=== PATIENT | female | born 1950 | race Caucasian/White ===

== ENCOUNTER 2016-09-12 12:16 | Inpatient (IN) | payer BC ==
[2016-09-12] MEDS ORDERED: Morphine INJ* 4 MG/ML 1 ML SYRINGE IV ONE (13:44)
[2016-09-12] MEDS ORDERED: Ondansetron INJ* 2 MG/ML VIAL IV ONE (13:44)
[2016-09-12 13:54] LABS: Hematocrit 37 % (35-47); Hemoglobin 12.4 g/dl (12.0-16.0); Mean Corpuscular HGB Conc 34 g/dl (31-36); Mean Corpuscular Hemoglobin 32 pg (27-31); Mean Corpuscular Volume 94 fL (80-97); Mean Platelet Volume 7 um3 (7.4-10.4); Red Blood Count 3.91 10^6/ul (4.0-5.4); Red Cell Distribution Width 14 % (10.5-15); White Blood Count 11.4 10^3/ul (3.5-10.8)
--- NOTE | 2016-09-12 14:07 | RAD ---
INDICATION: Atraumatic right hip pain. COMPARISON: Comparison is made with a prior x-ray study of the hips from October 11, 2015. TECHNIQUE: An AP view of the pelvis and frontal and lateral views of the right hip were obtained. FINDINGS: The bones are in normal alignment. No fracture is seen. There is moderate to severe osteoarthritic change in the right hip and severe osteoarthritic change in the left hip. There has been progression of disease from the prior study which has progressed the most in the left. IMPRESSION: MODERATE TO SEVERE OSTEOARTHRITIC CHANGE IN THE RIGHT HIP AND SEVERE OSTEOARTHRITIC CHANGE IN THE LEFT HIP WHICH HAS PROGRESSED FROM THE PRIOR STUDY.
[2016-09-12 14:10] LABS: Albumin 4.6 g/dL (3.2-5.2); BUN/Creatinine Ratio 11.3 (8-20); Calcium 9.8 mg/dL (8.6-10.3); EGFR African American 149.4 (>60); EGFR Non-African American 116.1 (>60); Globulin 3.6 g/dL (2-4); Potassium 3.8 mmol/L (3.5-5.0); Total Bilirubin 0.6 mg/dL (0.2-1.0); Total Protein 8.2 g/dL (6.4-8.9)
[2016-09-12] MEDS ORDERED: Gadoteridol* (CONTRAST) 279.3 MG/ML 10 ML IV ONE (15:34)
[2016-09-12 16:12] LABS: TSH (Thyroid Stimulating Horm) 1.22 mcIU/mL (0.34-5.60)
[2016-09-12 16:19] LABS: Free T4 1.15 ng/dL (0.61-1.12)
--- NOTE | 2016-09-12 16:40 | RAD ---
Indication: Fever, prior surgery for epidural abscess. Image sequences: Sagittal T1, T2, STIR, axial T1 and T2-weighted images of the lumbar spine were obtained. Approximately 12 mL of ProHance was injected and sagittal and axial fat-suppressed T1-weighted images were repeated. Comparison is made with previous exam dated June 28, 2016. Heterogeneous bone marrow signal is noted at L2 and L3 with endplate changes. Findings are similar to that seen on June 28, 2016. Patient is status post laminectomy from approximately L2-L5. At L4-L5 and L5-S1 the disc space appears normal. At L3-L4 there is degenerative disc disease noted. Broad-based protrusion is noted. This causes some indentation on the ventral thecal sac. This appears to be similar to that seen previously. There is enhancing epidural tissue at the ventral aspect of the thecal sac from L2 through L4 which is not significant change since previous exam. At L2-L3 there is increased broad-based protrusion with flattening of the thecal sac. Moderate degree of facet arthropathy is noted. At L1-L2 there is no disc protrusion noted. No central foraminal stenosis is noted. At T12-L1 broad-based protrusion flattens the thecal sac. At the laminectomy site again noted is a irregular shaped fluid collection which appears to BE smaller than on previous exam. This previously measured up to 11 mm at the level of L3. The AP dimension is slightly smaller and likely represents resolving postoperative fluid collections. IMPRESSION: POSTOPERATIVE CHANGES ARE NOTED WITH LAMINECTOMIES FROM L2 THROUGH L4. THERE IS INCREASING PROTRUSION NOTED AT L2-L3 WITH FLATTENING OF THE THECAL SAC AT THIS LEVEL. THERE ENHANCING TISSUE IN THE VENTRAL ASPECT OF THE DISC SPACE FROM L2 TO L3 SUGGESTIVE LIKELY REPRESENTING POSTOPERATIVE SCARRING AND HAS THIS WAS PRESENT PREVIOUSLY AND HAS NOT DISTENDED SINCE PREVIOUS EXAM. THE FLUID COLLECTION IN THE POSTERIOR ASPECT OF THE THECAL SAC APPEARS TO BE SLIGHTLY SMALLER THAN ON PRIOR EXAM.
[2016-09-12] MEDS ORDERED: Morphine INJ* 2 MG/ML 1 ML SYRINGE IV ONE (16:41)
[2016-09-12] MEDS ORDERED: LORazepam INJ* 2 MG/ML 1 ML VIAL IV PUSH ONE (16:41)
[2016-09-12] MEDS: NS 0.9% 1000 ML* 1,000 ML IV SCH (16:48)
[2016-09-12] MEDS ORDERED: Cyclobenzaprine TAB* 10 MG PO PRN (17:00)
[2016-09-12] MEDS ORDERED: Lidocaine PATCH 5%* 1 PATCH TRANSDERM SCH (17:00)
[2016-09-12] MEDS ORDERED: HYDROcodone/ACETAMIN 5-325 MG* 1 TAB PO PRN (17:00)
[2016-09-12] MEDS ORDERED: NS 0.9% 1000 ML* 1,000 ML IV SCH (17:00)
[2016-09-12] MEDS ORDERED: Acetaminophen TAB* 325 MG PO PRN (17:00)
[2016-09-12] MEDS ORDERED: Ondansetron INJ* 2 MG/ML VIAL IV PRN (17:00)
[2016-09-12 17:27] LABS: C Reactive Protein 2.29 mg/L (< 5.00)
[2016-09-12 17:52] LABS: Erythrocyte Sed Rate 50 mm/Hr (0-30)
[2016-09-12 19:51] LABS: BUN/Creatinine Ratio 11.9 (8-20); Calcium 10.1 mg/dL (8.6-10.3); EGFR Non-African American 88.6 (>60); Potassium 4.3 mmol/L (3.5-5.0)
[2016-09-12] MEDS: Heparin VIAL(*) 5000 UNITS/ML VIAL (FIVE THOUSAND) SUBCUT SCH (21:37)
[2016-09-12] MEDS ORDERED: Mouth Piece, Nicotine* 1 EACH CARTRIDGE INH PRN (22:12)
[2016-09-12] MEDS ORDERED: Nicotine Inhaler* 10 MG AMP INH PRN (22:12)
--- NOTE | 2016-09-13 00:11 | HP ---
HISTORY AND PHYSICAL: DATE OF ADMISSION: 09/12/16 PRIMARY CARE PROVIDER: Robin Vu DO ATTENDING PHYSICIAN WHILE IN THE HOSPITAL: Jane Wilkinson MD *(report dictated by Phill Xiong NP) CONSULTING NEUROSURGEON: Johan Cannon MD CHIEF COMPLAINT: Back pain. HISTORY OF PRESENT ILLNESS: Ms. Murphy is a 66-year-old female patient, who has had multiple back surgeries. She has had a laminectomy in January of last year, did have an epidural abscess requiring I and D with subsequent difficulty with wound healing. She had been doing well in the last couple of weeks; however, she thinks she may have fallen a week or so ago. She cannot really remember as to when. She landed on her knees. Today though and yesterday however, she had worsening back pain, starting in the lower back, radiating to the right side, down to the right thigh, right in the anterior portion of her thigh. She denied having any weakness. Denied having any fever or chills. She says that the pain was getting unbearable. She vomited twice and she was unable to control the pain, so she decided to come in to the ER to be evaluated today. She denied having any chest pain. She denied having any shortness of breath. She denied having any abdominal pain. There were 2 episodes of vomiting. No dysuria. No frequency. She denied having any loss of consciousness or any pruritus. She states that the pain became unbearable. She came in to the ED, was evaluated. There was concern also because it was found that her sodium was 119, but she denies having any recent medication changes and she denies being on any diuretics. Because of these findings, we were asked to evaluate for admission. PAST MEDICAL HISTORY: Significant for: 1. Hodgkin lymphoma. 2. Hypothyroid. 3. Hypertension. 4. Aortic regurgitation. 5. Spinal stenosis. 6. Anxiety. PAST SURGICAL HISTORY: 1. She has had a lumbar decompression. 2. I and D of an epidural abscess in January 2016. 3. Partial thyroidectomy. 4. Splenectomy. HOME MEDICATIONS: Include: 1. Ibuprofen 200 mg every 8 hours as needed. 2. Norvasc 2.5 mg daily. 3. Atenolol 75 mg daily. 4. Zocor 20 mg p.o. daily. 5. Synthroid 88 mcg daily. 6. Celexa 20 mg daily. ALLERGIES TO MEDICATIONS: Include LISINOPRIL and LOSARTAN. FAMILY HISTORY: Reviewed, essentially noncontributory. SOCIAL HISTORY: She is a pack a day smoker for about 40 years. She does drink 2 glasses of wine daily. Her surrogate decision maker is her friend, Wilfredo, and her brother, Isaiah. REVIEW OF SYSTEMS: There is no documented fever. She denied having any significant weight change. There was no double vision. She denies having any ear discharge. There is no rhinorrhea. No sore throat. No thyroid enlargement. She denied having any chest pain. There is no orthopnea. There is no nocturnal dyspnea. There is no abdominal pain. There was 1 episode of nausea. No vomiting. No dysuria. No frequency. No loss of consciousness. No pruritus. No skin ulcerations. Review of 14 systems completed, all others negative. PHYSICAL EXAMINATION GENERAL: At this time, Ms. Murphy is a 66-year-old female patient. She is sitting in the ER stretcher. She does not appear to be in any acute distress. VITAL SIGNS: Blood pressure 174/52 with a pulse of 78, respirations 16, O2 sat 97%, and temperature 98.8. HEENT: Head: Atraumatic and normocephalic. Eyes: Sclerae are anicteric and not pale. Throat: Oral mucosa appeared to be dry. No oropharyngeal erythema. NECK: Supple. LUNGS: Clear to auscultation bilaterally. No wheezes, rales, or rhonchi. HEART: Sounds S1, S2. Regular rate and rhythm. No murmurs, rubs, or gallops. ABDOMEN: Soft, flat, and nontender. Bowel sounds present. EXTREMITIES: Pulses were 2+ throughout. She is actually able to move all 4 extremities. She has 5/5 strength with flexion from the knees and extension at the knee. She has 5/5 strength on dorsiflexion and plantar flexion. NEUROLOGIC: She is awake, alert, and oriented x3. Speech is clear. She had no gross focal deficits. She is moving the lower extremities. Sensation is intact bilaterally. There is no numbness or tingling on my exam. She just complains subjectively of having numbness to the anterior portion of her thigh. SKIN: Grossly intact. She has an incision noted to the lumbar spine, it was palpated. There was no point tenderness along the lumbar spine and no erythema or open areas noted. DIAGNOSTIC STUDIES/LAB DATA: Today revealed WBC of 11.4, RBC of 3.91, hemoglobin 12.4, hematocrit of 37, and platelet count of 369. INR was 0.86 and PTT of 32.0. Her sodium was 119, her baseline sodium appears to run around 130. The potassium was 3.8, chloride 83, bicarb 27, BUN was 6, creatinine of 0.53, glucose 114, lactic 1.1, and calcium 9.8. Total bili 0.6, AST 35, ALT 31, and alk phos 85. Albumin 4.6. TSH 1.22 and free T3 1.15. She had a hip/pelvis x- ray, which showed moderate- to-severe osteoarthritic change in the right hip with severe osteoarthritic change in the left hip, which has progressed from the previous study. A lumbar spine MRI was obtained today, which impression read as postoperative changes are noted with laminectomies from L2 through L4. There was increasing protrusion at L2-3 with flattening of the thecal sac at this level. There is enhancing tissue in the ventral aspect of the disk space from L2-3 suggests that it is likely representing postoperative scarring and as this was present previously and has not descended since prior exam. The fluid collection in the posterior aspect of the thecal sac appears to be slightly smaller than prior exam. Old medical records were reviewed. ASSESSMENT AND PLAN: Ms. Murphy is a 66-year-old female patient coming in to the ER today with complaints of back discomfort, found to be hyponatremic. We were asked to evaluate in admission. She will be admitted under observation status for: 1. Back pain: I suspect that symptoms she is having now is probably related to the L2-3 disk space and protrusion with possible scarring. I did touch base with Dr. Cannon, who will be evaluating the patient. The plan at this point will be to go ahead and do PT and OT, pain management, and pain control. Should she spike any fevers, though I have a low threshold, start antibiotics. Blood cultures were sent. I do not believe this is reflection of her abscess. At this point, we are checking an ESR and a CRP. We will continue to follow. 2. Hyponatremia: We will go ahead and send off urine studies and serum osmol studies and cortisol level. For now though, I am going to hydrate her and repeat the BMP later tonight to see where we are headed. 3. Hodgkin lymphoma: Follow with the primary. 4. Hypothyroidism: Continue Synthroid. 5. Hypertension: Continue medications as prescribed. 6. Aortic regurgitation: Continue to follow up with her primary. 7. History of anxiety: We will continue supportive care. 8. DVT prophylaxis: She is high risk and will be placed on heparin subcu. 9. Code status: Full code. 10. Fluids, electrolytes, and nutrition: She can have a heart healthy diet and also fluid restricted. TIME SPENT: Time spent on the admission was approximately 70 minutes; greater than half the time was spent [id number] with the patient obtaining my history and physical, the other half time is spent going over the plan of care with the patient and implementing plan of care. I discussed the plan of care with my attending, Dr. Wilkinson. She is in agreement. PHILL XIONG NP CC: Dr. Vu; Dr. Cannon [id number]/CPS #: [id number] [facility] HOSPITALAayush
[2016-09-13 00:26] LABS: Urine Bilirubin Negative (Negative); Urine Glucose Negative (Negative); Urine Nitrite Negative (Negative)
[2016-09-13 01:40] LABS: BUN/Creatinine Ratio 15.5 (8-20); Calcium 9.4 mg/dL (8.6-10.3); EGFR African American 106.6 (>60); EGFR Non-African American 82.9 (>60); Potassium 3.8 mmol/L (3.5-5.0)
[2016-09-13] MEDS: Morphine INJ* 2 MG/ML 1 ML SYRINGE IV PRN ×2 (02:08→08:24)
[2016-09-13] MEDS: NS 0.9% 1000 ML* 1,000 ML IV SCH ×2 (04:35→13:35)
[2016-09-13] MEDS: Lidocaine Patch REMOVE* 1 NOTE MISC SCH ×2 (05:15→05:24)
[2016-09-13] MEDS: Heparin VIAL(*) 5000 UNITS/ML VIAL (FIVE THOUSAND) SUBCUT SCH ×3 (05:15→21:55)
[2016-09-13] MEDS: Levothyroxine TAB* 88 MCG TAB PO SCH (05:15)
[2016-09-13 06:01] LABS: Hematocrit 34 % (35-47); Hemoglobin 11.4 g/dl (12.0-16.0); Mean Corpuscular HGB Conc 34 g/dl (31-36); Mean Corpuscular Hemoglobin 33 pg (27-31); Mean Corpuscular Volume 95 fL (80-97); Mean Platelet Volume 8 um3 (7.4-10.4); Red Blood Count 3.52 10^6/ul (4.0-5.4); Red Cell Distribution Width 14 % (10.5-15); White Blood Count 6.8 10^3/ul (3.5-10.8)
[2016-09-13 06:21] LABS: BUN/Creatinine Ratio 15.7 (8-20); Calcium 9.2 mg/dL (8.6-10.3); EGFR African American 108.3 (>60); EGFR Non-African American 84.2 (>60); Potassium 3.7 mmol/L (3.5-5.0)
[2016-09-13] MEDS ORDERED: Atorvastatin* 10 MG TAB PO SCH ×2 (09:00→21:00)
[2016-09-13] MEDS ORDERED: Polyethylene Glycol 3350* 17 GM PACKET PO PRN (09:44)
--- NOTE | 2016-09-13 09:45 | PN ---
Subjective Date of Service: 09/13/16 Interval History: Patient seen this morning. Continues to have R low back and hip pain, tearful at times. Some numbness on the anterior thigh that she thinks is new. No issues with bladder/bowel incontinence. Family History: Unchanged from Admission Social History: Unchanged from Admission Past Medical History: Unchanged from Admission Objective Active Medications: Acetaminophen (Tylenol Tab*) 650 mg PO Q4H PRN Hydrocodone Bitart/Acetaminophen (Leona 5-325 Tab*) 1 tab PO Q4H PRN Amlodipine Besylate (Norvasc Tab*) 2.5 mg PO DAILY RIGO Atenolol (Tenormin Tab*) 75 mg PO DAILY RIGO Atorvastatin Calcium (Lipitor*) 10 mg PO DAILY RIGO Citalopram Hydrobromide (Celexa Tab*) 20 mg PO DAILY RIGO Cyclobenzaprine HCl (Flexeril Tab*) 10 mg PO TID PRN Device (Nicotine Mouth Piece*) 1 each INH .USE WITH NICOTROL PRN Heparin Sodium (Porcine) (Heparin Vial(*)) 5,000 units SUBCUT Q8HR [facility] Sodium Chloride (Ns 0.9% 1000 Ml*) 1,000 mls @ 150 mls/hr IV PER RATE RIGO Sodium Chloride (Ns 0.9% 1000 Ml*) 1,000 mls @ 125 mls/hr IV PER RATE RIGO Levothyroxine Sodium (Synthroid Tab*) 88 mcg PO DAILY@0600 [facility] Lidocaine (Lidoderm 5% Patch*) 1 patch TRANSDERM 1700 [facility] Morphine Sulfate (Morphine Inj (Syringe)*) 2 mg IV Q2H PRN Nicotine (Nicotine Inhaler*) 10 mg INH Q2H PRN Ondansetron HCl (Zofran Inj*) 4 mg IV Q6H PRN Pharmacy Profile Note (Lidocaine Patch Remove*) 1 note PATCH OFF 0500 [facility] Vital Signs 09/12/16 09/12/16 09/12/16 15:00 16:30 16:48 Temperature 97.9 F Pulse Rate 76 72 Respiratory 16 16 Rate Blood Pressure 174/52 147/54 (mmHg) O2 Sat by Pulse 97 99 Oximetry 09/13/16 09/13/16 09/13/16 07:16 08:05 08:24 Temperature 98.1 F 98.2 F Pulse Rate 72 71 Respiratory 16 18 16 Rate Blood Pressure 153/58 145/62 (mmHg) O2 Sat by Pulse 97 98 Oximetry Oxygen Devices in Use Now: None Appearance: Middle-aged, F, laying in bed in NAD Eyes: No Scleral Icterus Ears/Nose/Mouth/Throat: Mucous Membranes Moist Neck: NL Appearance and Movements; NL JVP Respiratory: Symmetrical Chest Expansion and Respiratory Effort, Clear to Auscultation Cardiovascular: NL Sounds; No Murmurs; No JVD, RRR Abdominal: NL Sounds; No Tenderness; No Distention Lymphatic: No Cervical Adenopathy Extremities: No Edema Skin: No Rash or Ulcers Neurological: Alert and Oriented x 3, - - No TTP alone R lower back. No pain with R passive leg raise, 3/5 strength in RLE hip flexor, no deficits in LLE Result Diagrams: 09/13/16 05:15 09/13/16 05:15 Microbiology and Other Data: Microbiology 09/12/16 17:10 Nasal Screen MRSA (PCR)(PELON) - Final Nasal Mrsa Negative Assess/Plan/Problems-Billing Assessment: Back pain, hyponatremia in a 66 yo F with hx of HTN, hypothyroidism, anxiety, spinal stenosis, multiple back surgeries including laminectomy for epidural abscess in 01/2016 - Patient Problems (1) Back pain Current Visit: Yes Comment: Likely related to disc protrusion seen on MRI. Dr. Cannon to evaluate the patient. Continue analgesia. PT/OT pending. No evidence of infection. (2) Hyponatremia Current Visit: Yes Comment: Etiology unclear although responding to IVF making SIADH less likely. Recheck BMP at 1400. Urine studies and SOsm still pending. (3) HTN (hypertension) Current Visit: Yes Comment: Continue amlodipine and atenolol (4) Hypothyroid Current Visit: Yes Comment: Continue synthroid (5) DVT prophylaxis Current Visit: Yes Comment: HSQ
[2016-09-13] MEDS ORDERED: Senna TAB PO SCH (10:00)
[2016-09-13] MEDS ORDERED: LORazepam TAB(*) 0.5 MG ONE (10:19)
[2016-09-13] MEDS: Atenolol TAB* 50 MG PO SCH (10:29)
[2016-09-13] MEDS: LORazepam TAB(*) 0.5 MG PO PRN ×2 (10:29→18:58)
[2016-09-13] MEDS: amLODIPine TAB* 5 MG PO SCH (10:30)
[2016-09-13] MEDS: Citalopram TAB* 20 MG PO SCH (10:32)
--- NOTE | 2016-09-13 11:07 | RAD ---
INDICATION: Hyponatremia. Heavy smoking history. COMPARISON: Chest x-ray December 12, 2013, September 27, 2003 TECHNIQUE: PA and lateral dual-energy views were obtained. FINDINGS: Bones/Soft Tissues: There are no acute bony findings. There is a calcified mass projecting over the right upper chest soft tissues caudal to the clavicle. This is present previously and appears unchanged. The significance is uncertain. If there is pain related to the right shoulder, suggest limited CT imaging. Cardiomediastinal: The cardiomediastinal silhouette is normal. Lungs: There are no infiltrates. Pleura: There are no pleural effusions. Other: None IMPRESSION: NO ACTIVE DISEASE. PERSISTENT CALCIFIED MASS PROJECTING OVER THE SOFT TISSUES OF THE RIGHT UPPER CHEST.
[2016-09-13 11:16] LABS: Urine Bilirubin Negative (Negative); Urine Glucose Negative (Negative); Urine Nitrite Negative (Negative)
[2016-09-13] MEDS: Acetaminophen TAB* 325 MG PO SCH ×2 (13:35→21:55)
[2016-09-13] MEDS: Gabapentin CAP(*) 100 MG PO SCH ×2 (14:54→22:18)
[2016-09-13 15:00] LABS: BUN/Creatinine Ratio 19.2 (8-20); EGFR African American 152.7 (>60); EGFR Non-African American 118.7 (>60); Potassium 3.4 mmol/L (3.5-5.0)
--- NOTE | 2016-09-13 15:27 | PN ---
Progress Note - Progress Note Note: Neurosurgery Note Patient well known to me from prior surgeries and multiple office f/u visits. She has had a complex course of an extensive lumbar epidural infection treated by decompression, complicated by poor wound healing. She received prolonged antibiotics under the direction of Dr. Cuevas. Recently she developed increased right sided back and thigh pain She was seen in the ER where her Na was 119. She has had recent malaise and vomited a couple of times. She underwent an MRI sudy that showed extensive post op changes with no significant change from a similar study done in 06/27 Psychologically, she has struggled throughout her illness with depression which appears even more pronounced at this time. Exam reveals her wound has closed She has weakness of her right quadriceps and hip flexors It is difficult to tell due to pain whether this is more pronounced or not Imp She has some metabolic issue to create her hyponatremia I have ordered a CXR to screen for underlying Malignancy given her heavy smoking history I would recommend having Psych advise on her depression as this seems even worse than her usuual state She might benefit from Gabapentin I do not see a surgical issue at this time.
[2016-09-13] MEDS ORDERED: Lidocaine PATCH 5%* 1 PATCH TRANSDERM SCH (17:00)
--- NOTE | 2016-09-13 17:53 | PN ---
Hospitalist Progress Note Na trending back down after initial improvement with IVF. Stephen elevated, remaining studies pending. Will d/c fluids and continue fluid restriction. Continue to trend Na.
[2016-09-13 19:35] LABS: BUN/Creatinine Ratio 15.2 (8-20); Calcium 9.4 mg/dL (8.6-10.3); EGFR Non-African American 90.2 (>60); Potassium 3.8 mmol/L (3.5-5.0)
[2016-09-13] MEDS: Docusate CAP* 100 MG PO SCH (21:55)
--- NOTE | 2016-09-13 22:35 | ED ---
Hayder Corbin Adam, scribed for Hamilton Barnhart MD on 09/12/16 at 1311 . Lower Extremity - HPI Summary HPI Summary: Pt is a 66 year old female presenting with right hip pain that radiates to her right lower back. The pain set on yesterday afternoon while the pt was at work ( she owns a liquor store). She has been taking Advil for the pain. She also reports numbness in her right thigh. She has been having weakness in the right leg since she had surgery with Dr. Cannon last January for an "infection in (her ) spine." She states that she had an open surgical wound for 8 months, developed MRSA, and was on 8 weeks of doxycycline. She is concerned that she could have another infection now because she feels similar to the way she felt when she had MRSA. Pt also states that she fell on her way to the bathroom last week because she was "half asleep." Her friend states that she probably fell because of the right leg weakness because it causes her to have difficulty walking. Pt denies hitting her head or losing consciousness. She last saw Dr. Cannon 10 days ago. She states that he is aware that she has been having weakness in the right leg but he does not know about the pain that set on yesterday. She denies any fever, chills, or diaphoresis. - History of Current Complaint Chief Complaint: ED Stated Complaint: RIGHT HIP PAIN Hx Obtained From: Patient Onset of Pain: Prior to Arrival - Yesterday Onset/Duration: Still Present Severity Initially: Moderate Severity Currently: Moderate Pain Intensity: 10 Pain Scale Used: 0-10 Numeric Timing: Constant, Lasting Days Location: Is Discrete @ - Right hip Associated Signs And Symptoms: Positive: Weakness - Right leg, Other - Right lower back pain, numbness in the right thigh Aggravating Factor(s): Ambulation, Movement, Weight Bearing Alleviating Factor(s): Nothing Able to Bear Weight: Yes Related History: Other - Right leg weakness since having surgery last year - Allergies/Home Medications Allergies/Adverse Reactions: Allergies Allergy/AdvReac Type Severity Reaction Status Date / Time Lisinopril Allergy See Comment Verified 06/26/16 14:05 Losartan Allergy See Comment Verified 06/26/16 14:05 Home Medications: Home Medications Ibuprofen TAB* [Advil TAB*] 200 mg PO Q8H PRN 09/12/16 [History Confirmed ] Levothyroxine TAB* [Synthroid TAB*] 88 mcg PO DAILY 09/12/16 [History Confirmed 09/12/16] PMH/Surg Hx/FS Hx/Imm Hx Endocrine/Hematology History: Reports: Hx Thyroid Disease - ON MEDS Denies: Hx Diabetes Cardiovascular History: Reports: Hx Hypertension - ON MEDS, STATES WELL CONTROLLED, Other Cardiovascular Problems/Disorders - AORTIC REGURT Denies: Hx Pacemaker/ICD Respiratory History: Denies: Hx Asthma History: Denies: Hx Dialysis, Hx Renal Disease Musculoskeletal History: Reports: Hx Arthritis - NECK. HANDS, Other Musculoskeletal History - 07/12/2015 INFECTION IN SPINE/WOUND Sensory History: Denies: Hx Hearing Aid Psychiatric History: Reports: Hx Anxiety - ON MEDS, Hx Panic Disorder - Cancer History Cancer Type, Location and Year: [facility] 1982 Hx Chemotherapy: No Hx Radiation Therapy: No - Surgical History Surgery Procedure, Year, and Place: 2005 THYROIDECTOMY [facility]. 1981 SPLEENECTOMY [facility]. 12/16/13 [facility] laminectomy L5/S1. [facility] DISCECTOMY L2-L3 Hx Anesthesia Reactions: No Infectious Disease History: Denies: Traveled Outside the [place] in Last 30 Days - Family History Known Family History: Positive: Other - Negative: malignant hyperthermia, anesthesia reaction, breast cancer - Social History Occupation: Employed Full-time Lives: Alone Alcohol Use: Daily Alcohol Amount: 2 GLASSES/NIGHT Hx Substance Use: No Substance Use Type: Reports: None Hx Tobacco Use: Yes Smoking Status (MU): Current Every Day Smoker Type: Cigarettes Amount Used/How Often: LESS THEN 1PPD 40 YRS Have You Smoked in the Last Year: Yes Review of Systems Negative: Fever, Chills, Skin Diaphoresis Negative: Erythema Negative: Sore Throat Negative: Chest Pain Negative: Shortness Of Breath, Cough Negative: Abdominal Pain, Vomiting, Nausea Negative: dysuria, hematuria Positive: Arthralgia - Right hip, Myalgia - Right lower back. Negative: Edema Negative: Rash Neurological: Other - Negative dizziness Positive: Weakness - Right leg, Numbness - Right thigh All Other Systems Reviewed And Are Negative: Yes Physical Exam - Summary Physical Exam Summary: Constitutional: Well-developed, Well-nourished, Alert. (-) Distressed Skin: Warm, Dry HENT: Normocephalic; Atraumatic Eyes: Conjunctiva normal Neck: Musculoskeletal ROM normal neck. (-) JVD, (-) Stridor, (-) Tracheal deviation Cardio: Rhythm regular, rate normal, Heart sounds normal; Intact distal pulses; The pedal pulses are 2+ and symmetric. Radial pulses are 2+ and symmetric. (-) Murmur Pulmonary/Chest wall: Effort normal. (-) Respiratory distress, (-) Wheezes, (-) Rales Abd: Soft, (-) Tenderness, (-) Distension, (-) Guarding, (-) Rebound Musculoskeletal: (-) Edema Lymph: (-) Cervical adenopathy Neuro: Alert, Oriented x3 Psych: Mood and affect Normal Triage Information Reviewed: Yes Vital Signs On Initial Exam: Initial Vitals Pulse Resp BP Pulse Ox 80 16 140/71 98 09/12/16 12:18 09/12/16 12:18 09/12/16 12:18 09/12/16 12:18 Vital Signs Reviewed: Yes Diagnostics - Vital Signs Vital Signs Pulse Resp BP Pulse Ox 09/12/16 12:18 80 16 140/71 98 - Laboratory Result Diagrams: 09/12/16 13:20 09/12/16 13:20 Lab Statement: Any lab studies that have been ordered have been reviewed, and results considered in the medical decision making process. - Radiology HIP/PELVIS X-RAY Radiology Interpretation Completed By: Radiologist - IMPRESSION: MODERATE TO SEVERE OSTEOARTHRITIC CHANGE IN THE RIGHT HIP AND SEVERE OSTEOARTHRITIC CHANGE IN THE LEFT HIP WHICH HAS PROGRESSED FROM THE PRIOR STUDY. Re-Evaluation - Re-Evaluation First Eval Re-Evaluation Time: 14:25 - Patient reveals that she has been having polyuria, 2 episodes of vomiting, and 1 episode of diarrhea yesterday. Change: Unchanged Lower Extremity Course/Dx - Course Course Of Treatment: Call out to Dr. Cannon at 14:44. He never returned the call. Patient is admitted. - Diagnoses Provider Diagnoses: Right leg weakness, Hyponatremia - Physician Notifications Discussed Care of Patient With: Dr. Lawson (hospitalist) at 14:26. Patient will be admitted. Discharge - Discharge Plan Condition: Stable Disposition: ADMITTED TO [facility] Referrals: Robin Vu DO [Primary Care Provider] - The documentation as recorded by the Hayder coronado Adam accurately reflects the service I personally performed and the decisions made by me, Hamilton Barnhart MD.
[2016-09-14] MEDS ORDERED: Lidocaine Patch REMOVE* 1 NOTE MISC PATCH OFF SCH (05:00)
[2016-09-14] MEDS: Heparin VIAL(*) 5000 UNITS/ML VIAL (FIVE THOUSAND) SUBCUT SCH (05:01)
[2016-09-14] MEDS: Levothyroxine TAB* 88 MCG TAB PO SCH (05:01)
[2016-09-14 06:44] LABS: BUN/Creatinine Ratio 14.8 (8-20); Calcium 9.5 mg/dL (8.6-10.3); EGFR Non-African American 98.7 (>60); Potassium 3.2 mmol/L (3.5-5.0)
[2016-09-14] MEDS ORDERED: Potassium Chlor TAB* 20 MEQ TAB.ER PO ONE (08:48)
--- NOTE | 2016-09-14 09:05 | DCNOTE ---
Overnight events noted. Patient states she didn't feel confused, was woken up and guessed at the time without looking at the clock. Said her R knee gave out in the bathroom as she was trying to navigate between the walker, the chair and the toilet, happens occasionally at home. Says she is feeling better this morning, pain is improving, still tearful at times. Anxious to leave. On exam, RRR, s1 and s2 present, no m/g/r, abd soft, NTND, BS+, improvement in RLE ROM Will discharge home today with PCP f/u. Suspect hyponatremia may have been due to combination of dehydration and some component of SIADH, possibly due to pain. Will continue fluid restriction until outpatient labs checked early next week.
[2016-09-14] MEDS: Acetaminophen TAB* 325 MG PO SCH (10:26)
[2016-09-14] MEDS: amLODIPine TAB* 5 MG PO SCH (10:26)
[2016-09-14] MEDS: Atenolol TAB* 50 MG PO SCH (10:26)
[2016-09-14] MEDS: Citalopram TAB* 20 MG PO SCH (10:27)
[2016-09-14] MEDS: Docusate CAP* 100 MG PO SCH (10:27)
[2016-09-14 11:45] VITALS: BP 151/60
--- NOTE | 2016-09-15 05:29 | DS ---
DISCHARGE SUMMARY: DATE OF ADMISSION: 09/12/16 DATE OF DISCHARGE: 09/14/16 PRIMARY CARE PHYSICIAN: Robin Vu DO CONSULTANTS DURING HOSPITALIZATION: Johan Cannon MD, Neurosurgery. PRIMARY DISCHARGE DIAGNOSES: 1. Back pain. 2. Lumbar radiculopathy. 3. Hyponatremia likely due to SIADH and dehydration. SECONDARY DIAGNOSES: 1. Hypothyroidism. 2. Hypertension. 3. Aortic regurgitation. 4. Spinal stenosis. 5. Anxiety. 6. Distant history of Hodgkin lymphoma. STUDIES DONE DURING HOSPITALIZATION: Hip x-ray, impression: Moderate-to- severe osteoarthritic change of the right hip and severe osteoarthritic change in the left hip, which has progressed from prior study. MRI of the lumbar spine, impression: Postoperative changes are noted with laminectomies from L2 through L4. There is increasing protrusion noted at L2, L3 with flattening of the thecal sac at this level. There is enhancing tissue in the ventral aspect of the disk space from L2 to L3, suggests this is likely representing postoperative scarring and this was present previously and has not descended since previous exam. Fluid collection in the posterior aspect of the thecal sac appears to be slightly smaller than on prior exam. Chest x-ray, impression: No active disease. Persistent calcified mass projecting over the soft tissues of the right upper chest. HISTORY OF PRESENT ILLNESS AND HOSPITAL SUMMARY: Please see the full history and physical dictated by Phill Xiong NP, for full details. Briefly, Ms. Murphy is a 66-year-old female with past medical history as above including multiple back surgeries complicated by an epidural abscess and wound healing difficulties who presented to the hospital with worsening back pain. The patient denies any trauma. She also had some nausea and vomiting as well. In the emergency department, she was found to have a sodium of 119. She had imaging done of the back as above, which showed no acute surgeries needed. Dr. Cannon consulted and thought that she should be managed symptomatically. In regards to the patient's low sodium, she was initially started on IV fluids with improvement in the sodium to 124. Urine studies subsequently came back and showed an elevated urine sodium and urine osmolality more consistent with SIADH. The patient's sodium started to trend back down. IV fluids were stopped and fluid restriction was continued with improvement in her sodium to 126 on discharge. She was instructed to continue fluid restriction at this time until she has her labs drawn early next week at which point her PCP can determine whether to liberalize this further. The patient was treated symptomatically for her back pain. She underwent physical therapy with slow improvement in her symptoms. She was able to ambulate with a walker. She will be discharged home and follow up with outpatient physicians. TIME SPENT: Total time spent on this discharge, 45 minutes. This is a summary of the hospitalization. Please see the full medical record for further details. CC: Dr. Vu; Dr. Cannon* [id number]/CPS #: [id number] [facility]
== END 2016-09-14 11:30 | disposition home health service (06) | DRG 424 ==
LOC: ED 12:16 → MED 14:48 → OBSVTOIN 09-13 09:51
PROVIDERS: ADMIT Internal Medicine; ATTEND Hospitalist
DX: E22.2 Syndrome of inappropriate secretion of antidiuretic hormone (principal); I10 Essential (primary) hypertension; M51.16 Intervertebral disc disorders with radiculopathy, lumbar region; R53.1 Weakness; M19.042 Primary osteoarthritis, left hand; M19.041 Primary osteoarthritis, right hand; F41.9 Anxiety disorder, unspecified; Z80.3 Family history of malignant neoplasm of breast; F17.210 Nicotine dependence, cigarettes, uncomplicated; E03.9 Hypothyroidism, unspecified; M48.00 Spinal stenosis, site unspecified; Z88.8 Allergy status to other drugs, medicaments and biological substances; I35.1 Nonrheumatic aortic (valve) insufficiency; E86.0 Dehydration; Z85.71 Personal history of Hodgkin lymphoma; M16.11 Unilateral primary osteoarthritis, right hip
CPT/HCPCS: 36415; 71020; 72158; 80048; 80053; 81003; 83605; 83930; 83935; 84300; 84439; 84443; 85025; 85610; 85652; 85730; 86140; 87040; 87641; 99406; A9270-GY; A9579; G0378; J1644; J2060; J2270; J2405

== ENCOUNTER 2018-09-30 21:20 | Emergency (ER) | payer MEDICARE ==
--- OUTSIDE RECORDS SUMMARY | 2018-09-30 21:44 | XMS REPORT | Continuity of Care Document ---
:1950 External Reference #:[id number] Author Name Robin Vu D.O. Address [address] [place] [address] Care Team Providers Name Role Phone HCP given Primary Care Physician Unavailable Payers Date Identification Numbers Payment Provider Subscriber Effective: 2017 Policy Number: [id number] [facility] Yuliet Garcia PayID: [id number] [address] [place] [address] Effective: 2017 Policy Number: [id number] [facility] Yuliet Garcia PayID: [id number] [address] [place] [address] Advance Directives Description No Information Available Problems Active Problems Provider Date Generalized anxiety disorder Adma Arnold M.D. Onset: 11/20/2003 Postoperative hypothyroidism Adam Arnold M.D. Onset: 12/26/2005 Tobacco user Clyde Herrera M.D. Onset: 10/27/2006 Pure hypercholesterolemia Adam Arnold M.D. Onset: 12/18/2011 Chronic obstructive lung disease Adam Arnold M.D. Onset: 12/18/2011 Allergic rhinitis Toma Little MD Onset: 02/27/2012 Low back pain Robin Vu D.O. Onset: 06/24/2014 Neuralgia Robin Vu D.O. Onset: 06/24/2014 Anxiety state Robin Vu D.O. Onset: 06/24/2014 Spinal stenosis of lumbar region Marlys Turner PA Onset: 09/20/2016 Major depressive disorder Marlys Turner PA Onset: 09/20/2016 Osteoarthritis of hip, unspecified Marlys Turner PA Onset: 09/20/2016 Family History Date Family Member(s) Observation Comments Father Diabetes, Nos in adult, 70s. Father due to Heart Disease () - emergency bipass surgery for blockage, didn't survive surgery. at age 78. Father High Blood Pressure Father Hypercholesterolemia Father Scleroderma "Scleromyxedema" of hands per pt Father Gareth Father 192 Mother High Blood Pressure : Mother due to Lung Cancer (02/2009) Mother Hypercholesterolemia Mother [place] Mother 192 First Brother General Health Good First Brother Isaiah First Brother 194 Social History Type Date Description Comments Sex Unknown Education Highest level completed, 12th grade Marital Status Lives With Male Partner Smoke-Free Home is not smoke-free Occupation Self Employed [employer] Abuse No history of abuse General No kids. Tobacco Use Start: Unknown Current Cigarette 3/4 pack daily Smoker since 22years old=42 *.75=approx. 31.5 pack year history. ETOH Use 2-3 Drinks Most Nights, But "Not Always" (~4X/WK) Tobacco Use Start: Unknown Patient is a current Less than a PPD smoker, smokes every day Smoking Status Reviewed: 09/20/18 Patient is a current Less than a PPD smoker, smokes every day Exercise Type/Frequency Exercises regularly Sun Exposure moderate amount of sun exposure Sun Exposure Uses sunscreen Seat Belt/Car Seat always uses seat belt Currently Active Patient is currently sexually active Contraceptive Methods Current methods include condoms Age 1st [place] 20 Years Old Additional Info Sexual preference is men Sexual Hx Patient has had 9 sexual partners. Allergies, Adverse Reactions, Alerts Active Allergies Reaction Severity Comments Date Lisinopril 06/07/2018 Losartan 06/07/2018 Inactive Allergies No Known Drug Allergy 06/21/2010 Medications Active Medications SIG Qnty Indications Ordering Date Provider Combivent Respimat take 1 puff 4 12gm J44.1 [facility], 09/12/2018 times a day for Frieda Kelly 20-100mcg/Act Aerosol chronic obstructive lung disease Hydrocortisone apply 1 28.35units L20.9 [facility], 09/12/2018 2.5% application Frieda Kelly Cream topically to affected area 2 times per day for irritated skin Fluconazole 5ml swish and 70ml Mirella, 09/11/2018 40mg/ml swallow daily x 14 Robin D.O. Suspension Rec days Duloxetine HCL one po daily Unknown 03/31/[address] Soriano Rosuvastatin Calcium one po daily Unknown 01/08/2018 20mg Tablets Clopidogrel Bisulfate one po daily Unknown 11/13/2017 75mg Tablets Aspirin Adult Low 1 by mouth every Unknown 11/13/2017 Dose day 81mg Tablets Alprazolam take 1/2 to 1 14tabs F41.9 Clayton, 11/25/2013 0.5mg tablet by mouth Denita Medina Tablets For Acute Anxiety Every 12 Hours as Needed. Max Of 2 Tabs/Day Amlodipine Besylate 1 po qd 90tabs Unknown 11/24/2013 2.5mg Tablets Atenolol 1 1/2 po qd 90tabs Unknown 11/24/2013 50mg Tablets Levothyroxine Sodium take 1 tablet by 90tabs E89.0 Mirella, 07/04/2013 mouth every Frieda Kelly 88mcg Tablets morning On An Empty Stomach, For Thyroid, Advil prn Unknown History Medications Cefdinir 1 cap by mouth 20caps J44.1 Robin Vu, 06/07/2018 - 300mg Capsules twice a day D.O. 06/17/2018 Symbicort inhale 2 puffs 30.6gm Robin Vu, 06/07/2018 - 160-4.5mcg/Act by mouth twice a D.O. 07/30/2018 Aerosol day gargle after use Methylprednisolone 6 tabs on day 1; 21tabs Robin Vu, 06/07/2018 - 4mg then 5 tabs D.O. 06/13/2018 Tablets day2; then 4 tabs ay3; then 3 tabs day4; then 2 tabs day 5; then 1 tab day 6 Citalopram Hydrobromide take 2 tablets 180tabs F32.9 Adam Arnold, 11/2017 - 20mg by mouth daily M.DRenae 05/30/2018 Tablets Ventolin HFA 2 puffs q4-6 18gm J44.9 Robin Vu, 07/04/2017 - 108(90Base) hours as needed D.O. 09/10/2018 mcg/Act Aerosol for wheezing or shortness of breath Ciclopirox apply to Unknown 06/15/2016 - 8% Solution affected 09/19/2016 fingernail twice a day including nail bed. Can take 2-3 mos. to see a change. Celexa 2 tabs by mouth 180tabs F32.9 Adam Arnold, 05/16/2016 - 20mg Tablets daily M.D. 04/16/2018 Advil one daily and OTC Unknown 01/10/2016 - 200mg Capsules prn in the 11/08/2017 afternoon Oxycodone HCL 1-2 by mouth Unknown 12/28/2015 - 5mg Tablets every 4-6 hours 05/15/2016 as needed for severe pain Flexeril 1 cap by mouth Unknown 12/28/2015 - 5mg Tablets tid prn spasm 05/15/2016 Tramadol HCL 1-2 by mouth Orthopedic 11/19/2015 - 50mg Tablets every 6 hours as [facility] 05/15/2016 needed for pain Escitalopram Oxalate take 1 tablet by 30tabs F41.1 Robin Vu, 2015 - 10mg mouth once daily D.O. 05/16/2016 Tablets F41.9 Lexapro 1 by mouth every 90tabs F41.1 Robin Vu, 06/14/2015 - 10mg day D.O. 11/17/2015 Tablets F41.9 Combivent Respimat 1 puffs every 4 hours as 1inh J44.9 Clayton, 2015 - needed for asthma Denita Medina 07/04/2017 20-100mcg/Act symptoms/cough/sob Aerosol Acetaminophen-Codei 1-2nby mouth three times 21tabs 724.2 Mirella, 2014 - ne #2 a day as needed for Javi KellyORenae 01/03/2015 300-15mg pain. Tablets Lexapro 1/2 by mouth every day 45tabs F41.1 Mirella, 11/25/2013 - 20mg Robin D.O. 06/14/2015 Tablets F41.9 Carnes Probiotic OTC Unknown 11/24/2013 - 04/14/2014 Crispin [facility] 1 po qd Unknown 11/24/2013 - Pain Extra Strength 01/03/2015 500-32.5mg Tablets Alprazolam 1/2-1 tabs for 2tabs 729.2 Sop[facility]onaldk, 09/25/2013 - 0.5mg procedure Frieda Kelly 11/24/2013 Tablets Gabapentin 1 pill tonight 90caps 729.5 Clayton, 04/21/2013 - 300mg then 1 pill twice Denita Medina 05/19/2013 Capsules daily for 1 day then 1 pill 3x/day Simvastatin 1 by mouth every E78.0 Silcoff, 11/25/2012 - 20mg evening to lower Denita Medina 05/30/2018 Tablets cholesterol Atorvastatin Calcium take 1 tablet by 272.0 Unknown 10/21/2012 - mouth at bedtime 11/25/2012 40mg Tablets Lorazepam 1/4-1/2 tab by 2tabs Clayton, 07/16/2012 - 0.5mg mouth 30-60Min Denita Medina 11/24/2013 Tablets Prior To Planned Flight; May Repeat After 1 hr If Needed Loratadine 1 po qd daily destin 90tabs 477.9 Toma Little 02/27/2012 - 10mg allergies. 11/25/2012 Tablets Astelin 2 sprays in each 1units 477.9 Toma Little 02/27/2012 - 137mcg/Harrah nostril 2x/daily. 11/25/2012 Solution this is a nasal antihistamine. use if needed as discussed. Fluticasone 2 sprays into each 3units 477.9 Toma Little 02/27/2012 - Propionate nostril qd for 11/25/2012 50mcg/Act nasal congestion. Suspension destin allergies. rinse mouth post Simvastatin 1 by mouth every 272.0 Silcoff, 12/18/2011 - 20mg evening to lower Denita Medina 10/21/2012 Tablets cholesterol Nicotine apply 1 patch, 42units 305.1 Silcoff, 12/18/2011 - 21mg/24HR change daily as Denita Medina 11/25/2012 Patches 24HR directed; use for 6 weeks then change to 14mg strength Simvastatin 2 by mouth every 0tabs 272.0 Unknown 12/17/2011 - 20mg evening 12/18/2011 Tablets Synthroid Take 1 Tablet 90tabs 244.0 Silcoff, 10/08/2011 - 88mcg Every Morning On Denita Medina 07/04/2013 Tablets An Empty Stomach. Azithromycin 2 by mouth on day 6tabs Silcoff, 07/12/2011 - 250mg then 1 by mouth Denita Medina 07/17/2011 Tablets daily for 4 more days Prednisone 1 po qd for 5 5tabs 466.0 Silcoff, 06/21/2010 - 50mg days; start this Denita Medina 07/01/2010 Tablets only if symptoms not improving as expected Combivent 2 puffs every 4 14.700gm 466.0 Silcoff, 06/21/2010 - hours as needed Denita Medina 12/18/2011 18-103mcg/Act for cough, chest Aerosol congestion, wheezing PT For Neck OA please instruct in 719.68 Clayton, 05/10/2009 - hep Denita Medina 05/26/2010 Azithromycin 2 po qd on day 1 6tabs 466.0 Silcoff, 03/18/2009 - 250mg then 1 po qd for 4 Denita Medina 03/23/2009 Tablets days Combivent 2 puffs q4h prn 1units 466.0 Silcoff, 03/12/2009 - Aerosol for cough, Denita Medina 06/20/2010 shortness of breath, wheezing Zyrtec 1 PO qd prn For 90tabs 477.9 Silcoff, 11/09/2006 - 10mg Tablets Allergies Denita Medina 04/14/2014 Prednisone 1 po bid x 7 days 14tabs 491.21 vitor 11/01/2006 - 20mg 11/09/2006 Tablets Combivent 2 puffs qid 1units 491.21 vitor 11/01/2006 - Aerosol 03/11/2009 Chantix Starting take as directed. 305.1 vitor 11/01/2006 - Month Terrence 11/09/2006 Biaxin 1 po bid until 20tabs 466.0 Clyde Lawler 10/27/2006 - 250mg Tablets gone Denita Herrera 11/06/2006 Lexapro take 1 tablet 90tabs 300.02 Silcoff, 12/26/2005 - 10mg Tablets daily for mood Denita Medina 11/25/2013 300.00 Atenolol 1 po qd for blood 90tabs 785.1 Clayton 09/26/2005 - 50mg Tablets pressure Denita Medina 11/24/2013 Lexapro 1.5 po qd for 4-6 300.02 Silcojames, 09/26/2005 - 10mg Tablets wks then 2 po qd if Denita Medina 12/26/2005 tolerating well but anxiety continues to be A problem. Lorazepam 1/4 tab po q6h prn 20tabs 300.02 Silcojames, 07/10/2005 - 0.5mg for anxiety Denita Medina 12/18/2011 Tablets Nystatin Swish And Swallow 280cc 529.9 Toma Little 03/23/2005 - 5cc qid For 2 Weeks 11/25/2012 100,000Units/ML Suspension Z-Terrence take as directed 1Pack Clayton 11/24/2004 - 250mg Tablets Denita Medina 11/29/2004 Amoxil 1 PO tid For 10 30tabs 465.9 Silcojames, 10/31/2004 - 500mg Tablets Days For Sinusitis Denita Medina 11/10/2004 Zyrtec 1 po qd 90tabs Silcojames, 04/05/2004 - 10mg Tablets Denita Medina 10/31/2004 Lexapro 1 po qd 90tabs 300.02 Clayton, 11/10/2003 - 10mg Tablets Denita Medina 09/26/2005 Lorazepam 1/8 of A tablet q8h 15tabs 300.02 Brennan 09/18/2002 - 1mg Tablets prn for anxiety MD Jimmy 07/10/2005 Synthroid take 1 tablet by 90tabs 244.0 Clayton, - 75mcg mouth once daily Denita Medina 10/08/2011 Tablets Aspirin Adult Low Unknown - Strength 12/21/[address] Vitamin B12 take 1 sublingual Unknown - 1000mcg tablet daily 11/08/2017 Tablets ER Vitamin D3 Unknown - Chewtabs 05/30/2018 Acetaminophen 2-3 tabs by mouth Unknown - 325mg every 4 hours as 12/21/2016 Tablets needed for pain or fever; max 4 doses/24hrs Ferrous Sulfate 1 twice a day Unknown - 05/30/2018 325(65Fe) mg Tablets Bactroban Nasal internasally bid Unknown - 2% for MRSA treatment 11/08/2017 Ointment Immunizations CPT Code Status Date Vaccine Lot # [id number] Given 03/18/2018 Influenza Vaccine, Inactivated, Subunit, [facility] Given 03/14/2015 Influenza Virus Vaccine, Quadrivalent, Split, Preservative Free 32027 Given 03/12/2014 Flu, Split Virus 3Yrs 46637 Given 03/24/2013 Flu, Split Virus 3Yrs 62780 Given 11/25/2012 Zostavax [id number] 20984 Given 02/27/2012 Flu, Split Virus 3Yrs [id number] 04474 Given 03/02/2011 Flu, Split Virus 3Yrs 87281 Given 03/21/2010 Flu, Split Virus 3Yrs 43867 Given 03/05/2009 Flu, Split Virus 3Yrs [id number] 60232 Given 04/02/2008 Flu, Split Virus 3Yrs [id number] 56747 Given 04/18/2007 Flu, Split Virus 3Yrs [id number] 76020 Given 04/10/2006 Flu, Split Virus 3Yrs 29239 Given 12/26/2005 Adacel or Boostrix, TDaP [id number] 22685 Given 03/25/2005 Flu, Split Virus 3Yrs 26471 Given 04/11/2003 Flu, Split Virus 3Yrs Vital Signs Date Vital Result Comment 09/20/2018 4:53pm BP Systolic 142 mmHg BP Diastolic 60 mmHg 09/11/2018 2:58pm BP Systolic 130 mmHg BP Diastolic 62 mmHg Weight 139.00 lb with shoes 06/07/2018 2:08pm BP Systolic 146 mmHg BP Diastolic 60 mmHg Heart Rate 80 /min O2 % BldC Oximetry 93 % Body Temperature 97.6 F 05/31/2018 2:50pm BP Systolic 140 mmHg BP Diastolic 72 mmHg Body Temperature 98.1 F Weight 138.00 lb with shoes 11/08/2017 8:43am BP Systolic 126 mmHg BP Diastolic 60 mmHg Heart Rate 78 /min O2 % BldC Oximetry 97 % Body Temperature 98.0 F Height 63.5 inches 5'3.50" Weight 141.00 lb BMI (Body Mass Index) 24.6 kg/m2 07/04/2017 11:16am BP Systolic 126 mmHg BP Diastolic 76 mmHg Body Temperature 97.9 F 12/22/2016 9:05am BP Systolic 142 mmHg BP Diastolic 68 mmHg Height 63 inches 5'3" Weight 132.00 lb BMI (Body Mass Index) 23.4 kg/m2 09/20/2016 1:06pm BP Systolic 142 mmHg BP Diastolic 64 mmHg Weight 133.00 lb 05/16/2016 2:03pm BP Systolic 176 mmHg BP Diastolic 72 mmHg Weight 128.00 lb Approx 06/14/2015 2:16pm BP Systolic 135 mmHg recheck ra BP Diastolic 65 mmHg recheck ra BP Systolic Recheck 180 mmHg BP Diastolic Recheck 70 mmHg Height 62.5 inches 5'2.50" Weight 123.00 lb BMI (Body Mass Index) 22.1 kg/m2 01/04/2015 4:13pm BP Systolic 152 mmHg BP Diastolic 72 mmHg Height 62.5 inches 5'2.50" Weight 130.00 lb BMI (Body Mass Index) 23.4 kg/m2 06/24/2014 1:05pm BP Systolic 158 mmHg BP Diastolic 70 mmHg Weight 130.00 lb shoes on 04/21/2014 1:30pm BP Systolic 120 mmHg BP Diastolic 82 mmHg Body Temperature 97.7 F Height 63.50 inches 5'3.50" Weight 129.00 lb BMI (Body Mass Index) 22.5 kg/m2 12/24/2013 1:05pm BP Systolic 130 mmHg BP Diastolic 64 mmHg Weight 130.00 lb 11/25/2013 11:06am BP Systolic 142 mmHg BP Diastolic 71 mmHg Heart Rate 81 /min Weight 132.00 lb 10/16/2013 1:04pm BP Systolic 158 mmHg BP Diastolic 78 mmHg Weight 131.00 lb 10/06/2013 1:56pm BP Systolic 160 mmHg BP Diastolic 78 mmHg 09/25/2013 1:20pm BP Systolic 150 mmHg BP Diastolic 80 mmHg Height 62.50 inches 5'2.50" Weight 129.00 lb BMI (Body Mass Index) 23.2 kg/m2 04/21/2013 2:46pm BP Systolic 164 mmHg BP Diastolic 70 mmHg Weight 131.00 lb w/shoes 02/05/2013 1:22pm BP Systolic 150 mmHg BP Diastolic 78 mmHg Body Temperature 98.0 F Weight 130.00 lb 11/25/2012 1:38pm BP Systolic 156 mmHg BP Diastolic 78 mmHg Height 63 inches 5'3" Weight 133.00 lb BMI (Body Mass Index) 23.6 kg/m2 02/27/2012 4:30pm BP Systolic 170 mmHg bp 159/80/. calims 125 at home today BP Diastolic 80 mmHg bp 159/80/. calims 125 at home today Body Temperature 97.9 F Weight 132.00 lb Last Menstrual Period 0 12/18/2011 1:25pm BP Systolic 174 mmHg BP Diastolic 80 mmHg Height 63.25 inches 5'3.25" Weight 134.00 lb BMI (Body Mass Index) 23.5 kg/m2 10/05/2010 1:37pm BP Systolic 200 mmHg BP Diastolic 82 mmHg BP Systolic Recheck 194 mmHg R arm sitting BP Diastolic Recheck 76 mmHg R arm sitting Weight 130.00 lb 06/21/2010 3:12pm BP Systolic 172 mmHg BP Diastolic 74 mmHg Respiratory Rate 16 /min not laboured Body Temperature 98.1 F Height 63.75 inches 5'3.75" Weight 129.00 lb BMI (Body Mass Index) 22.3 kg/m2 05/10/2009 5:18pm BP Systolic 148 mmHg BP Diastolic 90 mmHg Weight 130.00 lb did not take shoes off 03/12/2009 5:01pm BP Systolic 166 mmHg BP Diastolic 80 mmHg Heart Rate 76 /min reg Respiratory Rate 16 /min not laboured Body Temperature 98.0 F Weight 127.00 lb Last Menstrual Period 0 Peak Flow Meter 205 pre nebulizer; 200 post 06/17/2007 4:07pm BP Systolic 128 mmHg BP Diastolic 76 mmHg Weight 123.00 lb 11/09/2006 1:50pm BP Systolic 126 mmHg BP Diastolic 70 mmHg Body Temperature 98.7 F 11/01/2006 1:19pm BP Systolic 140 mmHg BP Diastolic 78 mmHg Body Temperature 98.4 F Weight 123.50 lb 10/27/2006 10:55am BP Systolic 130 mmHg BP Diastolic 76 mmHg Heart Rate 80 /min Respiratory Rate 16 /min Body Temperature 99.0 F Weight 123.00 lb 12/26/2005 4:12pm BP Systolic 140 mmHg BP Diastolic 80 mmHg Weight 127.00 lb BMI (Body Mass Index) 22.0 kg/m2 09/26/2005 4:18pm BP Systolic 140 mmHg BP Diastolic 72 mmHg Height 63.75 inches 5'3.75" Weight 129.00 lb BMI (Body Mass Index) 22.3 kg/m2 05/26/2005 3:35pm BP Systolic 138 mmHg BP Diastolic 84 mmHg Height 63.75 inches 5'3.75" 05/12/2005 4:39pm BP Systolic 178 mmHg BP Diastolic 88 mmHg BP Systolic Recheck 184 mmHg Rarm lying after 5 min in dark; 188/94 Larm BP Diastolic Recheck 90 mmHg Rarm lying after 5 min in dark; 188/94 Larm Heart Rate 72 /min reg Respiratory Rate 16 /min not laboured Height 63.75 inches 5'3.75" Weight 128.00 lb BMI (Body Mass Index) 22.1 kg/m2 Last Menstrual Period 0 03/06/2005 4:35pm BP Systolic 150 mmHg BP Diastolic 80 mmHg Body Temperature 97.9 F Height 63.75 inches 5'3.75" Weight 127.00 lb BMI (Body Mass Index) 22.0 kg/m2 01/02/2005 11:11am BP Systolic 130 mmHg BP Diastolic 80 mmHg Height 63.75 inches 5'3.75" Weight 124.00 lb BMI (Body Mass Index) 21.4 kg/m2 10/31/2004 4:49pm Body Temperature 97.7 F Height 63.75 inches 5'3.75" Weight 127.00 lb BMI (Body Mass Index) 22.0 kg/m2 09/19/2004 12:55pm BP Systolic 132 mmHg 121/69 at home BP Diastolic 70 mmHg 121/69 at home Height 63.75 inches 5'3.75" Weight 124.00 lb BMI (Body Mass Index) 21.4 kg/m2 03/22/2004 1:16pm BP Systolic 145 mmHg w/ her cuff BP Diastolic 72 mmHg w/ her cuff BP Systolic Recheck 140 mmHg R arm w/ our cuff; 150/80 Left arm BP Diastolic Recheck 76 mmHg R arm w/ our cuff; 150/80 Left arm 03/22/2004 12:57pm BP Systolic 118 mmHg BP Diastolic 62 mmHg Weight 126.00 lb 118 at home 12/15/2003 3:27pm BP Systolic 118 mmHg BP Diastolic 70 mmHg BP Systolic Recheck 150 mmHg R arm sitting BP Diastolic Recheck 78 mmHg R arm sitting Weight 123.00 lb 11/20/2003 11:54am BP Systolic 155 mmHg L arm w/ her cuff; 172/80 w/ our cuff BP Diastolic 81 mmHg L arm w/ her cuff; 172/80 w/ our cuff BP Systolic Recheck 170 mmHg R arm w/ our cuff; 164/81 w/ her cuff BP Diastolic Recheck 76 mmHg R arm w/ our cuff; 164/81 w/ her cuff Heart Rate 80 /min reg 11/20/2003 11:40am BP Systolic 130 mmHg BP Diastolic 80 mmHg 11/10/2003 4:02pm BP Systolic 130 mmHg BP Diastolic 80 mmHg BP Systolic Recheck 156 mmHg R arm sitting BP Diastolic Recheck 84 mmHg R arm sitting Heart Rate 76 /min reg Height 63.3 inches 5'3.30" Weight 122.00 lb BMI (Body Mass Index) 21.4 kg/m2 Results Test Date Facility Test Result H/L Range Note Laboratory test 05/31/2018 In House Hemoglobin A1c 5.5 1 finding Laboratory test 05/13/2018 [facility] TSH (Thyroid 2.55 N 0.34-5.60 finding [phone] Stim Horm) mcIU/mL CBC Auto Diff 05/13/2018 [facility] White Blood 8.8 10^3/uL N 3.5- 10.8 [phone] Count Red Blood Count 3.77 10^6/uL Low 4.00-5.40 Hemoglobin 12.4 g/dL N 12.0-16.0 Hematocrit 37 % N 35-47 Mean Corpuscular Volume 98 fL High 80-97 Mean Corpuscular Hemoglobin 33 pg High 27-31 Mean Corpuscular HGB Conc 34 g/dL N 31-36 Red Cell Distribution Width 14 % N 10.5-15 Platelet Count 480 10^3/uL High 150-450 Mean Platelet Volume 7.6 fL N 7.4-10.4 Abs Neutrophils 6.5 10^3/uL N 1.5-7.7 Abs Lymphocytes 1.3 10^3/uL N 1.0-4.8 Abs Monocytes 0.8 10^3/uL N 0-0.8 Abs Eosinophils 0.2 10^3/uL N 0-0.6 Abs Basophils 0.1 10^3/uL N 0-0.2 Abs Nucleated RBC 0 10^3/uL Granulocyte % 74.2 % Lymphocyte % 14.2 % Monocyte % 8.8 % Eosinophil % 1.8 % Basophil % 1.0 % Nucleated Red Blood Cells % 0.1 Comp Metabolic Panel 05/13/2018 [facility] Sodium 130 mmol/L Low 135- 145 [phone] Potassium 5.1 mmol/L High 3.5-5.0 Chloride 94 mmol/L Low 101-111 Co2 Carbon Dioxide 28 mmol/L N 22-32 Anion Gap 8 mmol/L N 2-11 Glucose 158 mg/dL High 70-100 Blood Urea Nitrogen 8 mg/dL N 6-24 Creatinine 0.58 mg/dL N 0.51-0.95 BUN/Creatinine Ratio 13.8 N 8-20 Calcium 10.1 mg/dL N 8.6-10.3 Total Protein 7.2 g/dL N 6.4-8.9 Albumin 4.4 g/dL N 3.2-5.2 Globulin 2.8 g/dL N 2-4 Albumin/Globulin Ratio 1.6 N 1-3 Total Bilirubin 0.30 mg/dL N 0.2-1.0 Alkaline Phosphatase 92 U/L N 34-104 Alt 35 U/L N 7-52 Ast 35 U/L N 13-39 Egfr Non- 104.3 >60 Egfr 126.2 >60 2 Laboratory test 04/08/2018 [facility] Cytology SEE RESULT 3 finding [phone] BELOW Laboratory test 01/30/2018 [facility] C Reactive 3.73 mg/L N <8.01 4 finding [phone] Protein Laboratory test 01/21/2018 [facility] C Reactive 9.63 mg/L High < 8.01 5 finding [phone] Protein Laboratory test 08/08/2017 [facility] C Reactive 1.75 mg/L N < 6 finding [phone] Protein 5.00 Laboratory test 05/15/2017 [facility] MRSA Screen SEE RESULT 7, 8 finding [phone] BELOW Protein 05/07/2017 [facility] Total 6.7 g/dL 6.3 - Electrophoresis [phone] Protein(Pep) 7.9 Albumin 3.2 g/dL Abnormal 3.4-4.7 Alpha-1 Globulin 0.4 g/dL Abnormal 0.1-0.3 Alpha-2 Globulin 1.2 g/dL Abnormal 0.6-1.0 Beta Globulin 0.9 g/dL 0.7-1.2 Gamma Globulin 1.1 g/dL 0.6-1.6 Albumin/Globulin Ratio 0.93 Impression See Comment 9 Laboratory test 05/07/2017 [facility] C Reactive 1.60 mg/L N < 5.00 10 finding [phone] Protein Ferritin 48.6 ng/mL N 11-307 11 Folic Acid (Folate) 12.59 ng/mL >3.99 12 Vitamin B12 > 1450 pg/mL High 180-914 13 Iron & Iron Binding Capacity 05/07/2017 [facility] Iron 100 g/dL N 50-212 [phone] Unsaturated Iron Binding 190 g/dL Total Iron Binding Capacity 290 g/dL N 250-450 % Iron Saturation 34 % N 15-55 CBC Auto Diff 05/07/2017 [facility] White Blood Count 8.9 10^3/uL N 3.5-10.8 [phone] Red Blood Count 3.37 10^6/uL Low 4.0-5.4 Hemoglobin 11.3 g/dL Low 12.0-16.0 Hematocrit 34 % Low 35-47 Mean Corpuscular Volume 99 fL High 80-97 Mean Corpuscular Hemoglobin 34 pg High 27-31 Mean Corpuscular HGB Conc 34 g/dL N 31-36 Red Cell Distribution Width 14 % N 10.5-15 Platelet Count 387 10^3/uL N 150-450 Mean Platelet Volume 8 um3 N 7.4-10.4 Abs Neutrophils 6.5 10^3/uL N 1.5-7.7 Abs Lymphocytes 1.1 10^3/uL N 1.0-4.8 Abs Monocytes 1.0 10^3/uL High 0-0.8 Abs Eosinophils 0.1 10^3/uL N 0-0.6 Abs Basophils 0.1 10^3/uL N 0-0.2 Abs Nucleated RBC 0.01 10^3/uL Granulocyte % 73.5 % N 38-83 Lymphocyte % 12.8 % Low 25-47 Monocyte % 10.8 % High 1-9 Eosinophil % 1.3 % N 0-6 Basophil % 1.6 % N 0-2 Nucleated Red Blood Cells % 0.1 Laboratory test finding 04/12/2017 [facility] Albumin 3.7 g/dL N 3.2- 5.2 [phone] Iron & Iron Binding Capacity 04/12/2017 [facility] Iron 113 g/dL N 50-212 [phone] Unsaturated Iron Binding 171 g/dL N Total Iron Binding Capacity 284 g/dL N 250-450 % Iron Saturation 40 % N 15-55 Laboratory test 04/12/2017 [facility] Ferritin 61.8 ng/mL N 11-307 finding [phone] CBC Auto Diff 04/12/2017 [facility] White Blood 8.6 10^3/uL N 3.5- 10.8 [phone] Count Red Blood Count 3.43 10^6/uL Low 4.0-5.4 Hemoglobin 11.2 g/dL Low 12.0-16.0 Hematocrit 34 % Low 35-47 Mean Corpuscular Volume 99 fL High 80-97 Mean Corpuscular Hemoglobin 33 pg High 27-31 Mean Corpuscular HGB Conc 33 g/dL N 31-36 Red Cell Distribution Width 14 % N 10.5-15 Platelet Count 391 10^3/uL N 150-450 Mean Platelet Volume 8 um3 N 7.4-10.4 Abs Neutrophils 6.4 10^3/uL N 1.5-7.7 Abs Lymphocytes 1.1 10^3/uL N 1.0-4.8 Abs Monocytes 0.9 10^3/uL High 0-0.8 Abs Eosinophils 0.1 10^3/uL N 0-0.6 Abs Basophils 0.1 10^3/uL N 0-0.2 Abs Nucleated RBC 0 10^3/uL N Granulocyte % 74.4 % N 38-83 Lymphocyte % 12.8 % Low 25-47 Monocyte % 10.7 % High 1-9 Eosinophil % 1.4 % N 0-6 Basophil % 0.7 % N 0-2 Nucleated Red Blood Cells % 0 N Comp Metabolic Panel 03/16/2017 [facility] Sodium 127 mmol/L Low 133- 145 [phone] Chloride 93 mmol/L Low 101-111 Co2 Carbon Dioxide 29 mmol/L N 22-32 Glucose 122 mg/dL High 70-100 Blood Urea Nitrogen 10 mg/dL N 6-24 Creatinine 0.70 mg/dL N 0.51-0.95 BUN/Creatinine Ratio 14.3 N 8-20 Calcium 9.3 mg/dL N 8.6-10.3 Total Protein 6.3 g/dL Low 6.4-8.9 Albumin 3.8 g/dL N 3.2-5.2 Globulin 2.5 g/dL N 2-4 Albumin/Globulin Ratio 1.5 N 1-3 Total Bilirubin 0.40 mg/dL N 0.2-1.0 Alkaline Phosphatase 78 U/L N 34-104 Alt 23 U/L N 7-52 Ast 28 U/L N 13-39 Egfr Non- 84.2 N >60 Egfr 108.3 N >60 14 Potassium 5.1 mmol/L High 3.5-5.0 Anion Gap 5 mmol/L N 2-11 Laboratory test 03/16/2017 [facility] C Reactive < 1.00 mg/L N < 5.00 15 finding [phone] Protein CBC Auto Diff 03/16/2017 [facility] White Blood 6.8 10^3/uL N 3.5- 10.8 [phone] Count Red Blood Count 3.39 10^6/uL Low 4.0-5.4 Hemoglobin 11.5 g/dL Low 12.0-16.0 Hematocrit 33 % Low 35-47 Mean Corpuscular Volume 98 fL High 80-97 Mean Corpuscular Hemoglobin 34 pg High 27-31 Mean Corpuscular HGB Conc 35 g/dL N 31-36 Red Cell Distribution Width 14 % N 10.5-15 Platelet Count 368 10^3/uL N 150-450 Mean Platelet Volume 8 um3 N 7.4-10.4 Abs Neutrophils 5.1 10^3/uL N 1.5-7.7 Abs Lymphocytes 0.9 10^3/uL Low 1.0-4.8 Abs Monocytes 0.7 10^3/uL N 0-0.8 Abs Eosinophils 0.1 10^3/uL N 0-0.6 Abs Basophils 0.1 10^3/uL N 0-0.2 Abs Nucleated RBC 0 10^3/uL N Granulocyte % 73.8 % N 38-83 Lymphocyte % 13.2 % Low 25-47 Monocyte % 9.5 % High 1-9 Eosinophil % 1.6 % N 0-6 Basophil % 1.9 % N 0-2 Nucleated Red Blood Cells % 0.1 N Basic Metabolic Panel 11/24/2016 [facility] Sodium 128 mmol/L Low 133 -145 [phone] Potassium 5.1 mmol/L High 3.5-5.0 Chloride 93 mmol/L Low 101-111 Co2 Carbon Dioxide 28 mmol/L N 22-32 Anion Gap 7 mmol/L N 2-11 Glucose 122 mg/dL High 70-100 Blood Urea Nitrogen 14 mg/dL N 6-24 Creatinine 0.62 mg/dL N 0.51-0.95 BUN/Creatinine Ratio 22.6 High 8-20 Calcium 9.7 mg/dL N 8.6-10.3 Egfr Non- 96.9 N >60 Egfr 124.6 N >60 16 Comp Metabolic Panel 10/03/2016 [facility] Sodium 127 mmol/L Low 133- 145 [phone] Potassium 5.1 mmol/L High 3.5-5.0 Chloride 94 mmol/L Low 101-111 Co2 Carbon Dioxide 28 mmol/L N 22-32 Anion Gap 5 mmol/L N 2-11 Glucose 93 mg/dL N 70-100 Blood Urea Nitrogen 9 mg/dL N 6-24 Creatinine 0.64 mg/dL N 0.51-0.95 BUN/Creatinine Ratio 14.1 N 8-20 Calcium 9.6 mg/dL N 8.6-10.3 Total Protein 7.4 g/dL N 6.4-8.9 Albumin 4.4 g/dL N 3.2-5.2 Globulin 3.0 g/dL N 2-4 Albumin/Globulin Ratio 1.5 N 1-3 Total Bilirubin 0.50 mg/dL N 0.2-1.0 Alkaline Phosphatase 66 U/L N 34-104 Alt 20 U/L N 7-52 Ast 23 U/L N 13-39 Egfr Non- 93.4 N >60 Egfr 120.1 N >60 17 Lipid Profile (Trig/Chol/HDL) 10/03/2016 [facility] Triglycerides 78 mg /dL N 18 [phone] Cholesterol 188 mg/dL N 19 HDL Cholesterol 95.0 mg/dL N 20 LDL Cholesterol 77 mg/dL N 21 Laboratory test 10/03/2016 [facility] Creatine 73 U/L N 10-223 finding [phone] Kinase(CK) Basic Metabolic 09/22/2016 [facility] Sodium 128 mmol/L Low 133-145 Panel [phone] Potassium 4.8 mmol/L N 3.5-5.0 Chloride 92 mmol/L Low 101-111 Co2 Carbon Dioxide 29 mmol/L N 22-32 Anion Gap 7 mmol/L N 2-11 Glucose 105 mg/dL High 70-100 Blood Urea Nitrogen 10 mg/dL N 6-24 Creatinine 0.73 mg/dL N 0.51-0.95 BUN/Creatinine Ratio 13.7 N 8-20 Calcium 9.9 mg/dL N 8.6-10.3 Egfr Non- 80.3 N >60 Egfr 103.2 N >60 22 Basic Metabolic Panel 09/19/2016 [facility] Sodium 130 mmol/L Low 133 -145 [phone] Potassium 5.0 mmol/L N 3.5-5.0 Chloride 95 mmol/L Low 101-111 Co2 Carbon Dioxide 30 mmol/L N 22-32 Anion Gap 5 mmol/L N 2-11 Glucose 113 mg/dL High 70-100 Blood Urea Nitrogen 10 mg/dL N 6-24 Creatinine 0.71 mg/dL N 0.51-0.95 BUN/Creatinine Ratio 14.1 N 8-20 Calcium 9.7 mg/dL N 8.6-10.3 Egfr Non- 82.9 N >60 Egfr 106.6 N >60 23 Basic Metabolic Panel 09/18/2016 [facility] Sodium 127 mmol/L Low 133 -145 24 [phone] Potassium 5.1 mmol/L High 3.5-5.0 Chloride 92 mmol/L Low 101-111 Co2 Carbon Dioxide 30 mmol/L N 22-32 Anion Gap 5 mmol/L N 2-11 Glucose 59 mg/dL Low 70-100 Blood Urea Nitrogen 11 mg/dL N 6-24 Creatinine 0.67 mg/dL N 0.51-0.95 BUN/Creatinine Ratio 16.4 N 8-20 Calcium 9.8 mg/dL N 8.6-10.3 Egfr Non- 88.6 N >60 Egfr 114.0 N >60 25 Laboratory test finding 09/12/2016 [facility] Inr/Protime 0.86 Low 0.89-1.11 [phone] Partial Thrombo Time PTT 32.0 seconds N 26.0-36.3 CBC Auto Diff 09/12/2016 [facility] White Blood 11.4 10^3/uL High 3.5 -10.8 [phone] Count Red Blood Count 3.91 10^6/uL Low 4.0-5.4 Hemoglobin 12.4 g/dL N 12.0-16.0 Hematocrit 37 % N 35-47 Mean Corpuscular Volume 94 fL N 80-97 Mean Corpuscular Hemoglobin 32 pg High 27-31 Mean Corpuscular HGB Conc 34 g/dL N 31-36 Red Cell Distribution Width 14 % N 10.5-15 Platelet Count 369 10^3/uL N 150-450 Mean Platelet Volume 7 um3 Low 7.4-10.4 Abs Neutrophils 9.3 10^3/uL High 1.5-7.7 Abs Lymphocytes 1.0 10^3/uL N 1.0-4.8 Abs Monocytes 0.8 10^3/uL N 0-0.8 Abs Eosinophils 0.1 10^3/uL N 0-0.6 Abs Basophils 0.2 10^3/uL N 0-0.2 Abs Nucleated RBC 0 10^3/uL N Granulocyte % 81.4 % N 38-83 Lymphocyte % 9.1 % Low 25-47 Monocyte % 7.3 % N 1-9 Eosinophil % 0.4 % N 0-6 Basophil % 1.8 % N 0-2 Nucleated Red Blood Cells % 0 N Laboratory test finding 09/12/2016 [facility] Lactic Acid 1.1 mmol/L N 0.5-2.0 26 [phone] Comp Metabolic Panel 09/12/2016 [facility] Potassium 3.8 mmol/L N 3.5 -5.0 [phone] Chloride 83 mmol/L Low 101-111 Co2 Carbon Dioxide 27 mmol/L N 22-32 Glucose 104 mg/dL High 70-100 Blood Urea Nitrogen 6 mg/dL N 6-24 Creatinine 0.53 mg/dL N 0.51-0.95 BUN/Creatinine Ratio 11.3 N 8-20 Calcium 9.8 mg/dL N 8.6-10.3 Total Protein 8.2 g/dL N 6.4-8.9 Albumin 4.6 g/dL N 3.2-5.2 Globulin 3.6 g/dL N 2-4 Albumin/Globulin Ratio 1.3 N 1-3 Total Bilirubin 0.60 mg/dL N 0.2-1.0 Alkaline Phosphatase 85 U/L N 34-104 Alt 31 U/L N 7-52 Ast 35 U/L N 13-39 Egfr Non- 116.1 N >60 Egfr 149.4 N >60 27 Sodium 119 mmol/L Low 133-145 28 Anion Gap 9 mmol/L N 2-11 Laboratory test 09/12/2016 [facility] TSH (Thyroid 1.22 mcIU/mL N 0.34-5.60 finding [phone] Stim Horm) Free T4 (Free Thyroxine) 1.15 ng/dL High 0.61-1.12 C Reactive Protein 2.29 mg/L N < 5.00 29 Erythrocyte Sed Rate 50 mm/Hr High 0-30 Urinalysis Profile 09/12/2016 [facility] Urine Color Yellow N [phone] Urine Appearance Clear N Urine Specific Ada 1.011 N 1.010-1.030 Urine pH 7.0 N 5-9 Urine Urobilinogen Negative N Negative Urine Ketones Trace Abnormal Negative Urine Protein Negative N Negative Urine Leukocytes Negative N Negative Urine Blood Negative N Negative Urine Nitrite Negative N Negative Urine Bilirubin Negative N Negative Urine Glucose Negative N Negative Laboratory test 09/12/2016 [facility] Blood Culture SEE RESULT BELOW 30 finding [phone] Osmolality Serum 250 mOsm/kg Low 275 - 295 31 Laboratory test 07/03/2016 [facility] Wound SEE RESULT 32 finding [phone] Culture/Sensi BELOW Laboratory test 06/13/2016 [facility] Epifix 18 SEE RESULTS 33, 34 finding [phone] BELO <SEE NOTE> Laboratory test 06/07/2016 [facility] Epifix 18 SEE RESULTS 35 finding [phone] BELO <SEE NOTE> CBC Auto Diff 02/21/2016 [facility] White Blood Count 7.2 10^3/uL N 3.5-5 [phone] 0.8 Red Blood Count 3.48 10^6/uL Low 4.0-5.4 Hemoglobin 10.9 g/dL Low 12.0-16.0 Hematocrit 33 % Low 35-47 Mean Corpuscular Volume 95 fL N 80-97 Mean Corpuscular Hemoglobin 31 pg N 27-31 Mean Corpuscular HGB Conc 33 g/dL N 31-36 Red Cell Distribution Width 14 % N 10.5-15 Platelet Count 416 10^3/uL N 150-450 Mean Platelet Volume 8 um3 N 7.4-10.4 Abs Neutrophils 4.8 10^3/uL N 1.5-7.7 Abs Lymphocytes 1.0 10^3/uL N 1.0-4.8 Abs Monocytes 0.9 10^3/uL High 0-0.8 Abs Eosinophils 0.3 10^3/uL N 0-0.6 Abs Basophils 0.1 10^3/uL N 0-0.2 Abs Nucleated RBC 0.01 10^3/uL N Granulocyte % 67.4 % N 38-83 Lymphocyte % 14.2 % Low 25-47 Monocyte % 12.7 % High 1-9 Eosinophil % 4.6 % N 0-6 Basophil % 1.1 % N 0-2 Nucleated Red Blood Cells % 0.2 N Comp Metabolic Panel 02/21/2016 [facility] Sodium 133 mmol/L N 133- 145 [phone] Potassium 4.9 mmol/L N 3.5-5.0 Chloride 99 mmol/L Low 101-111 Co2 Carbon Dioxide 27 mmol/L N 22-32 Anion Gap 7 mmol/L N 2-11 Glucose 117 mg/dL High 70-100 Blood Urea Nitrogen 10 mg/dL N 6-24 Creatinine 0.68 mg/dL N 0.51-0.95 BUN/Creatinine Ratio 14.7 N 8-20 Calcium 9.3 mg/dL N 8.6-10.3 Total Protein 6.7 g/dL N 6.4-8.9 Albumin 4.1 g/dL N 3.2-5.2 Globulin 2.6 g/dL N 2-4 Albumin/Globulin Ratio 1.6 N 1-3 Total Bilirubin 0.30 mg/dL N 0.2-1.0 Alkaline Phosphatase 80 U/L N 34-104 Alt 12 U/L N 7-52 Ast 19 U/L N 13-39 Egfr Non- 87.4 N >60 Egfr 112.4 N >60 36 Laboratory test finding 02/21/2016 [facility] Vancomycin Trough 14.5 g/mL N [phone] C Reactive Protein 6.18 mg/L High < 5.00 37 TSH (Thyroid Stim Horm) 3.78 mcIU/mL N 0.34-5.60 Laboratory test 01/10/2016 [facility] Wound Culture/Sensi SEE RESULT 38, 39 finding [phone] BELOW Tissue (BX) Culture & Gram St SEE RESULT BELOW 40 Anaerobic Culture SEE RESULT BELOW 41 Acid Fast Culture & Smear SEE RESULT BELOW 42 Fungal Cult Other Sources SEE RESULT BELOW 43 Laboratory test 01/10/2016 [facility] Mycobacterial See Comment N 44 finding [phone] Culture Basic Metabolic 01/10/2016 [facility] Sodium 131 mmol/L Low 133-1 Panel [phone] Potassium 4.2 mmol/L N 3.5-5.0 Chloride 94 mmol/L Low 101-111 Co2 Carbon Dioxide 30 mmol/L N 22-32 Anion Gap 7 mmol/L N 2-11 Glucose 100 mg/dL N 70-100 Blood Urea Nitrogen 9 mg/dL N 6-24 Creatinine 0.62 mg/dL N 0.51-0.95 BUN/Creatinine Ratio 14.5 N 8-20 Calcium 9.9 mg/dL N 8.6-10.3 Egfr Non- 97.2 N >60 Egfr 125.0 N >60 45 CBC Auto Diff 01/10/2016 [facility] White Blood Count 9.0 10^3/uL N 3.5-10.8 [phone] Red Blood Count 4.07 10^6/uL N 4.0-5.4 Hemoglobin 13.2 g/dL N 12.0-16.0 Hematocrit 39 % N 35-47 Mean Corpuscular Volume 95 fL N 80-97 Mean Corpuscular Hemoglobin 32 pg High 27-31 Mean Corpuscular HGB Conc 34 g/dL N 31-36 Red Cell Distribution Width 13 % N 10.5-15 Platelet Count 533 10^3/uL High 150-450 Mean Platelet Volume 7 um3 Low 7.4-10.4 Abs Neutrophils 6.9 10^3/uL N 1.5-7.7 Abs Lymphocytes 0.9 10^3/uL Low 1.0-4.8 Abs Monocytes 0.8 10^3/uL N 0-0.8 Abs Eosinophils 0.2 10^3/uL N 0-0.6 Abs Basophils 0.2 10^3/uL N 0-0.2 Abs Nucleated RBC 0.01 10^3/uL N Granulocyte % 76.9 % N 38-83 Lymphocyte % 9.8 % Low 25-47 Monocyte % 8.7 % N 1-9 Eosinophil % 2.4 % N 0-6 Basophil % 2.2 % High 0-2 Nucleated Red Blood Cells % 0.1 N Laboratory test 01/10/2016 [facility] C Reactive 2.90 mg/L N < 5.00 46 finding [phone] Protein CBC Auto Diff 11/24/2015 [facility] White Blood 5.4 10^3/uL N 3.5- 10.8 [phone] Count Red Blood Count 3.66 10^6/uL Low 4.0-5.4 Hemoglobin 11.9 g/dL Low 12.0-16.0 Hematocrit 35 % N 35-47 Mean Corpuscular Volume 96 fL N 80-97 Mean Corpuscular Hemoglobin 33 pg High 27-31 Mean Corpuscular HGB Conc 34 g/dL N 31-36 Red Cell Distribution Width 13 % N 10.5-15 Platelet Count 425 10^3/uL N 150-450 Mean Platelet Volume 8 um3 N 7.4-10.4 Abs Neutrophils 3.4 10^3/uL N 1.5-7.7 Abs Lymphocytes 1.2 10^3/uL N 1.0-4.8 Abs Monocytes 0.6 10^3/uL N 0-0.8 Abs Eosinophils 0.2 10^3/uL N 0-0.6 Abs Basophils 0.1 10^3/uL N 0-0.2 Abs Nucleated RBC 0.01 10^3/uL N Granulocyte % 63.6 % N 38-83 Lymphocyte % 21.3 % Low 25-47 Monocyte % 11.1 % High 1-9 Eosinophil % 2.8 % N 0-6 Basophil % 1.2 % N 0-2 Nucleated Red Blood Cells % 0.1 N Comp Metabolic Panel 11/24/2015 [facility] Sodium 127 mmol/L Low 133- 145 [phone] Potassium 4.7 mmol/L N 3.5-5.0 Chloride 93 mmol/L Low 101-111 Co2 Carbon Dioxide 28 mmol/L N 22-32 Anion Gap 6 mmol/L N 2-11 Glucose 84 mg/dL N 70-100 Blood Urea Nitrogen 6 mg/dL N 6-24 Creatinine 0.52 mg/dL N 0.51-0.95 BUN/Creatinine Ratio 11.5 N 8-20 Calcium 9.2 mg/dL N 8.6-10.3 Total Protein 6.6 g/dL N 6.4-8.9 Albumin 4.1 g/dL N 3.2-5.2 Globulin 2.5 g/dL N 2-4 Albumin/Globulin Ratio 1.6 N 1-3 Total Bilirubin 0.30 mg/dL N 0.2-1.0 Alkaline Phosphatase 79 U/L N 34-104 Alt 20 U/L N 7-52 Ast 30 U/L N 13-39 Egfr Non- 119.1 N >60 Egfr 153.2 N >60 47 Lipid Profile (Trig/Chol/HDL) 11/24/2015 [facility] Triglycerides 67 mg /dL N 48 [phone] Cholesterol 158 mg/dL N 49 HDL Cholesterol 87.6 mg/dL N 50 LDL Cholesterol 57 mg/dL N 51 Laboratory test finding 11/24/2015 [facility] Magnesium 2.0 mg/dL N 1.9-2.7 [phone] Creatine Kinase(CK) 192 U/L N 10-223 Laboratory test 10/29/2014 [facility] TSH (Thyroid 1.82 N 0.34-5.60 finding [phone] Stim Horm) ?IU/mL Laboratory test 07/14/2014 [facility] TSH (Thyroid 1.08 IU/mL N 0.34- 5.60 52, 53 finding [phone] Stimulating Horm) Free T3 3.50 pg/mL N 2.5-3.9 54 Free T4 0.87 ng/mL N 0.61-1.12 55 Comp Metabolic Panel 07/14/2014 [facility] Sodium 133 mmol/L N 133- 145 [phone] Potassium 4.9 mmol/L N 3.5-5.0 Chloride 97 mmol/L Low 101-111 Co2 Carbon Dioxide 29 mmol/L N 22-32 Anion Gap 7 mmol/L N 2-11 Glucose 86 mg/dL N 70-100 Blood Urea Nitrogen 7 mg/dL N 6-24 Creatinine 0.63 mg/dL N 0.51-0.95 BUN/Creatinine Ratio 11.1 N 8-20 Calcium 9.7 mg/dL N 8.6-10.3 Total Protein 7.1 g/dL N 6.4-8.9 Albumin 4.7 g/dL N 3.2-5.2 Globulin 2.4 g/dL N 2-4 Albumin/Globulin Ratio 2.0 N 1-3 Total Bilirubin 0.40 mg/dL N 0.2-1.0 Alkaline Phosphatase 59 U/L N 34-104 Alt 19 U/L N 7-52 Ast 30 U/L N 13-39 Egfr Non- 95.8 N >60 Egfr 123.1 N >60 56 CBC Auto Diff 07/14/2014 [facility] White Blood Count 5.7 10^3/uL N 4.8-10.8 [phone] Red Blood Count 4.11 10^6/uL N 4.0-5.4 Hemoglobin 13.7 g/dL N 12.0-16.0 Hematocrit 41 % N 35-47 Mean Corpuscular Volume 99 fL High 80-97 Mean Corpuscular Hemoglobin 33 pg High 27-31 Mean Corpuscular HGB Conc 34 g/dL N 31-36 Red Cell Distribution Width 13 % N 10.5-15 Platelet Count 361 10^3/uL N 150-450 Mean Platelet Volume 7 um3 Low 7.4-10.4 Abs Neutrophils 3.7 10^3/uL N 1.5-7.7 Abs Lymphocytes 0.9 10^3/uL Low 1.0-4.8 Abs Monocytes 0.8 10^3/uL N 0-0.8 Abs Eosinophils 0.3 10^3/uL N 0-0.6 Abs Basophils 0.1 10^3/uL N 0-0.2 Abs Nucleated RBC 0.01 10^3/uL N Granulocyte % 65.0 % N 38-83 Lymphocyte % 15.4 % Low 25-47 Monocyte % 13.6 % High 1-9 Eosinophil % 4.5 % N 0-6 Basophil % 1.5 % N 0-2 Nucleated Red Blood Cells % 0.2 N Lipid Profile (Trig/Chol/HDL) 07/14/2014 [facility] Triglycerides 61 mg /dL N 57 [phone] Cholesterol 208 mg/dL N 58 HDL Cholesterol 111.3 mg/dL N 59 LDL Cholesterol 85 mg/dL N 60 Vitamin D, 25 07/14/2014 [facility] 25-Hydroxy Vitamin D2 <4.0 ng/mL N Hydroxy [phone] 25-Hydroxy Vitamin D3 11 ng/mL N 25-Hydroxy Vitamin D Total 11 ng/mL Abnormal 61 Creatinine 05/18/2014 [facility] Creatinine 0.70 mg/dL N 0.51-0.95 [phone] Egfr Non- 85.1 N >60 Egfr 109.4 N >60 62 Laboratory test 05/18/2014 [facility] Blood Urea Nitrogen 9 mg/dL N 6 -24 finding [phone] Laboratory test 05/18/2014 [facility] Creatine Kinase 74 U/L N 10- 223 finding [phone] Lipid Profile 05/18/2014 [facility] Triglycerides 100 mg/dL N 63 (Trig/Chol/HDL) [phone] Cholesterol 199 mg/dL N 64 HDL Cholesterol 92.6 mg/dL N 65 LDL Cholesterol 86 mg/dL N 66 Comp Metabolic Panel 05/18/2014 [facility] Sodium 130 mmol/L Low 133- 145 [phone] Potassium 5.1 mmol/L High 3.5-5.0 Chloride 97 mmol/L Low 101-111 Co2 Carbon Dioxide 27 mmol/L N 22-32 Anion Gap 6 mmol/L N 2-11 Glucose 85 mg/dL N 70-100 Blood Urea Nitrogen 9 mg/dL N 6-24 Creatinine 0.71 mg/dL N 0.51-0.95 BUN/Creatinine Ratio 12.7 N 8-20 Calcium 9.4 mg/dL N 8.6-10.3 Total Protein 7.1 g/dL N 6.4-8.9 Albumin 4.5 g/dL N 3.2-5.2 Globulin 2.6 g/dL N 2-4 Albumin/Globulin Ratio 1.7 N 1-3 Total Bilirubin 0.40 mg/dL N 0.2-1.0 Alkaline Phosphatase 64 U/L N 34-104 Alt 12 U/L N 7-52 Ast 21 U/L N 13-39 Egfr Non- 83.7 N >60 Egfr 107.6 N >60 67 CBC Auto Diff 05/18/2014 [facility] White Blood Count 8.5 10^3/uL N 4.8-10.8 [phone] Red Blood Count 4.13 10^6/uL N 4.0-5.4 Hemoglobin 13.8 g/dL N 12.0-16.0 Hematocrit 40 % N 35-47 Mean Corpuscular Volume 96 fL N 80-97 Mean Corpuscular Hemoglobin 33 pg High 27-31 Mean Corpuscular HGB Conc 35 g/dL N 31-36 Red Cell Distribution Width 13 % N 10.5-15 Platelet Count 379 10^3/uL N 150-450 Mean Platelet Volume 7 um3 Low 7.4-10.4 Abs Neutrophils 6.1 10^3/uL N 1.5-7.7 Abs Lymphocytes 1.2 10^3/uL N 1.0-4.8 Abs Monocytes 0.9 10^3/uL High 0-0.8 Abs Eosinophils 0.2 10^3/uL N 0-0.6 Abs Basophils 0.1 10^3/uL N 0-0.2 Abs Nucleated RBC 0.01 10^3/uL N Granulocyte % 71.3 % N 38-83 Lymphocyte % 13.7 % Low 25-47 Monocyte % 11.1 % High 1-9 Eosinophil % 2.9 % N 0-6 Basophil % 1.0 % N 0-2 Nucleated Red Blood Cells % 0.1 N Urine Micro Inhouse 04/21/2014 In House [facility]a WBC - Ua RBC - Ua Casts - Ua Epi 10-15 Ua Other - Ua Glucose - Ua Bilirubin - Ua Ketones - Ua Specific Ada 1.005 Ua Blood - Ua PH 6.0 Ua Protein - Ua Urobilinogen - Ua Nitrite - Ua Leukocytes - Basic Metabolic Panel 12/11/2013 [facility] Sodium 130 mmol/L Low 133 -145 [phone] Potassium 4.6 mmol/L N 3.7-5.6 Chloride 96 mmol/L Low 101-111 Co2 Carbon Dioxide 27 mmol/L N 22-32 Anion Gap 7 mmol/L N 2-11 Glucose 92 mg/dL N 70-100 Blood Urea Nitrogen 10 mg/dL N 6-24 Creatinine 0.72 mg/dL N 0.51-0.95 BUN/Creatinine Ratio 13.9 N 8-20 Calcium 9.5 mg/dL N 8.6-10.3 Egfr Non- 82.3 N >60 Egfr 105.9 N >60 68 CBC No Diff 12/11/2013 [facility] White Blood Count 8.2 10^3/uL N 4.8 -10.8 [phone] Red Blood Count 3.75 10^6/uL Low 4.0-5.4 Hemoglobin 12.6 g/dL N 12.0-16.0 Hematocrit 37 % N 35-47 Mean Corpuscular Volume 98 fL High 80-97 Mean Corpuscular Hemoglobin 34 pg High 27-31 Mean Corpuscular HGB Conc 34 g/dL N 31-36 Red Cell Distribution Width 13 % N 10.5-15 Platelet Count 326 10^3/uL N 150-450 Mean Platelet Volume 7 um3 Low 7.4-10.4 Comp Metabolic Panel 10/22/2013 [facility] Sodium 134 mmol/L 133- 145 [phone] Potassium 5.0 mmol/L 3.7-5.6 Chloride 98 mmol/L Low 101-111 Co2 Carbon Dioxide 29 mmol/L 22-32 Anion Gap 7 mmol/L 2-11 Glucose 96 mg/dL 70-100 Blood Urea Nitrogen 13 mg/dL 6-24 Creatinine 0.77 mg/dL 0.51-0.95 BUN/Creatinine Ratio 16.9 8-20 Calcium 9.7 mg/dL 8.6-10.3 Total Protein 7.5 g/dL 6.4-8.9 Albumin 4.5 g/dL 3.2-5.2 Globulin 3.0 g/dL 2-4 Albumin/Globulin Ratio 1.5 1-3 Total Bilirubin 0.40 mg/dL 0.2-1.0 Alkaline Phosphatase 78 U/L 34-104 Alt 15 U/L 7-52 Ast 24 U/L 13-39 Egfr Non- 76.2 >60 Egfr 98.0 >60 69 Lipid Profile (Trig/Chol/HDL) 10/22/2013 [facility] Triglycerides 81 mg /dL 70 [phone] Cholesterol 204 mg/dL 71 HDL Cholesterol 94.3 mg/dL 72 LDL Cholesterol 94 mg/dL 73 Laboratory test 10/22/2013 [facility] Creatine Kinase 100 U/L 10- 223 74 finding [phone] Basic Metabolic 04/17/2013 [facility] Sodium 134 mmol/L 133-145 Panel [phone] Potassium 4.5 mmol/L 3.5-5.0 Chloride 98 mmol/L Low 101-111 Co2 Carbon Dioxide 28.0 mmol/L 22-32 Anion Gap 8.0 mmol/L 2-11 Glucose 137 mg/dL High 70-100 Blood Urea Nitrogen 10 mg/dL 6-24 Creatinine 0.60 mg/dL 0.50-1.40 BUN/Creatinine Ratio 16.7 8-20 Calcium 9.7 mg/dL 8.1-9.9 Egfr Non- 102.0 >60 Egfr 131.1 >60 75 Comp Metabolic Panel 03/10/2013 [facility] Sodium 133 mmol/L 133- 145 [phone] Potassium 5.1 mmol/L High 3.5-5.0 Chloride 98 mmol/L Low 101-111 Co2 Carbon Dioxide 28.0 mmol/L 22-32 Anion Gap 7.0 mmol/L 2-11 Glucose 96 mg/dL 70-100 Blood Urea Nitrogen 9 mg/dL 6-24 Creatinine 0.70 mg/dL 0.50-1.40 BUN/Creatinine Ratio 12.9 8-20 Calcium 9.7 mg/dL 8.1-9.9 Total Protein 6.8 g/dL 6.2-8.1 Albumin 4.4 g/dL 3.2-5.2 Globulin 2.4 g/dL 2-4 Albumin/Globulin Ratio 1.8 1-3 Total Bilirubin 0.7 mg/dL 0.4-1.5 Alkaline Phosphatase 59 U/L 30-110 Alt 16 U/L 14-54 Ast 25 U/L 12-42 Egfr Non- 85.4 >60 Egfr 109.8 >60 76 Lipid Profile 03/10/2013 [facility] Triglycerides 53 mg/dL 40-200 (Trig/Chol/HDL) [phone] Cholesterol 195 mg/dL Less than 200 HDL Cholesterol 108 mg/dL High 40-60 77 Cholesterol/HDL Ratio 1.8 Average 1-4.44 LDL Cholesterol 76.4 Less Than 100 78 Laboratory test 03/10/2013 [facility] Creatine Kinase 95 U/L 0-200 79 finding [phone] Surgical 02/24/2013 [facility] S RUN DATE: 80 Pathology [phone] 02/25/ <SEE NOTE> Laboratory test 11/26/2012 [facility] TSH (Thyroid 1.95 0.34-5.60 finding [phone] Stimulating Horm) miu/mL Hepatitis C Antibody Nonreactive Nonreactive Laboratory test 10/15/2012 [facility] Creatine Kinase 103 U/L 0-200 81 finding [phone] Lipid Profile 10/15/2012 [facility] Triglycerides 127 mg/dL 40-200 (Trig/Chol/HDL) [phone] Cholesterol 237 mg/dL High Less than 200 HDL Cholesterol 102 mg/dL High 40-60 82 Cholesterol/HDL Ratio 2.3 Average 1-4.44 LDL Cholesterol 109.6 mg/dL High Less Than 100 83 Comp Metabolic Panel 10/15/2012 [facility] Sodium 135 mmol/L 133- 145 [phone] Potassium 4.7 mmol/L 3.5-5.0 Chloride 100 mmol/L Low 101-111 Co2 Carbon Dioxide 27.0 mmol/L 22-32 Anion Gap 8.0 mmol/L 2-11 Glucose 96 mg/dL 70-100 Blood Urea Nitrogen 6 mg/dL 6-24 Creatinine 0.50 mg/dL 0.50-1.40 BUN/Creatinine Ratio 12.0 8-20 Calcium 9.5 mg/dL 8.1-9.9 Total Protein 6.8 g/dL 6.2-8.1 Albumin 3.9 g/dL 3.2-5.2 Globulin 2.9 g/dL 2-4 Albumin/Globulin Ratio 1.3 1-3 Total Bilirubin 0.6 mg/dL 0.4-1.5 Alkaline Phosphatase 60 U/L 30-110 Alt 25 U/L 14-54 Ast 32 U/L 12-42 Egfr Non- 125.9 >60 Egfr 161.9 >60 84 Laboratory test finding 03/11/2012 [facility] Creatine Kinase 83 U/L 0-200 [phone] Lipid Profile 03/11/2012 [facility] Triglycerides 56 mg/dL 40-200 (Trig/Chol/HDL) [phone] Cholesterol 204 mg/dL High Less than 200 85 HDL Cholesterol 113 mg/dL High 40-60 86 Cholesterol/HDL Ratio 1.8 AVERAGE 1-4.44 LDL Cholesterol 79.8 mg/dL Less Than 100 Comp Metabolic Panel 03/11/2012 [facility] Sodium 136 mmol/L 133- 145 [phone] Potassium 5.0 mmol/L 3.5-5.0 Chloride 100 mmol/L Low 101-111 Co2 Carbon Dioxide 30.0 mmol/L 22-32 Anion Gap 6.0 mmol/L 2-11 Glucose 105 mg/dL High 70-100 Blood Urea Nitrogen 7 mg/dL 6-24 Creatinine 0.70 mg/dL 0.50-1.40 BUN/Creatinine Ratio 10.0 8-20 Calcium 10.0 mg/dL High 8.1-9.9 Total Protein 6.9 GM/DL 6.2-8.1 Albumin 4.5 GM/DL 3.6-5.4 Globulin 2.4 GM/DL 2-4 Albumin/Globulin Ratio 1.9 1-3 Total Bilirubin 0.7 mg/dL 0.1-1.0 87 Alkaline Phosphatase 86 U/L 30-110 Alt 22 U/L 14-54 Ast 30 U/L 12-42 Egfr Non- 85.6 >60 Egfr 110.1 >60 88 Laboratory test 12/11/2011 [facility] CPK (Creatine 98 U/L 0-170 finding [phone] Kinase) TSH 1.79 MIU/ML 0.34-5.60 Lipid Profile 12/11/2011 [facility] Triglyceride 67 mg/dL 40-200 (Trig/Chol/HDL) [phone] Cholesterol 186 mg/dL Less Than 200 89 High Density Lipoprotein 108 mg/dL High 40-60 90 Cholesterol/HDL Ratio 1.72 AVERAGE 1-4.44 Low Density Lipoprotein 65 mg/dL Less Than 100 91 Comp Metabolic Panel 12/11/2011 [facility] Sodium 134 mmol/L Low 135- 145 [phone] Potassium 5.1 mmol/L High 3.5-5.0 Chloride 97 mmol/L Low 101-111 Co2 (Carbon Dioxide) 27.0 mmol/L 22-32 Anion Gap 10.0 mmol/L 2-11 92 Glucose 92 mg/dL 70-100 BUN 11 mg/dL 6-24 Creatinine 0.6 mg/dL 0.50-1.40 One Over Creatinine 1.66 BUN/Creatinine Ratio 18.3 8-20 Calcium 9.7 mg/dL 8.1-9.9 Total Protein 7.1 GM/DL 6.2-8.1 Albumin 4.3 GM/DL 3.6-5.4 Globulin 2.8 GM/DL 2-4 Albumin/Globulin Ratio 1.5 1-3 Bilirubin Total 0.8 mg/dL 0.4-1.5 93 Alkaline Phosphatase 104 U/L 30-110 Alt (SGPT) 16 U/L 14-54 Ast (Sgot) 29 U/L 12-42 eGFR Non- 102.3 > 60 eGFR 131.6 > 60 94 Laboratory test 10/05/2011 [facility] CPK (Creatine 110 U/L 0-170 finding [phone] Kinase) Lipid Profile 10/05/2011 [facility] Triglyceride 66 mg/dL 40-200 (Trig/Chol/HDL) [phone] Cholesterol 261 mg/dL High Less Than 200 95 High Density Lipoprotein 132 mg/dL High 40-60 96 Cholesterol/HDL Ratio 1.98 AVERAGE 1-4.44 Low Density Lipoprotein 116 mg/dL High Less Than 100 97 Comp Metabolic Panel 10/05/2011 [facility] Sodium 133 mmol/L Low 135- 145 [phone] Potassium 4.7 mmol/L 3.5-5.0 Chloride 100 mmol/L Low 101-111 Co2 (Carbon Dioxide) 27.0 mmol/L 22-32 Anion Gap 6.0 mmol/L 2-11 98 Glucose 85 mg/dL 70-100 BUN 6 mg/dL 6-24 Creatinine 0.6 mg/dL 0.50-1.40 One Over Creatinine 1.66 BUN/Creatinine Ratio 10.0 8-20 Calcium 9.2 mg/dL 8.1-9.9 Total Protein 7.0 GM/DL 6.2-8.1 Albumin 4.4 GM/DL 3.6-5.4 Globulin 2.6 GM/DL 2-4 Albumin/Globulin Ratio 1.7 1-3 Bilirubin Total 0.6 mg/dL 0.4-1.5 99 Alkaline Phosphatase 67 U/L 30-110 Alt (SGPT) 32 U/L 14-54 Ast (Sgot) 37 U/L 12-42 eGFR Non- 102.3 > 60 eGFR 131.6 > 60 100 Manual Differential 10/05/2011 [facility] Polysegmented Neutrophil 44 % 38-83 [phone] Lymphocyte 34 % 25-47 Monocyte 8 % 0-13 Eosinophil 12 % High 0-6 Basophil 1 % 0-2 Atypical Lymph 1 % 0-6 Absolute Neutrophil Count 2.10 Macrocytosis SLIGHT CBC Auto Diff 10/05/2011 [facility] White Blood Count 4.8 CUMM 4.8- 10.8 [phone] Red Cell Count 3.73 CUMM Low 4.2-5.4 Hemoglobin 13.1 g/dL 12.0-16.0 Hematocrit 38 % 35-47 Mean Corpuscular Volume 101 um3 High 79-97 Mean Corpuscular Hemoglob 35 pg High 27-31 Mean Corpuscular HGB Cone 35 g/dL 32-36 Redcell Distribution WDTH 14 % 10.5-15 Platelet Count 305 CUMM 150-450 Mean Platelet Volume 7.9 um3 7.4-10.4 101 Laboratory test 10/05/2011 [facility] TSH 4.19 MIU/ML 0.34-5.60 finding [phone] Laboratory test 04/27/2011 [facility] CPK (Creatine 105 U/L 0-170 finding [phone] Kinase) TSH 3.05 MIU/ML 0.34-5.60 Lipid Profile 04/27/2011 [facility] Triglyceride 94 mg/dL 40-200 (Trig/Chol/HDL) [phone] Cholesterol 207 mg/dL High Less Than 200 102 High Density Lipoprotein 123 mg/dL High 40-60 103 Cholesterol/HDL Ratio 1.68 AVERAGE 1-4.44 Low Density Lipoprotein 65 mg/dL Less Than 100 104 Comp Metabolic Panel 04/27/2011 [facility] Sodium 136 mmol/L 135- 145 [phone] Potassium 4.5 mmol/L 3.5-5.0 Chloride 102 mmol/L 101-111 Co2 (Carbon Dioxide) 26.0 mmol/L 22-32 Anion Gap 8.0 mmol/L 2-11 105 Glucose 92 mg/dL 70-100 BUN 5 mg/dL Low 6-24 Creatinine 0.6 mg/dL 0.50-1.40 One Over Creatinine 1.66 BUN/Creatinine Ratio 8.3 8-20 Calcium 9.6 mg/dL 8.1-9.9 Total Protein 7.8 GM/DL 6.2-8.1 Albumin 4.5 GM/DL 3.6-5.4 Globulin 3.3 GM/DL 2-4 Albumin/Globulin Ratio 1.4 1-3 Bilirubin Total 0.6 mg/dL 0.4-1.5 106 Alkaline Phosphatase 71 U/L 30-110 Alt (SGPT) 25 U/L 14-54 Ast (Sgot) 35 U/L 12-42 eGFR Non- 102.7 > 60 eGFR 132.0 > 60 107 Laboratory test finding 05/30/2010 [facility] TSH 1.59 MIU/ML 0.34- 5.60 [phone] Comp Metabolic Panel 05/30/2010 [facility] Sodium 137 mmol/L 135- 145 [phone] Potassium 4.9 mmol/L 3.5-5.0 Chloride 99 mmol/L Low 101-111 Co2 (Carbon Dioxide) 30.0 mmol/L 22-32 Anion Gap 8.0 mmol/L 2-11 108 Glucose 86 mg/dL 70-100 BUN 6 mg/dL 6-24 Creatinine 0.70 mg/dL 0.50-1.40 One Over Creatinine 1.40 BUN/Creatinine Ratio 8.6 8-20 Calcium 9.4 mg/dL 8.1-9.9 Total Protein 6.9 GM/DL 6.2-8.1 Albumin 4.4 GM/DL 3.6-5.4 Globulin 2.5 GM/DL 2-4 Albumin/Globulin Ratio 1.8 1-3 Bilirubin Total 0.6 mg/dL 0.4-1.5 109 Alkaline Phosphatase 58 U/L 30-110 Alt (SGPT) 23 U/L 14-54 Ast (Sgot) 32 U/L 12-42 eGFR Non- 91.7 > 60 eGFR 110.9 > 60 110 Lipid Profile 05/30/2010 [facility] Triglyceride 122 mg/dL 40-200 (Trig/Chol/HDL) [phone] Cholesterol 209 mg/dL High Less Than 200 111 High Density Lipoprotein 107 mg/dL High 40-60 112 Cholesterol/HDL Ratio 1.95 AVERAGE 1-4.44 Low Density Lipoprotein 78 mg/dL Less Than 100 113 Laboratory test 05/30/2010 [facility] CPK (Creatine 100 U/L 0-170 finding [phone] Kinase) CBC With Electronic 05/30/2010 [facility] White Blood Count 4.9 CUMM 4.8-10.8 Diff [phone] Red Cell Count 3.87 CUMM Low 4.2-5.4 Hemoglobin 13.0 g/dL 12.0-16.0 Hematocrit 38 % 35-47 Mean Corpuscular Volume 99 um3 High 79-97 Mean Corpuscular Hemoglob 34 pg High 27-31 Mean Corpuscular HGB Cone 34 g/dL 32-36 Redcell Distribution WDTH 14 % 10.5-15 Platelet Count 361 CUMM 150-450 Mean Platelet Volume 6.8 um3 Low 7.4-10.4 114 Manual Differential 05/30/2010 [facility] Polysegmented Neutrophil 50 % 38-83 [phone] Lymphocyte 35 % 25-47 Monocyte 6 % 0-13 Eosinophil 6 % 0-6 Atypical Lymph 3 % 0-6 Absolute Neutrophil Count 2.4 Anisocytosis SLIGHT Macrocytosis SLIGHT Comp Metabolic Panel 07/06/2009 [facility] Sodium 132 mmol/L Low 135- 145 [phone] Potassium 5.0 mmol/L 3.5-5.0 Chloride 99 mmol/L Low 101-111 Co2 (Carbon Dioxide) 28.0 mmol/L 22-32 Anion Gap 5.0 mmol/L 2-11 115 Glucose 88 mg/dL 70-100 116 BUN 5 mg/dL Low 6-24 Creatinine 0.70 mg/dL 0.50-1.40 One Over Creatinine 1.40 BUN/Creatinine Ratio 7.1 Low 8-20 Calcium 9.6 mg/dL 8.1-9.9 117 Total Protein 6.5 GM/DL 6.2-8.1 Albumin 4.3 GM/DL 3.6-5.4 Globulin 2.2 GM/DL 2-4 Albumin/Globulin Ratio 2.0 1-3 Bilirubin Total 0.6 mg/dL 0.4-1.5 118 Alkaline Phosphatase 53 U/L 30-110 Alt (SGPT) 23 U/L 14-54 Ast (Sgot) 32 U/L 12-42 eGFR Non- 91.7 > 60 eGFR 110.9 > 60 119 Lipid Profile 07/06/2009 [facility] Triglyceride 50 mg/dL 40-200 (Trig/Chol/HDL) [phone] Cholesterol 196 mg/dL Less Than 200 120 High Density Lipoprotein 118 mg/dL High 40-60 121 Cholesterol/HDL Ratio 1.66 AVERAGE 1-4.44 Low Density Lipoprotein 68 mg/dL Less Than 100 122 Laboratory test 07/06/2009 [facility] CPK (Creatine 100 U/L 0-170 finding [phone] Kinase) Laboratory test 04/20/2009 [facility] TSH 1.63 0.34-5.60 finding [phone] MIU/ML Comp Metabolic 07/30/2008 [facility] Sodium 138 mmol/L 135-145 Panel [phone] Potassium 4.9 mmol/L 3.5-5.0 Chloride 104 mmol/L 101-111 Co2 (Carbon Dioxide) 29.0 mmol/L 22-32 Anion Gap 5.0 mmol/L 2-11 123 Glucose 84 mg/dL 70-100 124 BUN 7 mg/dL 6-24 Creatinine 0.70 mg/dL 0.50-1.40 One Over Creatinine 1.40 BUN/Creatinine Ratio 10.0 8-20 Calcium 9.8 mg/dL 8.1-9.9 125 Total Protein 7.1 GM/DL 6.2-8.1 Albumin 4.4 GM/DL 3.6-5.4 Globulin 2.7 GM/DL 2-4 Albumin/Globulin Ratio 1.6 1-3 Bilirubin Total 0.6 mg/dL 0.4-1.5 Alkaline Phosphatase 68 U/L 30-110 Alt (SGPT) 26 U/L 14-54 Ast (Sgot) 33 U/L 12-42 Lipid Profile 07/30/2008 [facility] Triglyceride 82 mg/dL 40-200 (Trig/Chol/HDL) [phone] Cholesterol 226 mg/dL High Less Than 200 126 High Density Lipoprotein 125 mg/dL High 40-60 127 Cholesterol/HDL Ratio 1.81 AVERAGE 1-4.44 Low Density Lipoprotein 85 mg/dL Less Than 100 128 Laboratory test 07/30/2008 [facility] CPK (Creatine 93 U/L 0-170 finding [phone] Kinase) Laboratory test 05/13/2007 [facility] TSH 1.19 MIU/ML 0.34-5.60 finding [phone] Laboratory test 01/17/2006 [facility] TSH 1.92 MIU/ML 0.34-5.60 finding [phone] CBC With Manual 01/02/2005 [facility] White Blood 5.4 CUMM 4.8-10.8 Diff [phone] Count Anisocytosis 1+ Hematocrit 42 % 35-47 Hemoglobin 14.1 g/dL 12.0-16.0 Eosenophil 10 % High 0-6 Lymphocyte 26 % 5-47 Mean Corpuscular HGB Cone 34 g/dL 32-36 Mean Corpuscular Hemoglob 34 pg High 27-31 Mean Corpuscular Volume 99 um3 High 79-97 Monocyte 8 % 0-13 Mean Platelet Volume 7.7 um3 7.4-10.4 Platelet Count 394 CUMM 150-450 Polysegmented Neutrophil 56 % 38-83 Red Cell Count 4.20 CUMM 4.2-5.4 Redcell Distribution WDTH 14 % 10.5-15 Laboratory test 01/02/2005 [facility] Erythrocyte Sed Rate 1 MM/HR 0 -30 finding [phone] Rheumatoid Factor < 20.0 IU/mL Less Than 20 CBC With Electronic 01/02/2005 [facility] White Blood 5.4 CUMM 4.8- 10.8 Diff [phone] Count Hematocrit 42 % 35-47 Hemoglobin 14.1 g/dL 12.0-16.0 Mean Corpuscular HGB Cone 34 g/dL 32-36 Mean Corpuscular Hemoglob 34 pg High 27-31 Mean Corpuscular Volume 99 um3 High 79-97 Mean Platelet Volume 7.7 um3 7.4-10.4 Platelet Count 394 CUMM 150-450 Red Cell Count 4.20 CUMM 4.2-5.4 Redcell Distribution WDTH 14 % 10.5-15 Laboratory test finding 01/02/2005 [facility] TSH 2.68 MIU/ML 0.34- 5.60 [phone] Laboratory test finding 06/21/2004 [facility] TSH 2.39 MIU/ML 0.34- 5.60 [phone] Laboratory test finding 12/15/2003 [facility] TSH 1.40 [phone] 1 Pt aware of results. SL 2 Because ethnic data is not always readily available, this report includes an eGFR for both -Americans and non- Americans. The National Kidney Disease Education Program (NKDEP) does not endorse the use of the MDRD equation for patients that are not between the ages of 18 and 70, are , have extremes of body size, muscle mass, or nutritional status, or are non- or non-. According to the National Kidney Foundation, irrespective of diagnosis, the stage of the disease is based on the level of kidney function: Stage Description GFR(mL/min/1.73 m(2)) 1 Kidney damage with normal or decreased GFR 90 2 Kidney damage with mild decrease in GFR 60-89 3 Moderate decrease in GFR 30-59 4 Severe decrease in GFR 15-29 5 Kidney failure <15 (or dialysis) 3 SEE RESULT BELOW Name: YULIET GARCIA : [address]: Silvano Bolanos MD Acct: [id number] Unit: [id number] AGE: 67 Location: [facility] Re04/08/18 SEX: F Status: REG REF SPEC: [id number] KELLI: 04/08/18 [facility] [address]: Silvano Bolanos MD REQ: [id number] RECD: 04/09/18 STATUS: JAYSHREE BYRD DR: Robin Vu DO _ ORDERED: TP IMAGE ANALYS, HPV/Thin Prep COMMENTS: [id number] Negative for Intraepithelial lesion or Malignancy Date Time Test Result Flag (u) Normal Range 04/08/181521 @ HPV RNA Negative Negative @ @ The high-risk HPV types detected by the assay include: 16, @ 18, 31, 33, 35, 39, 45, 51, 52, 56, 58, 59, 66, and 68. A. Ectocervical/Endocervical Specimen Adequacy: Satisfactory of evaluation Transformation zone component cannot be definitely identified due to presence of atrophy or other hormonal changes Scanty epithelial component Patient Information: HPV: High risk HPV RNA testing regardless of pap results. Actual Specimen Date: 04/08/18 LMP If Unknown: 2001 Date of Last Specimen: 06/18/15 Signed by and Reported on: YannJOSLYN Gaytan (ASCP) 1532 This Pap test was evaluated with the assistance of the [employer]armaPrep Test Imaging System. Due to cytologic findings at the remote control mirror installer microscope, comprehensive manual rescreening by a [place] may be required. The Pap Smear is a screening test designed to aid in the detection of premalignant and malignant conditions of the uterine cervix. It is not a diagnostic procedure and should not be used as the sole means of detecting cervical cancer. Both false- positive and false- negative reports do occur. Depending on your risk status, a Pap smear should be obtained and evaluated every 1-3 years. END OF REPORT DEPARTMENT OF PATHOLOGY, [address] [place] [address] Lionel Massey M.D. Director [facility] # [id number] 4 cc pmd 5 cc pmd 6 Acute inflammation: >10.00 7 [id number] SEE RESULT BELOW Name: YULIET GARCIA : [address]: María Elena NEAL Acct: [id number] Unit: [id number] AGE: 66 Location: [facility] Re05/15/17 SEX: F Status: REG REF SPEC: [id number] KELLI: 05/15/[address]: María Elena NEAL REQ: [id number] RECD: 05/15/17 STATUS: COMP _ SOURCE: NASAL SPDESC: ORDERED: MRSA PCR-Nasal COMMENTS: [id number] Procedure Result Reported Site MRSA PCR (Nasal) Final 05/15/17- 2104 ML Organism 1 MRSA NEGATIVE * ML - [facility] LAB ([facility]) . END OF REPORT * ML=Testing performed at Main Lab DEPARTMENT OF PATHOLOGY, [address] [place] [address] Lionel Massey M.D. Director [facility] # [id number] RESULT: No apparent monoclonal protein on serum electrophoresis. Test Performed by: [address] [address] 10 Acute inflammation: >10.00 11 cc pmd 12 cc pmd 13 Normal Range 180 to 914 Indeterminate Range 145 to 180 Deficient Range <145 14 Because ethnic data is not always readily available, this report includes an eGFR for both -Americans and non- Americans. The National Kidney Disease Education Program (NKDEP) does not endorse the use of the MDRD equation for patients that are not between the ages of 18 and 70, are , have extremes of body size, muscle mass, or nutritional status, or are non- or non-. According to the National Kidney Foundation, irrespective of diagnosis, the stage of the disease is based on the level of kidney function: Stage Description GFR(mL/min/1.73 m(2)) 1 Kidney damage with normal or decreased GFR 90 2 Kidney damage with mild decrease in GFR 60-89 3 Moderate decrease in GFR 30-59 4 Severe decrease in GFR 15-29 5 Kidney failure <15 (or dialysis) 15 Acute inflammation: >10.00 16 Because ethnic data is not always readily available, this report includes an eGFR for both -Americans and non- Americans. The National Kidney Disease Education Program (NKDEP) does not endorse the use of the MDRD equation for patients that are not between the ages of 18 and 70, are , have extremes of body size, muscle mass, or nutritional status, or are non- or non-. According to the National Kidney Foundation, irrespective of diagnosis, the stage of the disease is based on the level of kidney function: Stage Description GFR(mL/min/1.73 m(2)) 1 Kidney damage with normal or decreased GFR 90 2 Kidney damage with mild decrease in GFR 60-89 3 Moderate decrease in GFR 30-59 4 Severe decrease in GFR 15-29 5 Kidney failure <15 (or dialysis) 17 Because ethnic data is not always readily available, this report includes an eGFR for both -Americans and non- Americans. The National Kidney Disease Education Program (NKDEP) does not endorse the use of the MDRD equation for patients that are not between the ages of 18 and 70, are , have extremes of body size, muscle mass, or nutritional status, or are non- or non-. According to the National Kidney Foundation, irrespective of diagnosis, the stage of the disease is based on the level of kidney function: Stage Description GFR(mL/min/1.73 m(2)) 1 Kidney damage with normal or decreased GFR 90 2 Kidney damage with mild decrease in GFR 60-89 3 Moderate decrease in GFR 30-59 4 Severe decrease in GFR 15-29 5 Kidney failure <15 (or dialysis) 18 Desirable <150 Borderline high 150-199 High 200-499 Very High >500 19 Desirable <200 Borderline high 200-239 High >239 20 Low <40 Desirable: 40-60 High: >60 21 Desirable: <100 mg/dL Near Optimal: 100-129 mg/dL Borderline High: 130-159 mg/dL High: 160-189 mg/dL Very High: >189 mg/dL 22 Because ethnic data is not always readily available, this report includes an eGFR for both -Americans and non- Americans. The National Kidney Disease Education Program (NKDEP) does not endorse the use of the MDRD equation for patients that are not between the ages of 18 and 70, are , have extremes of body size, muscle mass, or nutritional status, or are non- or non-. According to the National Kidney Foundation, irrespective of diagnosis, the stage of the disease is based on the level of kidney function: Stage Description GFR(mL/min/1.73 m(2)) 1 Kidney damage with normal or decreased GFR 90 2 Kidney damage with mild decrease in GFR 60-89 3 Moderate decrease in GFR 30-59 4 Severe decrease in GFR 15-29 5 Kidney failure <15 (or dialysis) 23 Because ethnic data is not always readily available, this report includes an eGFR for both -Americans and non- Americans. The National Kidney Disease Education Program (NKDEP) does not endorse the use of the MDRD equation for patients that are not between the ages of 18 and 70, are , have extremes of body size, muscle mass, or nutritional status, or are non- or non-. According to the National Kidney Foundation, irrespective of diagnosis, the stage of the disease is based on the level of kidney function: Stage Description GFR(mL/min/1.73 m(2)) 1 Kidney damage with normal or decreased GFR 90 2 Kidney damage with mild decrease in GFR 60-89 3 Moderate decrease in GFR 30-59 4 Severe decrease in GFR 15-29 5 Kidney failure <15 (or dialysis) 24 [id number] 25 Because ethnic data is not always readily available, this report includes an eGFR for both -Americans and non- Americans. The National Kidney Disease Education Program (NKDEP) does not endorse the use of the MDRD equation for patients that are not between the ages of 18 and 70, are , have extremes of body size, muscle mass, or nutritional status, or are non- or non-. According to the National Kidney Foundation, irrespective of diagnosis, the stage of the disease is based on the level of kidney function: Stage Description GFR(mL/min/1.73 m(2)) 1 Kidney damage with normal or decreased GFR 90 2 Kidney damage with mild decrease in GFR 60-89 3 Moderate decrease in GFR 30-59 4 Severe decrease in GFR 15-29 5 Kidney failure <15 (or dialysis) 26 [facility] Severe Sepsis and Septic Shock Management Bundle Measure requires all lactic acids initially measuring >2.0 mmol/L be repeated. 27 Because ethnic data is not always readily available, this report includes an eGFR for both -Americans and non- Americans. The National Kidney Disease Education Program (NKDEP) does not endorse the use of the MDRD equation for patients that are not between the ages of 18 and 70, are , have extremes of body size, muscle mass, or nutritional status, or are non- or non-. According to the National Kidney Foundation, irrespective of diagnosis, the stage of the disease is based on the level of kidney function: Stage Description GFR(mL/min/1.73 m(2)) 1 Kidney damage with normal or decreased GFR 90 2 Kidney damage with mild decrease in GFR 60-89 3 Moderate decrease in GFR 30-59 4 Severe decrease in GFR 15-29 5 Kidney failure <15 (or dialysis) 28 Critical Result NA:119 Called to [id number] at: 14:17:17 by:[id number] Read back by:[id number] 29 Acute inflammation: >10.00 30 SEE RESULT BELOW Name: YULIET GARCIA : [address]: John Sanchez MD Acct: [id number] Unit: [id number] AGE: 66 Location: [place] [address] Re09/13/16 Dis: 09/14/16 SEX: F Status: DIS IN SPEC: [id number] KELLI: 09/12/16 [facility] [address]: Hamilton Barnhart MD REQ: [id number] RECD: 09/12/16 STATUS: ANASTACIO BYRD DR: Robin Vu DO _ SOURCE: BLOOD,VENO SPDESC: ORDERED: Blood Cult Procedure Result Reported Site Aerobic Culture Bottle Final 09/17/16- 1932 ML No Growth Day 5 Anaerobic Culture Bottle Final 09/17/161932 ML No Growth Day 5 * ML - MAIN LAB ([facility]) . END OF REPORT * ML=Testing performed at Main Lab DEPARTMENT OF PATHOLOGY, [address] [place] [address] Lionel Massey M.D. Director [facility] # [id number] 31 Test Performed by: [facility] - [address] [address] 32 SEE RESULT BELOW Name: YULIET GARCIA : [address]: Brittanie Couch MD Acct: [id number] Unit: [id number] AGE: 66 Location: [place] Re07/03/16 SEX: F Status: REG REF SPEC: [id number] KELLI: 07/03/16-1210 [facility] [address]: Brittanie Couch MD REQ: [id number] RECD: 07/03/16 STATUS: ANASTACIO [facility] DR: Robin Vu DO _ [facility]: Culture Stain QUERIES: Specimen Description LUMBAR WOUND Procedure Result Reported Site Wound/Misc Gram Stain Final 07/03/16- 1428 ML 3+ Neutrophils 2+ Gram Positive Cocci Wound/Misc Culture Final 07/05/16- 0851 ML Organism 1 MRSA Quantity 2+ Organism 2 NORMAL TAMI Quantity 1+ 1. MRSA M.I.C. RX --------- ------ Penicillin >=0.5 R Clindamycin R This isolate is presumed to be resistant based on detection of inducible Clindamycin resistance. Clindamycin may still be effective in some patients. Erythromycin >=8 R Gentamicin <=0.5 S Linezolid 2 S Nitrofurantoin <=16 S Oxacillin >=4 R * Quinupristin/Dalfopristin <=0.25 S Rifampin <=0.5 S Tetracycline <=1 S Doxycycline - Deduced S CONTINUED ON NEXT PAGE * ML=Testing performed at Main Lab DEPARTMENT OF PATHOLOGY, [address] [place] [address] Lionel Massey M.D. Director [facility] # [id number] Patient: YULIET GARCIA [id number] (Continued) Specimen: [id number] Collected: 07/03/16-1209 Received: 07/03/16-1316 (Continued) Procedure Result Reported Site Wound/Misc Culture Final (continued) 07/05/16- 850 1. MRSA (continued) M.I.C. RX --------- ------ * Minocycline - Deduced S Trimethoprim/Sulfamethoxazole <=10 S Vancomycin 1 S Imipenem-Deduced R * Ampicillin/Sulbactam-Deduced R Cefazolin-Deduced R * These antibiotics are not available in the [facility] Formulary Contact the Microbiology Department for any additional antibiotic reporting. * ML - MAIN LAB ([facility]) . END OF REPORT * ML=Testing performed at Main Lab DEPARTMENT OF PATHOLOGY, [address] [place] [address] Lionel Massye M.D. Director [facility] # [id number] 33 FU 34 SEE RESULTS BELOW [id number] EPIFIX 18 TRANSFUSED 06/14/16 0953 35 SEE RESULTS BELOW [id number] EPIFIX 18 TRANSFUSED 06/07/16 0919 36 Because ethnic data is not always readily available, this report includes an eGFR for both -Americans and non- Americans. The National Kidney Disease Education Program (NKDEP) does not endorse the use of the MDRD equation for patients that are not between the ages of 18 and 70, are , have extremes of body size, muscle mass, or nutritional status, or are non- or non-. According to the National Kidney Foundation, irrespective of diagnosis, the stage of the disease is based on the level of kidney function: Stage Description GFR(mL/min/1.73 m(2)) 1 Kidney damage with normal or decreased GFR 90 2 Kidney damage with mild decrease in GFR 60-89 3 Moderate decrease in GFR 30-59 4 Severe decrease in GFR 15-29 5 Kidney failure <15 (or dialysis) 37 Acute inflammation: >10.00 38 EPIDURAL ABCESS L2-L5 39 SEE RESULT BELOW Name: YULIET GARCIA : [address]: Johan Cannon MD Acct: [id number] Unit: [id number] AGE: 65 Location: [place] Re01/10/16 SEX: F Status: REG SDC SPEC: [id number] KELLI: 01/10/16 [facility] [address]: Johan Cannon MD REQ: [id number] RECD: 01/10/16 STATUS: RES HR : Robin Vu DO _ SOURCE: WOUND SPDESC:ABSCESS ORDERED: Anaerobic Cult, Culture Stain COMMENTS: EPIDURAL ABCESS L2-L5 Procedure Result Reported Site Anaerobic Culture PENDING Wound/Misc Gram Stain Final 01/10/16- 1413 ML 1+ Neutrophils No Organisms Seen Wound/Misc Culture PENDING * ML - MAIN LAB ([facility]) . END OF REPORT * ML=Testing performed at Main Lab DEPARTMENT OF PATHOLOGY, [address] [place] [address] Lionel Massey M.D. Director [facility] # [id number] 40 SEE RESULT BELOW Name: YULIET GARCIA : [address]: Johan Cannon MD Acct: [id number] Unit: [id number] AGE: 65 Location: [facility] 335- Re01/10/16 Dis: 01/12/16 SEX: F Status: DIS IN SPEC: [id number] KELLI: 01/10/16 [facility] [address]: Johan Cannon MD REQ: [id number] RECD: 01/10/16 STATUS: ANASTACIO BYRD DR: Robin Vu DO _ SOURCE: TISSUE SPDESC:LUMBAR ORDERED: Tissue Cult/GS COMMENTS: EPIDURAL ABCESS L2-L5 Procedure Result Reported Site Tissue Gram Stain Final 01/10/16- 1534 ML 4+ Epithelial Cells 1+ Neutrophils No Organisms Seen Preparation By Cytospin Smear Tissue Culture Final 01/14/16- 45 ML No Growth Day 4 * ML - MAIN LAB ([facility]) . END OF REPORT * ML=Testing performed at Main Lab DEPARTMENT OF PATHOLOGY, [address] [place] [address] Lionel Massey M.D. Director [facility] # [id number] 41 SEE RESULT BELOW Name: DONELL GARCIATERRY Pina : [address]: Johan Cannon MD Acct: [id number] Unit: [id number] AGE: 65 Location: [facility] 335- Re01/10/16 Dis: 01/12/16 SEX: F Status: DIS IN SPEC: [id number] KELLI: 01/10/16 [facility] [address]: Johan Cannon MD REQ: [id number] RECD: 01/10/16 STATUS: ANASTACIO BYRD DR: Robin Vu DO _ SOURCE: WOUND SPDESC:ABSCESS ORDERED: Anaerobic Cult, Culture Stain COMMENTS: EPIDURAL ABCESS L2-L5 Procedure Result Reported Site Anaerobic Culture Final 01/14/16- 0944 ML No Growth Day 4 Wound/Misc Gram Stain Final 01/10/16- 1413 ML 1+ Neutrophils No Organisms Seen Wound/Misc Culture Final 01/14/16- 0944 ML No Growth Day 4 * [facility] - [facility]) . END OF REPORT * ML=Testing performed at Main Lab DEPARTMENT OF PATHOLOGY, [address] [place] [address] Lionel Massey M.D. Director [facility] # [id number] 42 SEE RESULT BELOW Name: YULIET GARCIA : [address]: Johan Cannon MD Acct: [id number] Unit: [id number] AGE: 65 Location: [facility] 335 Re01/10/16 SEX: F Status: ADM IN SPEC: [id number] KELLI: 01/10/16-1340 [facility] [address]: Johan Cannon MD REQ: [id number] RECD: 01/11/16 STATUS: RES HR DR: Robin Vu DO _ SOURCE: WOUND SPDESC:LUMBAR ORDERED: Fungal - Other, AFB Cult Smear Procedure Result Reported Site Fungal Cult - Other Sources PENDING Acid Fast Stain - Direct Final 01/12/16823 ML AFB Smear Result No Acid Fast Bacillus Present (Negative) Preparation By Cytospin Smear Due to limited sensitivity of the smear, results should be used as an adjunct in evaluating the patient's status and cultural examination is highly recommended for diagnosis. * ML - [facility]) . END OF REPORT * ML=Testing performed at Main Lab DEPARTMENT OF PATHOLOGY, [address] [place] [address] Lionel Massey M.D. Director [facility] # [id number] 43 SEE RESULT BELOW Name: YULIET GARCIA : [address]: Johan Cannon MD Acct: [id number] Unit: [id number] AGE: 65 Location: [facility] 335- Re01/10/16 Dis: 01/12/16 SEX: F Status: DIS IN SPEC: [id number] KELLI: 01/10/16-1340 [facility] [address]: Johan Cannon MD REQ: [id number] RECD: 01/11/16 STATUS: ANASTACIO BYRD DR: Robin Vu DO _ SOURCE: WOUND SPDESC:LUMBAR ORDERED: Fungal - Other, AFB Cult Smear Procedure Result Reported Site Fungal Cult - Other Sources Final 02/07/16- 1054 ML No Growth Week 4 Acid Fast Stain - Direct Final 01/12/16- 0824 ML AFB Smear Result No Acid Fast Bacillus Present (Negative) Preparation By Cytospin Smear Due to limited sensitivity of the smear, results should be used as an adjunct in evaluating the patient's status and cultural examination is highly recommended for diagnosis. * ML - MAIN LAB ([facility]) . END OF REPORT * ML=Testing performed at Main Lab DEPARTMENT OF PATHOLOGY, [address] [place] [address] Lionel Massey M.D. Director [facility] # [id number] SOURCE: SPINE, LUMBAR WOUND MYCOBACTERIAL CULTURE FINAL No growth after 60 days of incubation. Test Performed by: [place] [address] Promotions Assistant Sales Marketing: Clyde Pitts II, M.D., Ph.D. 45 Because ethnic data is not always readily available, this report includes an eGFR for both -Americans and non- Americans. The National Kidney Disease Education Program (NKDEP) does not endorse the use of the MDRD equation for patients that are not between the ages of 18 and 70, are , have extremes of body size, muscle mass, or nutritional status, or are non- or non-. According to the National Kidney Foundation, irrespective of diagnosis, the stage of the disease is based on the level of kidney function: Stage Description GFR(mL/min/1.73 m(2)) 1 Kidney damage with normal or decreased GFR 90 2 Kidney damage with mild decrease in GFR 60-89 3 Moderate decrease in GFR 30-59 4 Severe decrease in GFR 15-29 5 Kidney failure <15 (or dialysis) 46 Acute inflammation: >10.00 47 Because ethnic data is not always readily available, this report includes an eGFR for both -Americans and non- Americans. The National Kidney Disease Education Program (NKDEP) does not endorse the use of the MDRD equation for patients that are not between the ages of 18 and 70, are , have extremes of body size, muscle mass, or nutritional status, or are non- or non-. According to the National Kidney Foundation, irrespective of diagnosis, the stage of the disease is based on the level of kidney function: Stage Description GFR(mL/min/1.73 m(2)) 1 Kidney damage with normal or decreased GFR 90 2 Kidney damage with mild decrease in GFR 60-89 3 Moderate decrease in GFR 30-59 4 Severe decrease in GFR 15-29 5 Kidney failure <15 (or dialysis) 48 Desirable <150 Borderline high 150-199 High 200-499 Very High >500 49 Desirable <200 Borderline high 200-239 High >239 50 Low <40 Desirable: 40-60 High: >60 51 Desirable: <100 mg/dL Near Optimal: 100-129 mg/dL Borderline High: 130-159 mg/dL High: 160-189 mg/dL Very High: >189 mg/dL 52 FASTING 53 FASTING 54 FASTING 55 FASTING 56 Because ethnic data is not always readily available, this report includes an eGFR for both -Americans and non- Americans. The National Kidney Disease Education Program (NKDEP) does not endorse the use of the MDRD equation for patients that are not between the ages of 18 and 70, are , have extremes of body size, muscle mass, or nutritional status, or are non- or non-. According to the National Kidney Foundation, irrespective of diagnosis, the stage of the disease is based on the level of kidney function: Stage Description GFR(mL/min/1.73 m(2)) 1 Kidney damage with normal or decreased GFR 90 2 Kidney damage with mild decrease in GFR 60-89 3 Moderate decrease in GFR 30-59 4 Severe decrease in GFR 15-29 5 Kidney failure <15 (or dialysis) 57 Desirable <150 Borderline high 150-199 High 200-499 Very High >500 58 Desirable <200 Borderline high 200-239 High >239 59 Low <40 Desirable: 40-60 High: >60 60 Desirable <100 Near Optimal 100-129 Borderline high 130-159 High 160-189 Very High >189 61 Interpretation: 10-19 ng/mL (mild to moderate deficiency) REFERENCE VALUE 25-HYDROXY D TOTAL (D2+D3) Optimum levels in the healthy population are 20-50, patients with bone disease may benefit from higher levels within this range. Test Performed by: [place] [address] Promotions Assistant Sales Marketing: Zheng Estrada M.D. 62 Because ethnic data is not always readily available, this report includes an eGFR for both -Americans and non- Americans. The National Kidney Disease Education Program (NKDEP) does not endorse the use of the MDRD equation for patients that are not between the ages of 18 and 70, are , have extremes of body size, muscle mass, or nutritional status, or are non- or non-. According to the National Kidney Foundation, irrespective of diagnosis, the stage of the disease is based on the level of kidney function: Stage Description GFR(mL/min/1.73 m(2)) 1 Kidney damage with normal or decreased GFR 90 2 Kidney damage with mild decrease in GFR 60-89 3 Moderate decrease in GFR 30-59 4 Severe decrease in GFR 15-29 5 Kidney failure <15 (or dialysis) 63 Desirable <150 Borderline high 150-199 High 200-499 Very High >500 64 Desirable <200 Borderline high 200-239 High >239 65 Low <40 Desirable: 40-60 High: >60 66 Desirable <100 Near Optimal 100-129 Borderline high 130-159 High 160-189 Very High >189 67 Because ethnic data is not always readily available, this report includes an eGFR for both -Americans and non- Americans. The National Kidney Disease Education Program (NKDEP) does not endorse the use of the MDRD equation for patients that are not between the ages of 18 and 70, are , have extremes of body size, muscle mass, or nutritional status, or are non- or non-. According to the National Kidney Foundation, irrespective of diagnosis, the stage of the disease is based on the level of kidney function: Stage Description GFR(mL/min/1.73 m(2)) 1 Kidney damage with normal or decreased GFR 90 2 Kidney damage with mild decrease in GFR 60-89 3 Moderate decrease in GFR 30-59 4 Severe decrease in GFR 15-29 5 Kidney failure <15 (or dialysis) 68 Because ethnic data is not always readily available, this report includes an eGFR for both -Americans and non- Americans. The National Kidney Disease Education Program (NKDEP) does not endorse the use of the MDRD equation for patients that are not between the ages of 18 and 70, are , have extremes of body size, muscle mass, or nutritional status, or are non- or non-. According to the National Kidney Foundation, irrespective of diagnosis, the stage of the disease is based on the level of kidney function: Stage Description GFR(mL/min/1.73 m(2)) 1 Kidney damage with normal or decreased GFR 90 2 Kidney damage with mild decrease in GFR 60-89 3 Moderate decrease in GFR 30-59 4 Severe decrease in GFR 15-29 5 Kidney failure <15 (or dialysis) 69 Because ethnic data is not always readily available, this report includes an eGFR for both -Americans and non- Americans. The National Kidney Disease Education Program (NKDEP) does not endorse the use of the MDRD equation for patients that are not between the ages of 18 and 70, are , have extremes of body size, muscle mass, or nutritional status, or are non- or non-. According to the National Kidney Foundation, irrespective of diagnosis, the stage of the disease is based on the level of kidney function: Stage Description GFR(mL/min/1.73 m(2)) 1 Kidney damage with normal or decreased GFR 90 2 Kidney damage with mild decrease in GFR 60-89 3 Moderate decrease in GFR 30-59 4 Severe decrease in GFR 15-29 5 Kidney failure <15 (or dialysis) 70 Desirable <150 Borderline high 150-199 High 200-499 Very High >500 71 Desirable <200 Borderline high 200-239 High >239 72 Low <40 Desirable: 40-60 High: >60 73 Desirable <100 Near Optimal 100-129 Borderline high 130-159 High 160-189 Very High >189 74 PT IS FASTING 75 Because ethnic data is not always readily available, this report includes an eGFR for both -Americans and non- Americans. The National Kidney Disease Education Program (NKDEP) does not endorse the use of the MDRD equation for patients that are not between the ages of 18 and 70, are , have extremes of body size, muscle mass, or nutritional status, or are non- or non-. According to the National Kidney Foundation, irrespective of diagnosis, the stage of the disease is based on the level of kidney function: Stage Description GFR(mL/min/1.73 m(2)) 1 Kidney damage with normal or decreased GFR 90 2 Kidney damage with mild decrease in GFR 60-89 3 Moderate decrease in GFR 30-59 4 Severe decrease in GFR 15-29 5 Kidney failure <15 (or dialysis) 76 Because ethnic data is not always readily available, this report includes an eGFR for both -Americans and non- Americans. The National Kidney Disease Education Program (NKDEP) does not endorse the use of the MDRD equation for patients that are not between the ages of 18 and 70, are , have extremes of body size, muscle mass, or nutritional status, or are non- or non-. According to the National Kidney Foundation, irrespective of diagnosis, the stage of the disease is based on the level of kidney function: Stage Description GFR(mL/min/1.73 m(2)) 1 Kidney damage with normal or decreased GFR 90 2 Kidney damage with mild decrease in GFR 60-89 3 Moderate decrease in GFR 30-59 4 Severe decrease in GFR 15-29 5 Kidney failure <15 (or dialysis) 77 HDL Interpretation: Undesirable: High Risk: Less than 40 mg/dL Desirable: Low Risk: Greater than 60 mg/dL 78 LDL Interpretation: Low Risk Optimal Level: LDL Less than 100 mg/dL Near or Above Optimal: LDL 100-129 mg/dL Borderline High Risk: LDL 130-159 mg/dL High Risk: LDL 160-189 mg/dL Very High Risk: LDL Greater than 189 mg/dL 79 FASTING 80 RUN DATE: 02/25/13 [facility] LAB LIVE PAGE 1 RUN TIME: [address] [place] [id number] Specimen Inquiry Name: YULIET GARCIA : [address]: Yusuf Flores MD Acct: [id number] Unit: [id number] AGE: 62 Location: ENDO Re02/24/13 SEX: F Status: REG REF SPEC: [id number] KELLI: 02/24/13- [facility] DR: Yusuf Flores MD REQ: [id number] RECD: 02/24/131447 STATUS: JAYSHREE BYRD DR: Adam Arnold MD _ ORDERED: LEVEL IV/2 FINAL DIAGNOSIS 1. Colon, at 20 cm., biopsy: Hyperplastic polyp. 2. Colon, at 10 cm., biopsy: A. Tubular adenoma. B. No high grade dysplasia or malignancy. CLINICAL HISTORY Screening colonoscopy POST-OPERATIVE DIAGNOSIS Screening colonoscopy - 2 polyps removed snare at 10 cm. and biopsy at 20 cm. GROSS DESCRIPTION 1. The specimen is received in formalin labeled Yuliet Garcia, Colon Polyp at 20 cm., and consists of a 0.3 x 0.3 x 0.3 cm. portion of najera-red tissue. Submitted entirely, one cassette. 2. The specimen is received in formalin labeled Yuliet Garcia, Colon Polyp at 10 cm., and consists of two najera-yellow portions of tissue that measure 0.8 x 0.5 x 0.5 cm. and 0.5 x 0.5 x 0.5 cm. Submitted entirely, one cassette. 1. Signed (signature on file) Vaishali Mireles MD 2413 END OF REPORT * ML=Testing performed at Main Lab DEPARTMENT OF PATHOLOGY, [address] [place] [address] Lionel Massey M.D. Director [facility] Permit #[id number] Fasting 82 HDL Interpretation: Undesirable: High Risk: Less than 40 MG/DL Desirable: Low Risk: Greater than 60 MG/DL 83 LDL Interpretation: Low Risk Optimal Level: LDL Less than 100 MG/DL Near or Above Optimal: LDL 100-129 MG/DL Borderline High Risk: LDL 130-159 MG/DL High Risk: LDL 160-189 MG/DL Very High Risk: LDL Greater than 189 MG/DL 84 Because ethnic data is not always readily available, this report includes an eGFR for both -Americans and non- Americans. The National Kidney Disease Education Program (NKDEP) does not endorse the use of the MDRD equation for patients that are not between the ages of 18 and 70, are , have extremes of body size, muscle mass, or nutritional status, or are non- or non-. According to the National Kidney Foundation, irrespective of diagnosis, the stage of the disease is based on the level of kidney function: Stage Description GFR(mL/min/1.73 m(2)) 1 Kidney damage with normal or decreased GFR 90 2 Kidney damage with mild decrease in GFR 60-89 3 Moderate decrease in GFR 30-59 4 Severe decrease in GFR 15-29 5 Kidney failure <15 (or dialysis) 85 Desirable: Less than 200 MG/DL Borderline-High Risk: 200-239 MG/DL High-Risk: 240 MG/DL and over 86 HDL Interpretation: Undesirable: High Risk: Less than 40 MG/DL Desirable: Low Risk: Greater than 60 MG/DL 87 A metabolite of Naproxen, O-desmethylnaproxen, has been shown to interfere with the [place] method for measuring total bilirubin. Samples from patients who have taken Naproxen have shown spurious elevation in total bilirubin levels. 88 Because ethnic data is not always readily available, this report includes an eGFR for both -Americans and non- Americans. The National Kidney Disease Education Program (NKDEP) does not endorse the use of the MDRD equation for patients that are not between the ages of 18 and 70, are , have extremes of body size, muscle mass, or nutritional status, or are non- or non-. According to the National Kidney Foundation, irrespective of diagnosis, the stage of the disease is based on the level of kidney function: Stage Description GFR(mL/min/1.73 m(2)) 1 Kidney damage with normal or decreased GFR 90 2 Kidney damage with mild decrease in GFR 60-89 3 Moderate decrease in GFR 30-59 4 Severe decrease in GFR 15-29 5 Kidney failure <15 (or dialysis) 89 CHOLESTEROL INTERPRETATION: Desirable: Less than 200 MG/DL Borderline-High Risk: 200-239 MG/DL High-Risk: 240 MG/DL and over 90 HDL INTERPRETATION: Undesirable: High Risk: Less than 40 MG/DL Desirable: Low Risk: Greater than 60 MG/DL 91 LDL INTERPRETATION: Low Risk Optimal Level: LDL Less than 100 MG/DL Near or Above Optimal: LDL 100-129 MG/DL Borderline High Risk: LDL 130-159 MG/DL High Risk: LDL 160-189 MG/DL Very High Risk: LDL Greater than 189 MG/DL 92 Anion gap measurement may be of limited value in the presence of any alkalosis, especially in a combined acid base disorder. . 93 A metabolite of Naproxen, O-desmethylnaproxen, has been shown to interfere with the [place] method for measuring total bilirubin. Samples from patients who have taken Naproxen have shown spurious elevation in total bilirubin levels. 94 Because ethnic data is not always readily available, this report includes an eGFR for both -Americans and non- Americans. The National Kidney Disease Education Program (NKDEP) does not endorse the use of the MDRD equation for patients that are not between the ages of 18 and 70, are , have extremes of body size, muscle mass, or nutritional status, or are non- or non-. According to the National Kidney Foundation, irrespective of diagnosis, the stage of the disease is based on the level of kidney function: Stage Description GFR(mL/min/1.73 m(2)) 1 Kidney damage with normal or decreased GFR 90 2 Kidney damage with mild decrease in GFR 60-89 3 Moderate decrease in GFR 30-59 4 Severe decrease in GFR 15-29 5 Kidney failure <15 (or dialysis) 95 CHOLESTEROL INTERPRETATION: Desirable: Less than 200 MG/DL Borderline-High Risk: 200-239 MG/DL High-Risk: 240 MG/DL and over 96 HDL INTERPRETATION: Undesirable: High Risk: Less than 40 MG/DL Desirable: Low Risk: Greater than 60 MG/DL 97 LDL INTERPRETATION: Low Risk Optimal Level: LDL Less than 100 MG/DL Near or Above Optimal: LDL 100-129 MG/DL Borderline High Risk: LDL 130-159 MG/DL High Risk: LDL 160-189 MG/DL Very High Risk: LDL Greater than 189 MG/DL 98 Anion gap measurement may be of limited value in the presence of any alkalosis, especially in a combined acid base disorder. . 99 A metabolite of Naproxen, O-desmethylnaproxen, has been shown to interfere with the [place] method for measuring total bilirubin. Samples from patients who have taken Naproxen have shown spurious elevation in total bilirubin levels. 100 Because ethnic data is not always readily available, this report includes an eGFR for both -Americans and non- Americans. The National Kidney Disease Education Program (NKDEP) does not endorse the use of the MDRD equation for patients that are not between the ages of 18 and 70, are , have extremes of body size, muscle mass, or nutritional status, or are non- or non-. According to the National Kidney Foundation, irrespective of diagnosis, the stage of the disease is based on the level of kidney function: Stage Description GFR(mL/min/1.73 m(2)) 1 Kidney damage with normal or decreased GFR 90 2 Kidney damage with mild decrease in GFR 60-89 3 Moderate decrease in GFR 30-59 4 Severe decrease in GFR 15-29 5 Kidney failure <15 (or dialysis) 101 NR 102 CHOLESTEROL INTERPRETATION: Desirable: Less than 200 MG/DL Borderline-High Risk: 200-239 MG/DL High-Risk: 240 MG/DL and over 103 HDL INTERPRETATION: Undesirable: High Risk: Less than 40 MG/DL Desirable: Low Risk: Greater than 60 MG/DL 104 LDL INTERPRETATION: Low Risk Optimal Level: LDL Less than 100 MG/DL Near or Above Optimal: LDL 100-129 MG/DL Borderline High Risk: LDL 130-159 MG/DL High Risk: LDL 160-189 MG/DL Very High Risk: LDL Greater than 189 MG/DL 105 Anion gap measurement may be of limited value in the presence of any alkalosis, especially in a combined acid base disorder. . 106 A metabolite of Naproxen, O-desmethylnaproxen, has been shown to interfere with the [place]ul method for measuring total bilirubin. Samples from patients who have taken Naproxen have shown spurious elevation in total bilirubin levels. 107 Because ethnic data is not always readily available, this report includes an eGFR for both -Americans and non- Americans. The National Kidney Disease Education Program (NKDEP) does not endorse the use of the MDRD equation for patients that are not between the ages of 18 and 70, are , have extremes of body size, muscle mass, or nutritional status, or are non- or non-. According to the National Kidney Foundation, irrespective of diagnosis, the stage of the disease is based on the level of kidney function: Stage Description GFR(mL/min/1.73 m(2)) 1 Kidney damage with normal or decreased GFR 90 2 Kidney damage with mild decrease in GFR 60-89 3 Moderate decrease in GFR 30-59 4 Severe decrease in GFR 15-29 5 Kidney failure <15 (or dialysis) 108 Anion gap measurement may be of limited value in the presence of any alkalosis, especially in a combined acid base disorder. . 109 A metabolite of Naproxen, O-desmethylnaproxen, has been shown to interfere with the [place] method for measuring total bilirubin. Samples from patients who have taken Naproxen have shown spurious elevation in total bilirubin levels. 110 Because ethnic data is not always readily available, this report includes an eGFR for both -Americans and non- Americans. The National Kidney Disease Education Program (NKDEP) does not endorse the use of the MDRD equation for patients that are not between the ages of 18 and 70, are , have extremes of body size, muscle mass, or nutritional status, or are non- or non-. According to the National Kidney Foundation, irrespective of diagnosis, the stage of the disease is based on the level of kidney function: Stage Description GFR(mL/min/1.73 m(2)) 1 Kidney damage with normal or decreased GFR 90 2 Kidney damage with mild decrease in GFR 60-89 3 Moderate decrease in GFR 30-59 4 Severe decrease in GFR 15-29 5 Kidney failure <15 (or dialysis) 111 CHOLESTEROL INTERPRETATION: Desirable: Less than 200 MG/DL Borderline-High Risk: 200-239 MG/DL High-Risk: 240 MG/DL and over 112 HDL INTERPRETATION: Undesirable: High Risk: Less than 40 MG/DL Desirable: Low Risk: Greater than 60 MG/DL 113 LDL INTERPRETATION: Low Risk Optimal Level: LDL Less than 100 MG/DL Near or Above Optimal: LDL 100-129 MG/DL Borderline High Risk: LDL 130-159 MG/DL High Risk: LDL 160-189 MG/DL Very High Risk: LDL Greater than 189 MG/DL 114 NRBC 115 Anion gap measurement may be of limited value in the presence of any alkalosis, especially in a combined acid base disorder. . 116 Note change in reference range as of 01/30/08. The change was based on recommendations from the [place] [employer]. 117 Please note change in reference range effective 07 . 118 A metabolite of Naproxen, O-desmethylnaproxen, has been shown to interfere with the [place] method for measuring total bilirubin. Samples from patients who have taken Naproxen have shown spurious elevation in total bilirubin levels. 119 Because ethnic data is not always readily available, this report includes an eGFR for both -Americans and non- Americans. The National Kidney Disease Education Program (NKDEP) does not endorse the use of the MDRD equation for patients that are not between the ages of 18 and 70, are , have extremes of body size, muscle mass, or nutritional status, or are non- or non-. According to the National Kidney Foundation, irrespective of diagnosis, the stage of the disease is based on the level of kidney function: Stage Description GFR(mL/min/1.73 m(2)) 1 Kidney damage with normal or decreased GFR 90 2 Kidney damage with mild decrease in GFR 60-89 3 Moderate decrease in GFR 30-59 4 Severe decrease in GFR 15-29 5 Kidney failure <15 (or dialysis) 120 CHOLESTEROL INTERPRETATION: Desirable: Less than 200 MG/DL Borderline-High Risk: 200-239 MG/DL High-Risk: 240 MG/DL and over 121 HDL INTERPRETATION: Undesirable: High Risk: Less than 40 MG/DL Desirable: Low Risk: Greater than 60 MG/DL 122 LDL INTERPRETATION: Low Risk Optimal Level: LDL Less than 100 MG/DL Near or Above Optimal: LDL 100-129 MG/DL Borderline High Risk: LDL 130-159 MG/DL High Risk: LDL 160-189 MG/DL Very High Risk: LDL Greater than 189 MG/DL 123 Anion gap measurement may be of limited value in the presence of any alkalosis, especially in a combined acid base disorder. . 124 Note change in reference range as of 01/30/08. The change was based on recommendations from the [place] [employer]. 125 Please note change in reference range effective 07 . 126 CHOLESTEROL INTERPRETATION: Desirable: Less than 200 MG/DL Borderline-High Risk: 200-239 MG/DL High-Risk: 240 MG/DL and over 127 HDL INTERPRETATION: Undesirable: High Risk: Less than 40 MG/DL Desirable: Low Risk: Greater than 60 MG/DL 128 LDL INTERPRETATION: Low Risk Optimal Level: LDL Less than 100 MG/DL Near or Above Optimal: LDL 100-129 MG/DL Borderline High Risk: LDL 130-159 MG/DL High Risk: LDL 160-189 MG/DL Very High Risk: LDL Greater than 189 MG/DL Procedures Date Code Description Status 07/04/2017 37466 X-Ray Chest 2 V TC Completed 07/04/2017 65519 X-Ray Chest 2 V pc Completed 06/14/2015 02471 Dexa Bone Density Study One Or More Sites Axial Completed Skeleton 09/25/2013 80139 Omt 3 To 4 Body Regions Involved Completed 02/09/2013 [id number] Colonoscopy Completed 09/09/2012 [id number] Mammogram Completed 03/12/2009 30714 Inhalation Therapy Completed 03/12/2009 30821 Vital Capacity, Total Completed Encounters Type Date Location Provider Dx Diagnosis Office Visit 09/20/2018 Main Office Robin Vu, R91.8 Other nonspecific 4:45p D.O. abnormal finding of lung field J44.1 Chronic obstructive pulmonary disease w (acute) exacerbation F32.9 Major depressive disorder, single episode, unspecified Z86.14 Personal history of methicillin resis staph infection M16.9 Osteoarthritis of hip, unspecified Z13.820 Encounter for screening for osteoporosis M79.2 Neuralgia and neuritis, unspecified M48.061 Spinal stenosis, lumbar region without neurogenic mehdi F41.9 Anxiety disorder, unspecified Office Visit 09/11/2018 2:30p Main Office Robin uV, R91.8 Other nonspecific D.O. abnormal finding of lung field Office Visit 06/07/2018 2:00p Main Office Robin Vu, J01.00 Acute maxillary D.O. sinusitis, unspecified R06.2 Wheezing R05 Cough J44.1 Chronic obstructive pulmonary disease w (acute) exacerbation M25.512 Pain in left shoulder Office Visit 05/31/2018 2:30p Main Office Robin Vu, Z86.14 Personal history of D.O. 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 pulmonary disease, unspecified F17.210 Nicotine dependence, cigarettes, uncomplicated M16.9 Osteoarthritis of hip, unspecified Z86.14 Personal history of methicillin resis staph infection F32.9 Major depressive disorder, single episode, unspecified Z01.818 Encounter for other preprocedural examination E78.00 Pure hypercholesterolemia, unspecified Office Visit 07/04/2017 11:00a Main Office Marlys Turner, PA R04.2 Hemoptysis J44.9 Chronic obstructive pulmonary disease, unspecified F17.210 Nicotine dependence, cigarettes, uncomplicated Z86.14 Personal history of methicillin resis staph infection Office Visit 05/15/2017 8:00a Main Office María Elena Real, M16.9 Osteoarthritis of P.A. hip, unspecified M85.80 Oth disrd of bone density and structure, unspecified site B95.62 Methicillin resis staph infct causing [facility] I65.29 Occlusion and stenosis of unspecified carotid artery Z01.818 Encounter for other preprocedural examination Office Visit 12/22/2016 8:55a Main Office Robin Vu, F32.9 Major depressive D.O. disorder, single episode, unspecified R04.2 Hemoptysis J30.9 Allergic rhinitis, unspecified Office Visit 09/20/2016 1:00p Main Office Marlys Turner, E87.1 Hypo- osmolality and PA hyponatremia F32.9 Major depressive disorder, single episode, unspecified M79.2 Neuralgia and neuritis, unspecified M16.9 Osteoarthritis of hip, unspecified M48.06 Spinal stenosis, lumbar region Office Visit 05/16/2016 1:30p Main Office Marlys Turner, F32.9 Major depressive PA disorder, single episode, unspecified Office Visit 06/14/2015 2:00p Main Office Robin Vu, M85.80 Oth disrd of bone D.O. 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 Unspec 729.2 Neuralgia Neuritis & Radiculitis Unspec 729.1 Myalgia & Myositis Unspec 733.90 Bone & Cartilage Disorder Unspec V70.0 Examination General Medical Routine AT Health Care Facility Office Visit 06/24/2014 12:55p Main Office Robin Vu D.O. 724.2 Lumbago 724.02 Spinal Stenosis Lumbar Region 722.10 Intervertebral Disc Displacement Lumbar W/O Myelopathy 729.1 Myalgia & Myositis Unspec 729.2 Neuralgia Neuritis & Radiculitis Unspec 300.00 Anxiety State Unspec 244.0 Hypothyroidism Postsurgical 272.0 Hypercholesterolemia Pure Office Visit 04/21/2014 1:20p Main Office Keith, 788.69 Urinary Calista, RPA-C Abnormaltiy Other Office Visit 12/24/2013 12:55p Main Office Robin Vu, 300.00 Anxiety State D.O. Unspec Office Visit 11/25/2013 11:00a Main Office Robin Vu, 724.02 Spinal Stenosis D.O. Lumbar Region 724.2 Lumbago 722.10 Intervertebral Disc Displacement Lumbar W/O Myelopathy 300.00 Anxiety State Unspec Office Visit 10/16/2013 12:55p Main Office Robin Vu, 724.02 Spinal Stenosis D.O. Lumbar Region 724.2 Lumbago Office Visit 10/06/2013 1:30p Main Office Robin Vu, 724.02 Spinal Stenosis D.O. Lumbar Region 722.10 Intervertebral Disc Displacement Lumbar W/O Myelopathy Office Visit 09/25/2013 1:15p Main Office Robin Vu D.O. 724.2 Lumbago 729.1 Myalgia & Myositis Unspec 729.2 Neuralgia Neuritis & Radiculitis Unspec 739.3 Lesion Nonallopathic Lumbar Region Not Elsewhere Class 739.5 Lesion Nonallopathic Pelvic Region Not Elsewhere Class 739.4 Lesion Nonallopathic Sacral Region Not Elsewhere Class 721.90 Spondylosis Unspec Site W/O Myelopathy Office Visit 04/21/2013 2:30p Main Office Adam Arnold M.D. 729.5 Pain In Limb 724.2 Lumbago Office Visit 02/05/2013 1:15p Main Office Mirella Robin, E906.4 Bite Nonvenomous D.O. Arthropod 916.4 Injury Superficial Insect Bite Hip Thigh Leg Ankle NV No Inf Office Visit 11/25/2012 1:30p Main Office [place] 244.0 Hypothyroidism Denita Medina Postsurgical 300.02 Anxiety Disorder Generalized 272.0 Hypercholesterolemia Pure V76.51 Special Screening For Malignant Neoplasms Colon V75.9 Screening Examination Infectious Disease Unspec V05.8 Single Disease Spec Other Vaccination & Inoculation V07.2 Prophylactic Immunotherapy Office Visit 02/27/2012 4:15p Main Office Toma Little MD 529.9 Tongue Unspec Condition 477.9 Rhinitis Allergic Cause Unspec 244.0 Hypothyroidism Postsurgical 305.1 Tobacco Use Disorder 300.02 Anxiety Disorder Generalized V04.81 Need For Prophylactic Vaccination & Inoculation/Influenza V07.2 Prophylactic Immunotherapy Office Visit 12/18/2011 1:15p Main Office [place] 244.0 Hypothyroidism Denita Medina Postsurgical 272.0 Hypercholesterolemia Pure 305.1 Tobacco Use Disorder 496 COPD Airway Obstruction Chronic Not Class Elsewhere 300.02 Anxiety Disorder Generalized Office Visit 10/05/2010 1:45p Main Office Adam Arnold 496 COPD Airway M.D. Obstruction Chronic Not Class Elsewhere 305.1 Tobacco Use Disorder V76.51 Special Screening For Malignant Neoplasms Colon 796.2 Blood Pressure Reading Elevated W/O Hypertension Office Visit 06/21/2010 3:00p Main Office Adam Arnold, 466.0 Bronchitis Acute M.D. 305.1 Tobacco Use Disorder 244.0 Hypothyroidism Postsurgical 796.2 Blood Pressure Reading Elevated W/O Hypertension Office Visit 05/10/2009 4:45p Main Office Adam Arnold 719.68 Joint Symptoms M.D. Other Other Spec Sites Office Visit 03/12/2009 5:00p Main Office Adam Arnold 466.0 Bronchitis Acute M.D. 305.1 Tobacco Use Disorder 244.0 Hypothyroidism Postsurgical Office Visit 06/17/2007 3:30p Main Office Silcoff, Adam, 790.6 Abnormal Blood M.D. Chemistry Other 272.0 Hypercholesterolemia Pure 305.1 Tobacco Use Disorder Office Visit 11/09/2006 1:45p Main Office Adam Arnold, 466.0 Bronchitis Acute M.D. 477.9 Rhinitis Allergic Cause Unspec 305.1 Tobacco Use Disorder Office Visit 11/01/2006 1:15p Main Office vitor 491.21 Bronchitis Obstructive Chronic W/Acute Exacerbation 305.1 Tobacco Use Disorder Office Visit 10/27/2006 10:30a Main Office Clyde PerazaRenae Herrera, 466.0 Bronchitis Acute M.D. 305.1 Tobacco Use Disorder Office Visit 12/26/2005 4:00p Main Office Adam Arnold, 300.02 Anxiety Disorder M.D. Generalized 796.2 Blood Pressure Reading Elevated W/O Hypertension 244.0 Hypothyroidism Postsurgical V76.51 Special Screening For Malignant Neoplasms Colon V07.2 Prophylactic Immunotherapy V06.1 Yakvzqornj-Wrmnpeg-Cdwshgmi Combined (DTaP) Office Visit 09/26/2005 4:00p Main Office Adam Arnold, 300.02 Anxiety Disorder M.D. Generalized 796.2 Blood Pressure Reading Elevated W/O Hypertension Office Visit 05/26/2005 3:30p Main Office Adam Arnold, 796.2 Blood Pressure M.D. Reading Elevated W/O Hypertension 300.02 Anxiety Disorder Generalized Office Visit 05/12/2005 4:45p Main Office Adam Arnold, 796.2 Blood Pressure M.D. Reading Elevated W/O Hypertension 300.02 Anxiety Disorder Generalized 746.4 Aortic Valve Insufficiency Congenital Office Visit 03/06/2005 4:15p Main Office Adam Arnold, 529.6 Glossodynia M.D. Office Visit 01/02/2005 11:00a Main Office Adam Arnold, 786.59 Pain Chest Other M.D. Office Visit 10/31/2004 4:45p Main Office Adam Arnold, 465.9 URI Upper M.D. Respiratory Infections Acute Unspec Sites Office Visit 09/19/2004 12:55p Main Office Adam Arnold, 300.02 Anxiety Disorder M.D. Generalized 244.0 Hypothyroidism Postsurgical 715.09 Osteoarthrosis Generalized Multiple Sites 305.1 Tobacco Use Disorder Office Visit 03/22/2004 12:55p Main Office Adam Arnold, 300.02 Anxiety Disorder M.D. Generalized 796.2 Blood Pressure Reading Elevated W/O Hypertension 244.0 Hypothyroidism Postsurgical Office Visit 12/15/2003 3:30p Main Office Adam Arnold, 300.02 Anxiety Disorder M.D. Generalized 796.2 Blood Pressure Reading Elevated W/O Hypertension 244.0 Hypothyroidism Postsurgical Office Visit 11/20/2003 11:00a Main Office Adam Arnold, 796.2 Blood Pressure M.D. Reading Elevated W/O Hypertension 300.02 Anxiety Disorder Generalized Office Visit 11/10/2003 3:30p Main Office Adam Arnold, 300.02 Anxiety Disorder M.D. Generalized 244.0 Hypothyroidism Postsurgical 627.2 Menopausal Or Female Climacteric State, Symptomatic 305.1 Tobacco Use Disorder 746.4 Aortic Valve Insufficiency Congenital 796.2 Blood Pressure Reading Elevated W/O Hypertension Plan of Treatment Future Appointment(s):09/30/2018 2:00 pm - Radiology, Dexa & X-Ray at [id number]/20/2018 - Robin Vu D.O.R91.8 Other nonspecific abnormal finding of lung cvigjC71.1 Chronic obstructive pulmonary disease with (acute) ytgkdncobZ42.9 Major depressive disorder, single episode, ixpmtawvspaO57.14 Personal history of Methicillin resistant Staphylococcus aurM16.9 Osteoarthritis of hip, znqkpwaoykeA77.820 Encounter for screening for xullientaqqkR72.2 Neuralgia and neuritis, izmbspknddjK77.061 Spinal stenosis, lumbar region without neurogenic claudicatiFollow up:as available for Dexa ScanF41.9 Anxiety disorder, unspecified
--- OUTSIDE RECORDS SUMMARY | 2018-09-30 21:45 | XMS REPORT | Continuity of Care Document ---
:1950 External Reference #:[id number] Author Name Robin Vu D.O. Address [address] [place] [address] Care Team Providers Name Role Phone HCP given Primary Care Physician Unavailable Payers Date Identification Numbers Payment Provider Subscriber Effective: 2017 Policy Number: [id number] [facility] Yuliet Garcia PayID: [id number] [address] [place] [address] Effective: 2017 Policy Number: [id number] [facility] Yuliet Garcia PayID: [id number] [address] [place] [address] Advance Directives Description No Information Available Problems Active Problems Provider Date Generalized anxiety disorder Adam Arnold M.D. Onset: 11/20/2003 Postoperative hypothyroidism Adam [...] to Lung Cancer (02/2009) Mother Hypercholesterolemia Mother [place] Mother 192 First Brother General Health Good First Brother Isaiah First Brother 194 Social History Type Date Description Comments Sex Unknown Education Highest level completed, 12th grade Marital Status Lives With Male Partner Smoke-Free Home is not smoke-free Occupation Self Employed [employer] [place] Abuse No history of abuse General No kids. Tobacco Use Start: Unknown Current Cigarette 3/4 pack daily Smoker since 22years old=42 *.75=approx. 31.5 pack year history. ETOH Use 2-3 Drinks Most Nights, But "Not Always" (~4X/WK) Tobacco Use Start: Unknown Patient is a current Less than a PPD smoker, smokes every day Smoking Status Reviewed: 06/07/18 Patient is a current Less than a PPD smoker, smokes every day Exercise Type/Frequency Exercises regularly Sun Exposure moderate amount of sun exposure Sun Exposure Uses sunscreen Seat Belt/Car Seat always uses seat belt Currently Active Patient is currently sexually active Contraceptive Methods Current methods include condoms Age 1st [place] 20 Years Old Additional Info Sexual preference is men Sexual Hx Patient has had 9 sexual partners. Allergies, Adverse Reactions, Alerts Active Allergies Reaction Severity Comments Date Lisinopril 06/07/2018 Losartan 06/07/2018 Inactive Allergies No Known Drug Allergy 06/21/2010 Medications Active Medications SIG Qnty Indications Ordering Provider Date Fluconazole 5ml swish and 70ml Robin Vu, 09/11/2018 40mg/ml swallow daily x D.O. Suspension Rec 14 days Duloxetine HCL one po daily Unknown 03/31/[address] Soriano Rosuvastatin Calcium one po daily Unknown 01/08/2018 20mg Tablets Clopidogrel Bisulfate one po daily Unknown 11/13/2017 75mg Tablets Aspirin Adult Low Dose 1 by mouth every Unknown 11/13/[address] Dodson take 1/2 to 1 14tabs F41.9 Adam Arnold, 11/25/2013 0.5mg Tablets tablet by mouth M.D. For Acute Anxiety Every 12 Hours as Needed. Max Of 2 Tabs/Day Atenolol 1 1/2 po qd 90tabs Unknown 11/24/2013 50mg Tablets Amlodipine Besylate 1 po qd 90tabs Unknown 11/24/2013 2.5mg Tablets Levothyroxine Sodium take 1 tablet by 90tabs E89.0 Robin Vu, 2013 mouth every D.O. 88mcg Tablets morning On An Empty Stomach, [...] Arnold, 11/2017 - 20mg by mouth daily M.D. 05/30/2018 Tablets Ventolin HFA 2 puffs q4-6 [...] Tablets every 6 hours as [facility] 05/15/2016 needed for pain Escitalopram Oxalate take 1 tablet by 30tabs F41.1 Robin Vu, 2015 - 10mg mouth once daily D.O. 05/16/2016 Tablets F41.9 Lexapro 1 by mouth every 90tabs F41.1 Robin Vu, 06/14/2015 - 10mg day D.O. 11/17/2015 Tablets F41.9 Combivent Respimat 1 puffs every 4 hours as 1inh J44.9 Silcoff, 2015 - needed for asthma Denita Medina [...] Tablets Alprazolam 1/2-1 tabs for 2tabs 729.2 Mirella, 09/25/2013 - 0.5mg procedure aAyush Kelly.O. 11/24/2013 Tablets Gabapentin 1 pill tonight 90caps 729.5 Clayton, 04/21/2013 - 300mg then 1 pill twice Denita Medina 05/19/2013 Capsules daily for 1 day then 1 pill 3x/day Simvastatin 1 by mouth every E78.0 Clayton, 11/25/2012 - 20mg evening to lower Denita [...] each 1units 477.9 Toma Little 02/27/2012 - 137mcg/[place] nostril 2x/daily. 11/25/2012 Solution this is a nasal antihistamine. use if needed as discussed. Fluticasone 2 sprays into each 3units 477.9 Toma Little 02/27/2012 - Propionate nostril qd for 11/25/2012 50mcg/Act nasal congestion. Suspension destin allergies. rinse mouth post Simvastatin 1 by mouth every 272.0 Clayton, 12/18/2011 - 20mg evening to lower Denita Medina 10/21/2012 Tablets cholesterol Nicotine apply 1 patch, 42units 305.1 Clayton, 12/18/2011 - 21mg/24HR change daily as Denita Medina 11/25/2012 Patches 24HR directed; use for 6 weeks then change to 14mg strength Simvastatin 2 by mouth every 0tabs 272.0 Unknown 12/17/2011 - 20mg evening 12/18/2011 Tablets Synthroid Take 1 Tablet 90tabs 244.0 Clayton, 10/08/2011 - 88mcg Every Morning On Denita Medina 07/04/2013 Tablets An Empty Stomach. Azithromycin 2 by mouth on day 6tabs Clayton 07/12/2011 - 250mg then 1 by mouth [...] 1 po qd for blood 90tabs 785.1 Silcoff, 09/26/2005 - 50mg Tablets pressure Denita Medina 11/24/2013 Lexapro 1.5 po qd for 4-6 300.02 Silcoff, 09/26/2005 - 10mg Tablets wks then 2 [...] 10/31/2004 Lexapro 1 po qd 90tabs 300.02 Meraricojames, 11/10/2003 - 10mg Tablets Denita Medina 09/26/2005 Lorazepam 1/8 of A tablet q8h 15tabs 300.02 Brennan 09/18/2002 - 1mg Tablets prn for anxiety MD Jimmy 07/10/2005 Synthroid take 1 tablet by 90tabs 244.0 Silcojames, - 75mcg mouth once daily Denita Medina 10/08/2011 Tablets Aspirin Adult Low Unknown - Strength 12/21/2016 81mg Tablets Vitamin B12 take 1 sublingual Unknown - [...] CPT Code Status Date Vaccine Lot # [id number] Given 03/18/2018 Influenza Vaccine, Inactivated, Subunit, Adjuvanted, [id number] Given 03/14/2015 Influenza Virus Vaccine, Quadrivalent, Split, Preservative Free 19545 Given 03/12/2014 Flu, Split Virus 3Yrs 33877 Given 03/24/2013 Flu, Split Virus 3Yrs 26396 Given 11/25/2012 Zostavax [id number] 97857 Given 02/27/2012 Flu, Split Virus 3Yrs [id number] 91809 Given 03/02/2011 Flu, Split Virus 3Yrs 86820 Given 03/21/2010 Flu, Split Virus 3Yrs 89366 Given 03/05/2009 Flu, Split Virus 3Yrs [id number] 90678 Given 04/02/2008 Flu, Split Virus 3Yrs [id number] 79544 Given 04/18/2007 Flu, Split Virus 3Yrs [id number] 15888 Given 04/10/2006 Flu, Split Virus 3Yrs 99364 Given 12/26/2005 Adacel or Boostrix, TDaP [id number] 42382 Given 03/25/2005 Flu, Split Virus 3Yrs 84953 Given 04/11/2003 Flu, Split Virus 3Yrs Vital Signs Date Vital Result Comment 09/11/2018 2:58pm BP Systolic 130 mmHg BP [...] A1c 5.5 1 finding Laboratory test 05/13/2018 [facility] TSH (Thyroid 2.55 N 0.34-5.60 finding [phone] Stim Horm) mcIU/mL CBC Auto Diff 05/13/2018 [facility] White Blood 8.8 10^3/uL N 3.5- 10.8 [phone] Count Red Blood Count 3.77 10^6/uL Low [...] Cells % 0.1 Comp Metabolic Panel 05/13/2018 [facility] Sodium 130 mmol/L Low 135- 145 [phone] Potassium 5.1 mmol/L High 3.5-5.0 Chloride 94 [...] Egfr 126.2 >60 2 Laboratory test 04/08/2018 [facility] Cytology SEE RESULT 3 finding [phone] BELOW Laboratory test 01/30/2018 [facility] C Reactive 3.73 mg/L N <8.01 4 finding [phone] Protein Laboratory test 01/21/2018 [facility] C Reactive 9.63 mg/L High < 8.01 5 finding [phone] Protein Laboratory test 08/08/2017 [facility] C Reactive 1.75 mg/L N < 6 finding [phone] Protein 5.00 Laboratory test 05/15/2017 [facility] MRSA Screen SEE RESULT 7, 8 finding [phone] BELOW Protein 05/07/2017 [facility] Total 6.7 g/dL 6.3 - Electrophoresis [phone] Protein(Pep) 7.9 Albumin 3.2 g/dL Abnormal 3.4-4.7 Alpha-1 Globulin 0.4 g/dL Abnormal 0.1-0.3 Alpha-2 Globulin 1.2 g/dL Abnormal 0.6-1.0 Beta Globulin 0.9 g/dL 0.7-1.2 Gamma Globulin 1.1 g/dL 0.6-1.6 Albumin/Globulin Ratio 0.93 Impression See Comment 9 Laboratory test 05/07/2017 [facility] C Reactive 1.60 mg/L N < 5.00 10 finding [phone] Protein Ferritin 48.6 ng/mL N 11-307 11 Folic Acid (Folate) 12.59 ng/mL >3.99 12 Vitamin B12 > 1450 pg/mL High 180-914 13 Iron & Iron Binding Capacity 05/07/2017 [facility] Iron 100 g/dL N 50-677 [phone] Unsaturated Iron Binding 190 g/dL Total Iron Binding Capacity 290 g/dL N 250-450 % Iron Saturation 34 % N 15-55 CBC Auto Diff 05/07/2017 [facility] White Blood Count 8.9 10^3/uL N 3.5-10.8 [phone] Red Blood Count 3.37 10^6/uL Low 4.0-5.4 [...] Cells % 0.1 Laboratory test finding 04/12/2017 [facility] Albumin 3.7 g/dL N 3.2- 5.2 [phone] Iron & Iron Binding Capacity 04/12/2017 [facility] Iron 113 g/dL N 50-212 [phone] Unsaturated Iron Binding 171 g/dL N Total Iron Binding Capacity 284 g/dL N 250-450 % Iron Saturation 40 % N 15-55 Laboratory test 04/12/2017 [facility] Ferritin 61.8 ng/mL N 11-307 finding [phone] CBC Auto Diff 04/12/2017 [facility] White Blood 8.6 10^3/uL N 3.5- 10.8 [phone] Count Red Blood Count 3.43 10^6/uL Low [...] % 0 N Comp Metabolic Panel 03/16/2017 [facility] Sodium 127 mmol/L Low 133- 145 [phone] Chloride 93 mmol/L Low 101-111 Co2 Carbon [...] 5 mmol/L N 2-11 Laboratory test 03/16/2017 [facility] C Reactive < 1.00 mg/L N < 5.00 15 finding [phone] Protein CBC Auto Diff 03/16/2017 [facility] White Blood 6.8 10^3/uL N 3.5- 10.8 [phone] Count Red Blood Count 3.39 10^6/uL Low [...] % 0.1 N Basic Metabolic Panel 11/24/2016 [facility] Sodium 128 mmol/L Low 133 -145 [phone] Potassium 5.1 mmol/L High 3.5-5.0 Chloride 93 [...] N >60 16 Comp Metabolic Panel 10/03/2016 [facility] Sodium 127 mmol/L Low 133- 145 [phone] Potassium 5.1 mmol/L High 3.5-5.0 Chloride 94 [...] N >60 17 Lipid Profile (Trig/Chol/HDL) 10/03/2016 [facility] Triglycerides 78 mg /dL N [phone] Cholesterol 188 mg/dL N 19 HDL Cholesterol 95.0 mg/dL N 20 LDL Cholesterol 77 mg/dL N 21 Laboratory test 10/03/2016 [facility] Creatine 73 U/L N 10-223 finding [phone] Kinase(CK) Basic Metabolic 09/22/2016 [facility] Sodium 128 mmol/L Low 133-145 Panel [phone] Potassium 4.8 mmol/L N 3.5-5.0 Chloride 92 [...] N >60 22 Basic Metabolic Panel 09/19/2016 [facility] Sodium 130 mmol/L Low 133 -145 [phone] Potassium 5.0 mmol/L N 3.5-5.0 Chloride 95 [...] N >60 23 Basic Metabolic Panel 09/18/2016 [facility] Sodium 127 mmol/L Low 133 -145 24 [phone] Potassium 5.1 mmol/L High 3.5-5.0 Chloride 92 [...] N >60 25 Laboratory test finding 09/12/2016 [facility] Inr/Protime 0.86 Low 0.89-1.11 [phone] Partial Thrombo Time PTT 32.0 seconds N 26.0-36.3 CBC Auto Diff 09/12/2016 [facility] White Blood 11.4 10^3/uL High 3.5 -10.8 [phone] Count Red Blood Count 3.91 10^6/uL Low [...] % 0 N Laboratory test finding 09/12/2016 [facility] Lactic Acid 1.1 mmol/L N 0.5-2.0 26 [phone] Comp Metabolic Panel 09/12/2016 [facility] Potassium 3.8 mmol/L N 3.5 -5.0 [phone] Chloride 83 mmol/L Low 101-111 Co2 Carbon [...] 9 mmol/L N 2-11 Laboratory test 09/12/2016 [facility] TSH (Thyroid 1.22 mcIU/mL N 0.34-5.60 finding [phone] Stim Horm) Free T4 (Free Thyroxine) 1.15 ng/dL High 0.61-1.12 C Reactive Protein 2.29 mg/L N < 5.00 29 Erythrocyte Sed Rate 50 mm/Hr High 0-30 Urinalysis Profile 09/12/2016 [facility] Urine Color Yellow N [phone] Urine Appearance Clear N Urine Specific [place] 1.011 N 1.010-1.030 Urine pH 7.0 N 5-9 Urine Urobilinogen Negative N Negative Urine Ketones Trace Abnormal Negative Urine Protein Negative N Negative Urine Leukocytes Negative N Negative Urine Blood Negative N Negative Urine Nitrite Negative N Negative Urine Bilirubin Negative N Negative Urine Glucose Negative N Negative Laboratory test 09/12/2016 [facility] Blood Culture SEE RESULT BELOW 30 finding [phone] Osmolality Serum 250 mOsm/kg Low 275 - 295 31 Laboratory test 07/03/2016 [facility] Wound SEE RESULT 32 finding [phone] Culture/Sensi BELOW Laboratory test 06/13/2016 [facility] Epifix 18 SEE RESULTS 33, 34 finding [phone] BELO <SEE NOTE> Laboratory test 06/07/2016 [facility] Epifix 18 SEE RESULTS 35 finding [phone] BELO <SEE NOTE> CBC Auto Diff 02/21/2016 [facility] White Blood Count 7.2 10^3/uL N 3.5-8 [phone] 0.8 Red Blood Count 3.48 10^6/uL Low [...] % 0.2 N Comp Metabolic Panel 02/21/2016 [facility] Sodium 133 mmol/L N 133- 145 [phone] Potassium 4.9 mmol/L N 3.5-5.0 Chloride 99 [...] N >60 36 Laboratory test finding 02/21/2016 [facility] Vancomycin Trough 14.5 g/mL N [phone] C Reactive Protein 6.18 mg/L High < 5.00 37 TSH (Thyroid Stim Horm) 3.78 mcIU/mL N 0.34-5.60 Laboratory test 01/10/2016 [facility] Wound Culture/Sensi SEE RESULT 38, 39 finding [phone] BELOW Tissue (BX) Culture & Gram St SEE RESULT BELOW 40 Anaerobic Culture SEE RESULT BELOW 41 Acid Fast Culture & Smear SEE RESULT BELOW 42 Fungal Cult Other Sources SEE RESULT BELOW 43 Laboratory test 01/10/2016 [facility] Mycobacterial See Comment N 44 finding [phone] Culture Basic Metabolic 01/10/2016 [facility] Sodium 131 mmol/L Low 133-1 Panel [phone] Potassium 4.2 mmol/L N 3.5-5.0 Chloride [...] N >60 45 CBC Auto Diff 01/10/2016 [facility] White Blood Count 9.0 10^3/uL N 3.5-10.8 [phone] Red Blood Count 4.07 10^6/uL N 4.0-5.4 [...] Cells % 0.1 N Laboratory test 01/10/2016 [facility] C Reactive 2.90 mg/L N < 5.00 46 finding [phone] Protein CBC Auto Diff 11/24/2015 [facility] White Blood 5.4 10^3/uL N 3.5- 10.8 [phone] Count Red Blood Count 3.66 10^6/uL Low [...] % 0.1 N Comp Metabolic Panel 11/24/2015 [facility] Sodium 127 mmol/L Low 133- 145 [phone] Potassium 4.7 mmol/L N 3.5-5.0 Chloride 93 [...] N >60 47 Lipid Profile (Trig/Chol/HDL) 11/24/2015 [facility] Triglycerides 67 mg /dL N 48 [phone] Cholesterol 158 mg/dL N 49 HDL Cholesterol 87.6 mg/dL N 50 LDL Cholesterol 57 mg/dL N 51 Laboratory test finding 11/24/2015 [facility] Magnesium 2.0 mg/dL N 1.9-2.7 [phone] Creatine Kinase(CK) 192 U/L N 10-223 Laboratory test 10/29/2014 [facility] TSH (Thyroid 1.82 N 0.34-5.60 finding [phone] Stim Horm) ?IU/mL Laboratory test 07/14/2014 [facility] TSH (Thyroid 1.08 IU/mL N 0.34- 5.60 52, 53 finding [phone] Stimulating Horm) Free T3 3.50 pg/mL N 2.5-3.9 54 Free T4 0.87 ng/mL N 0.61-1.12 55 Comp Metabolic Panel 07/14/2014 [facility] Sodium 133 mmol/L N 133- 145 [phone] Potassium 4.9 mmol/L N 3.5-5.0 Chloride 97 [...] N >60 56 CBC Auto Diff 07/14/2014 [facility] White Blood Count 5.7 10^3/uL N 4.8-10.8 [phone] Red Blood Count 4.11 10^6/uL N 4.0-5.4 [...] % 0.2 N Lipid Profile (Trig/Chol/HDL) 07/14/2014 [facility] Triglycerides 61 mg /dL N 57 [phone] Cholesterol 208 mg/dL N 58 HDL Cholesterol 111.3 mg/dL N 59 LDL Cholesterol 85 mg/dL N 60 Vitamin D, 25 07/14/2014 [facility] 25-Hydroxy Vitamin D2 <4.0 ng/mL N Hydroxy [phone] 25-Hydroxy Vitamin D3 11 ng/mL N 25-Hydroxy Vitamin D Total 11 ng/mL Abnormal 61 Creatinine 05/18/2014 [facility] Creatinine 0.70 mg/dL N 0.51-0.95 [phone] Egfr Non- 85.1 N >60 Egfr 109.4 N >60 62 Laboratory test 05/18/2014 [facility] Blood Urea Nitrogen 9 mg/dL N 6 -24 finding [phone] Laboratory test 05/18/2014 [facility] Creatine Kinase 74 U/L N 10- 223 finding [phone] Lipid Profile 05/18/2014 [facility] Triglycerides 100 mg/dL N 63 (Trig/Chol/HDL) [phone] Cholesterol 199 mg/dL N 64 HDL Cholesterol 92.6 mg/dL N 65 LDL Cholesterol 86 mg/dL N 66 Comp Metabolic Panel 05/18/2014 [facility] Sodium 130 mmol/L Low 133- 145 [phone] Potassium 5.1 mmol/L High 3.5-5.0 Chloride 97 [...] N >60 67 CBC Auto Diff 05/18/2014 [facility] White Blood Count 8.5 10^3/uL N 4.8-10.8 [phone] Red Blood Count 4.13 10^6/uL N 4.0-5.4 [...] Bilirubin - Ua Ketones - Ua Specific Gustine 1.005 Ua Blood - Ua PH 6.0 Ua Protein - Ua Urobilinogen - Ua Nitrite - Ua Leukocytes - Basic Metabolic Panel 12/11/2013 [facility] Sodium 130 mmol/L Low 133 -145 [phone] Potassium 4.6 mmol/L N 3.7-5.6 Chloride 96 [...] N >60 68 CBC No Diff 12/11/2013 [facility] White Blood Count 8.2 10^3/uL N 4.8 -10.8 [phone] Red Blood Count 3.75 10^6/uL Low 4.0-5.4 [...] um3 Low 7.4-10.4 Comp Metabolic Panel 10/22/2013 [facility] Sodium 134 mmol/L 133- 145 [phone] Potassium 5.0 mmol/L 3.7-5.6 Chloride 98 mmol/L [...] 98.0 >60 69 Lipid Profile (Trig/Chol/HDL) 10/22/2013 [facility] Triglycerides 81 mg /dL 70 [phone] Cholesterol 204 mg/dL 71 HDL Cholesterol 94.3 mg/dL 72 LDL Cholesterol 94 mg/dL 73 Laboratory test 10/22/2013 [facility] Creatine Kinase 100 U/L 10- 223 74 finding [phone] Basic Metabolic 04/17/2013 [facility] Sodium 134 mmol/L 133-145 Panel [phone] Potassium 4.5 mmol/L 3.5-5.0 Chloride 98 mmol/L Low 101-111 Co2 Carbon Dioxide 28.0 mmol/L 22-32 Anion Gap 8.0 mmol/L 2-11 Glucose 137 mg/dL High 70-100 Blood Urea Nitrogen 10 mg/dL 6-24 Creatinine 0.60 mg/dL 0.50-1.40 BUN/Creatinine Ratio 16.7 8-20 Calcium 9.7 mg/dL 8.1-9.9 Egfr Non- 102.0 >60 Egfr 131.1 >60 75 Comp Metabolic Panel 03/10/2013 [facility] Sodium 133 mmol/L 133- 145 [phone] Potassium 5.1 mmol/L High 3.5-5.0 Chloride 98 [...] Egfr 109.8 >60 76 Lipid Profile 03/10/2013 [facility] Triglycerides 53 mg/dL 40-200 (Trig/Chol/HDL) [phone] Cholesterol 195 mg/dL Less than 200 HDL Cholesterol 108 mg/dL High 40-60 77 Cholesterol/HDL Ratio 1.8 Average 1-4.44 LDL Cholesterol 76.4 Less Than 100 78 Laboratory test 03/10/2013 [facility] Creatine Kinase 95 U/L 0-200 79 finding [phone] Surgical 02/24/2013 [facility] S RUN DATE: 80 Pathology [phone] 02/25/ <SEE NOTE> Laboratory test 11/26/2012 [facility] TSH (Thyroid 1.95 0.34-5.60 finding [phone] Stimulating Horm) miu/mL Hepatitis C Antibody Nonreactive Nonreactive Laboratory test 10/15/2012 [facility] Creatine Kinase 103 U/L 0-200 81 finding [phone] Lipid Profile 10/15/2012 [facility] Triglycerides 127 mg/dL 40-200 (Trig/Chol/HDL) [phone] Cholesterol 237 mg/dL High Less than 200 HDL Cholesterol 102 mg/dL High 40-60 82 Cholesterol/HDL Ratio 2.3 Average 1-4.44 LDL Cholesterol 109.6 mg/dL High Less Than 100 83 Comp Metabolic Panel 10/15/2012 [facility] Sodium 135 mmol/L 133- 145 [phone] Potassium 4.7 mmol/L 3.5-5.0 Chloride 100 mmol/L [...] 161.9 >60 84 Laboratory test finding 03/11/2012 [facility] Creatine Kinase 83 U/L 0-200 [phone] Lipid Profile 03/11/2012 [facility] Triglycerides 56 mg/dL 40-200 (Trig/Chol/HDL) [phone] Cholesterol 204 mg/dL High Less than 200 85 HDL Cholesterol 113 mg/dL High 40-60 86 Cholesterol/HDL Ratio 1.8 AVERAGE 1-4.44 LDL Cholesterol 79.8 mg/dL Less Than 100 Comp Metabolic Panel 03/11/2012 [facility] Sodium 136 mmol/L 133- 145 [phone] Potassium 5.0 mmol/L 3.5-5.0 Chloride 100 mmol/L [...] Egfr 110.1 >60 88 Laboratory test 12/11/2011 [facility] CPK (Creatine 98 U/L 0-170 finding [phone] Kinase) TSH 1.79 MIU/ML 0.34-5.60 Lipid Profile 12/11/2011 [facility] Triglyceride 67 mg/dL 40-200 (Trig/Chol/HDL) [phone] Cholesterol 186 mg/dL Less Than 200 89 High Density Lipoprotein 108 mg/dL High 40-60 90 Cholesterol/HDL Ratio 1.72 AVERAGE 1-4.44 Low Density Lipoprotein 65 mg/dL Less Than 100 91 Comp Metabolic Panel 12/11/2011 [facility] Sodium 134 mmol/L Low 135- 145 [phone] Potassium 5.1 mmol/L High 3.5-5.0 Chloride 97 [...] 131.6 > 60 94 Laboratory test 10/05/2011 [facility] CPK (Creatine 110 U/L 0-170 finding [phone] Kinase) Lipid Profile 10/05/2011 [facility] Triglyceride 66 mg/dL 40-200 (Trig/Chol/HDL) [phone] Cholesterol 261 mg/dL High Less Than 200 95 High Density Lipoprotein 132 mg/dL High 40-60 96 Cholesterol/HDL Ratio 1.98 AVERAGE 1-4.44 Low Density Lipoprotein 116 mg/dL High Less Than 100 97 Comp Metabolic Panel 10/05/2011 [facility] Sodium 133 mmol/L Low 135- 145 [phone] Potassium 4.7 mmol/L 3.5-5.0 Chloride 100 mmol/L [...] 131.6 > 60 100 Manual Differential 10/05/2011 [facility] Polysegmented Neutrophil 44 % 38-83 [phone] Lymphocyte 34 % 25-47 Monocyte 8 % 0-13 Eosinophil 12 % High 0-6 Basophil 1 % 0-2 Atypical Lymph 1 % 0-6 Absolute Neutrophil Count 2.10 Macrocytosis SLIGHT CBC Auto Diff 10/05/2011 [facility] White Blood Count 4.8 CUMM 4.8- 10.8 [phone] Red Cell Count 3.73 CUMM Low 4.2-5.4 Hemoglobin 13.1 g/dL 12.0-16.0 Hematocrit 38 % 35-47 Mean Corpuscular Volume 101 um3 High 79-97 Mean Corpuscular Hemoglob 35 pg High 27-31 Mean Corpuscular HGB Cone 35 g/dL 32-36 Redcell Distribution WDTH 14 % 10.5-15 Platelet Count 305 CUMM 150-450 Mean Platelet Volume 7.9 um3 7.4-10.4 101 Laboratory test 10/05/2011 [facility] TSH 4.19 MIU/ML 0.34-5.60 finding [phone] Laboratory test 04/27/2011 [facility] CPK (Creatine 105 U/L 0-170 finding [phone] Kinase) TSH 3.05 MIU/ML 0.34-5.60 Lipid Profile 04/27/2011 [facility] Triglyceride 94 mg/dL 40-200 (Trig/Chol/HDL) [phone] Cholesterol 207 mg/dL High Less Than 200 102 High Density Lipoprotein 123 mg/dL High 40-60 103 Cholesterol/HDL Ratio 1.68 AVERAGE 1-4.44 Low Density Lipoprotein 65 mg/dL Less Than 100 104 Comp Metabolic Panel 04/27/2011 [facility] Sodium 136 mmol/L 135- 145 [phone] Potassium 4.5 mmol/L 3.5-5.0 Chloride 102 mmol/L [...] 25 U/L 14-54 Ast (Sgot) 35 U/L 12- eGFR Non- 102.7 > 60 eGFR 132.0 > 60 107 Laboratory test finding 05/30/2010 [facility] TSH 1.59 MIU/ML 0.34- 5.60 [phone] Comp Metabolic Panel 05/30/2010 [facility] Sodium 137 mmol/L 135- 145 [phone] Potassium 4.9 mmol/L 3.5-5.0 Chloride 99 mmol/L [...] 110.9 > 60 110 Lipid Profile 05/30/2010 [facility] Triglyceride 122 mg/dL 40-200 (Trig/Chol/HDL) [phone] Cholesterol 209 mg/dL High Less Than 200 111 High Density Lipoprotein 107 mg/dL High 40-60 112 Cholesterol/HDL Ratio 1.95 AVERAGE 1-4.44 Low Density Lipoprotein 78 mg/dL Less Than 100 113 Laboratory test 05/30/2010 [facility] CPK (Creatine 100 U/L 0-170 finding [phone] Kinase) CBC With Electronic 05/30/2010 [facility] [facility] White Blood Count 4.9 CUMM 4.8-10.8 Diff [phone] Red Cell Count 3.87 CUMM Low 4.2-5.4 Hemoglobin 13.0 g/dL 12.0-16.0 Hematocrit 38 % 35-47 Mean Corpuscular Volume 99 um3 High 79-97 Mean Corpuscular Hemoglob 34 pg High 27-31 Mean Corpuscular HGB Cone 34 g/dL 32-36 Redcell Distribution WDTH 14 % 10.5-15 Platelet Count 361 CUMM 150-450 Mean Platelet Volume 6.8 um3 Low 7.4-10.4 114 Manual Differential 05/30/2010 [facility] Polysegmented Neutrophil 50 % 38-83 [phone] Lymphocyte 35 % 25-47 Monocyte 6 % 0-13 Eosinophil 6 % 0-6 Atypical Lymph 3 % 0-6 Absolute Neutrophil Count 2.4 Anisocytosis SLIGHT Macrocytosis SLIGHT Comp Metabolic Panel 07/06/2009 [facility] Sodium 132 mmol/L Low 135- 145 [phone] Potassium 5.0 mmol/L 3.5-5.0 Chloride 99 mmol/L [...] 110.9 > 60 119 Lipid Profile 07/06/2009 [facility] Triglyceride 50 mg/dL 40-200 (Trig/Chol/HDL) [phone] Cholesterol 196 mg/dL Less Than 200 120 High Density Lipoprotein 118 mg/dL High 40-60 121 Cholesterol/HDL Ratio 1.66 AVERAGE 1-4.44 Low Density Lipoprotein 68 mg/dL Less Than 100 122 Laboratory test 07/06/2009 [facility] CPK (Creatine 100 U/L 0-170 finding [phone] Kinase) Laboratory test 04/20/2009 [facility] TSH 1.63 0.34-5.60 finding [phone] MIU/ML Comp Metabolic 07/30/2008 [facility] Sodium 138 mmol/L 135-145 Panel [phone] Potassium 4.9 mmol/L 3.5-5.0 Chloride 104 mmol/L [...] (Sgot) 33 U/L 12-42 Lipid Profile 07/30/2008 [facility] Triglyceride 82 mg/dL 40-200 (Trig/Chol/HDL) [phone] Cholesterol 226 mg/dL High Less Than 200 126 High Density Lipoprotein 125 mg/dL High 40-60 127 Cholesterol/HDL Ratio 1.81 AVERAGE 1-4.44 Low Density Lipoprotein 85 mg/dL Less Than 100 128 Laboratory test 07/30/2008 [facility] CPK (Creatine 93 U/L 0-170 finding [phone] Kinase) Laboratory test 05/13/2007 [facility] TSH 1.19 MIU/ML 0.34-5.60 finding [phone] Laboratory test 01/17/2006 [facility] TSH 1.92 MIU/ML 0.34-5.60 finding [phone] CBC With Manual 01/02/2005 [facility] White Blood 5.4 CUMM 4.8-10.8 Diff [phone] Count Anisocytosis 1+ Hematocrit 42 % 35-47 [...] WDTH 14 % 10.5-15 Laboratory test 01/02/2005 [facility] Erythrocyte Sed Rate 1 MM/HR 0 -30 finding [phone] Rheumatoid Factor < 20.0 IU/mL Less Than 20 CBC With Electronic 01/02/2005 [facility] White Blood 5.4 CUMM 4.8- 10.8 Diff [phone] Count Hematocrit 42 % 35-47 Hemoglobin 14.1 g/dL 12.0-16.0 Mean Corpuscular HGB Cone 34 g/dL 32-36 Mean Corpuscular Hemoglob 34 pg High 27-31 Mean Corpuscular Volume 99 um3 High 79-97 Mean Platelet Volume 7.7 um3 7.4-10.4 Platelet Count 394 CUMM 150-450 Red Cell Count 4.20 CUMM 4.2-5.4 Redcell Distribution WDTH 14 % 10.5-15 Laboratory test finding 01/02/2005 [facility] TSH 2.68 MIU/ML 0.34- 5.60 [phone] Laboratory test finding 06/21/2004 [facility] TSH 2.39 MIU/ML 0.34- 5.60 [phone] Laboratory test finding 12/15/2003 [facility] TSH 1.40 [phone] 1 Pt aware of results. SL 2 [...] [address]: Silvano Bolanos MD Acct: [id number] Unit: [id number] AGE: 67 Location: [facility] Re04/08/18 SEX: F Status: REG REF SPEC: [id number] KELLI: 04/08/18 [facility] [address]: Silvano Bolanos MD REQ: [id number] RECD: 04/09/18 STATUS: JAYSHREE BYRD DR: Robin Vu DO _ ORDERED: TP IMAGE ANALYS, HPV/Thin Prep COMMENTS: [id number] Negative for Intraepithelial lesion or Malignancy Date [...] Specimen: 06/18/15 Signed by and Reported on: JOSLYN Morrison (ASCP) 0162 This Pap test was evaluated with the assistance of the ThinPrep Test Imaging System. Due to cytologic findings at the accounting specialist microscope, comprehensive manual rescreening by a Glaze Supervisor may be required. The Pap Smear is [...] years. END OF REPORT DEPARTMENT OF PATHOLOGY, [address] [place] [address] Lionel Massey M.D. Director [facility] # [id number] 4 cc pmd 5 cc pmd 6 Acute inflammation: >10.00 7 [id number] SEE RESULT BELOW Name: YULIET GARCIA : [address]: María Elena NEAL Acct: [id number] Unit: [id number] AGE: 66 Location: [facility] Re05/15/17 SEX: F Status: REG REF SPEC: [id number] KELLI: 05/15/[address]: María Elena NEAL REQ: [id number] RECD: 05/15/17 STATUS: COMP _ SOURCE: NASAL SPDESC: ORDERED: MRSA PCR-Nasal COMMENTS: [id number] Procedure Result Reported Site MRSA PCR (Nasal) Final 05/15/17- 2104 ML Organism 1 MRSA NEGATIVE * ML - MAIN LAB ([facility]) . END OF REPORT * ML=Testing performed at Main Lab DEPARTMENT OF PATHOLOGY, [address] [place] [address] Lionel Massey M.D. Director [facility] # [id number] 9 RESULT: No apparent monoclonal protein on serum electrophoresis. Test Performed by: [facility] [address] [address] 10 Acute inflammation: >10.00 11 cc pmd [...] 5 Kidney failure <15 (or dialysis) 24 [id number] 25 Because ethnic data is not always [...] 5 Kidney failure <15 (or dialysis) 26 [facility] Severe Sepsis and Septic Shock Management Bundle [...] dialysis) 28 Critical Result NA:119 Called to [id number] at: 14:17:17 by:[id number] Read back by:[email or web address] 29 Acute inflammation: >10.00 30 SEE RESULT BELOW Name: YULIET GARCIA : [address]: John Sanchez MD Acct: [id number] Unit: [id number] AGE: 66 Location: [place] [address] Re09/13/16 Dis: 09/14/16 SEX: F Status: DIS IN SPEC: [id number] KELLI: 09/12/16 [facility] [address]: Hamilton Barnhart MD REQ: [id number] RECD: 09/12/16 STATUS: ANASTACIO BYRD DR: Robin Vu DO _ SOURCE: BLOOD,VENO SPDESC: ORDERED: Blood Cult Procedure Result Reported Site Aerobic Culture Bottle Final 09/17/16- 1932 ML No Growth Day 5 Anaerobic Culture Bottle Final 09/17/16- 1932 ML No Growth Day 5 * ML - [facility] ([facility]) . END OF REPORT * ML=Testing performed at Main Lab DEPARTMENT OF PATHOLOGY, [address] [place] [address] Lionel Massey M.D. Director [facility] # [id number] 31 Test Performed by: [address] [address] 32 SEE RESULT BELOW Name: YULIET GARCIA : [address]: Brittanie Couch MD Acct: [id number] Unit: [id number] AGE: 66 Location: [place] Re07/03/16 SEX: F Status: REG REF SPEC: [id number] KELLI: 07/03/16-1210 [facility] [address]: Brittanie Couch MD REQ: [id number] RECD: 07/03/16 STATUS: ANASTACIO BYRD DR: Robin Vu DO _ SOURCE: BACK SPDESC: ORDERED: Culture Stain QUERIES: Specimen Description LUMBAR [...] performed at Main Lab DEPARTMENT OF PATHOLOGY, [address] [place] [address] Lionel Massey M.DRenae [facility] # [id number] Patient: JOSEROMAN Silvana [id number] (Continued) Specimen: [id number] Collected: 07/03/16 Received: 07/03/16 (Continued) Procedure Result Reported Site Wound/Misc Culture Final (continued) 07/05/16- 850 1. MRSA (continued) M.I.C. RX --------- ------ * Minocycline - Deduced S Trimethoprim/Sulfamethoxazole <=10 S Vancomycin 1 S Imipenem-Deduced R * Ampicillin/Sulbactam-Deduced R Cefazolin-Deduced R * These antibiotics are not available in the [facility] Formulary Contact the Microbiology Department for any additional antibiotic reporting. * ML - MAIN LAB ([facility]) . END OF REPORT * ML=Testing performed at Main Lab DEPARTMENT OF PATHOLOGY, [address] [place] [address] Lionel Massey M.D. Director [facility] # [id number] 33 FU 34 SEE RESULTS BELOW [id number] EPIFIX 18 TRANSFUSED 06/14/16 0953 35 SEE RESULTS BELOW [id number] EPIFIX 18 TRANSFUSED 06/07/16 0919 36 Because [...] [address]: Johan Cannon MD Acct: [id number] Unit: [id number] AGE: 65 Location: [place] Re01/10/16 SEX: F Status: REG SDC SPEC: [id number] KELLI: 01/10/16 [facility] [address]: Johan Cannon MD REQ: [id number] RECD: 01/10/16 STATUS: RES ASYA DR: Robin Vu DO _ SOURCE: WOUND SPDESC:ABSCESS ORDERED: Anaerobic Cult, Culture Stain COMMENTS: EPIDURAL ABCESS L2-L5 Procedure Result Reported Site Anaerobic Culture PENDING Wound/Misc Gram Stain Final 01/10/16- 1413 ML 1+ Neutrophils No Organisms Seen Wound/Misc Culture PENDING * ML - MAIN LAB ([facility]) . END OF REPORT * ML=Testing performed at Main Lab DEPARTMENT OF PATHOLOGY, [address] [place] [address] Lionel Massey M.D. Director [facility] # [id number] 40 SEE RESULT BELOW Name: YULIET GARCIA : [address]: Johan Cannon MD Acct: [id number] Unit: [id number] AGE: 65 Location: [facility] 335-01 Re01/10/16 Dis: 01/12/16 SEX: F Status: DIS IN SPEC: [id number] KELLI: 01/10/16-13[address] [facility] [address]: Johan Cannon MD REQ: [id number] RECD: 01/10/16368 STATUS: ANASTACIO BYRD DR: Robin Vu DO _ SOURCE: TISSUE SPDESC:LUMBAR ORDERED: Tissue Cult/GS COMMENTS: EPIDURAL ABCESS L2-L5 Procedure Result Reported Site Tissue Gram Stain Final 01/10/16- 1534 ML 4+ Epithelial Cells 1+ Neutrophils No Organisms Seen Preparation By Cytospin Smear Tissue Culture Final 01/14/16- 944 ML No Growth Day 4 * ML - MAIN LAB ([facility]) . END OF REPORT * ML=Testing performed at Main Lab DEPARTMENT OF PATHOLOGY, [address] [place] [address] Lionel Massey M.D. Director [facility] # [id number] 41 SEE RESULT BELOW Name: YULIET GARCIA : [address]: Johan Cannon MD Acct: [id number] Unit: [id number] AGE: 65 Location: [facility] 335- Re01/10/16 Dis: 01/12/16 SEX: F Status: DIS IN SPEC: [id number] KELLI: 01/10/[address]: Johan Cannon MD REQ: [id number] RECD: 01/10/16 STATUS: ANASTACIO BYRD DR: Robin Vu DO _ SOURCE: WOUND SPDESC:ABSCESS ORDERED: Anaerobic Cult, Culture Stain COMMENTS: EPIDURAL ABCESS L2-L5 Procedure Result Reported Site Anaerobic Culture Final 01/14/16- 943 ML No Growth Day 4 Wound/Misc Gram Stain Final 01/10/16- 1413 ML 1+ Neutrophils No Organisms Seen Wound/Misc Culture Final 01/14/16- 943 ML No Growth Day 4 * ML - MAIN LAB ([facility]) . END OF REPORT * ML=Testing performed at Main Lab DEPARTMENT OF PATHOLOGY, [address] [place] [address] Lionel Massey M.D. Director [facility] # [id number] 42 SEE RESULT BELOW Name: YULIET GARCIA : [address]: Johan Cannon MD Acct: [id number] Unit: [id number] AGE: 65 Location: [facility] 335-01 Re01/10/16 SEX: F Status: ADM IN SPEC: [id number] KELLI: 01/10/16-13[address] [facility] [address]: Johan Cannon MD REQ: [id number] RECD: 01/11/16907 STATUS: RES CARSON DR: Robin Vu DO _ SOURCE: WOUND SPDESC:LUMBAR ORDERED: Fungal - Other, AFB Cult Smear Procedure Result Reported Site Fungal Cult - Other Sources PENDING Acid Fast Stain - Direct Final 01/12/16- 823 ML AFB Smear Result No Acid Fast Bacillus Present (Negative) Preparation By Cytospin Smear Due to limited sensitivity of the smear, results should be used as an adjunct in evaluating the patient's status and cultural examination is highly recommended for diagnosis. * ML - [facility] ([facility]) . END OF REPORT * ML=Testing performed at Main Lab DEPARTMENT OF PATHOLOGY, [address] [place] [address] Lionel Massey M.D. Director [facility] # [id number] 43 SEE RESULT BELOW Name: YULIET GARCIA : [address]: Johan Cannon MD Acct: [id number] Unit: [id number] AGE: 65 Location: [facility] 335-01 Re01/10/16 Dis: 01/12/16 SEX: F Status: DIS IN SPEC: [id number] KELLI: 01/10/16-[address]: Johan Cannon MD REQ: [id number] RECD: 01/11/16 STATUS: ANASTACIO BYRD DR: Robin [...] highly recommended for diagnosis. * ML - [facility] ([facility]) . END OF REPORT * ML=Testing performed at [facility] DEPARTMENT OF PATHOLOGY, [address] [place] [address] Lionel Massey M.D. Director [facility] # [id number] 44 SOURCE: SPINE, LUMBAR WOUND MYCOBACTERIAL CULTURE FINAL No growth after 60 days of incubation. Test Performed by: [place] [address] Emergency Vehicle Operator: Clyde Pitts II, M.D., Ph.D. 45 Because [...] levels within this range. Test Performed by: [facility] - [address] [address] Emergency Vehicle Operator: Zheng Estrada M.D. 62 Because ethnic data [...] mg/dL 79 FASTING 80 RUN DATE: 02/25/13 [facility] LAB LIVE PAGE 1 RUN TIME: [address] [place], [place] [address] Specimen Inquiry Name: YULIET GARCIA : [address]: Yusuf Flores MD Acct: [id number] Unit: [id number] AGE: 62 Location: ENDO Re02/24/13 SEX: F Status: REG REF SPEC: [id number] KELLI: 02/24/13- [facility] DR: Yusuf Flores MD REQ: [id number] RECD: 02/24/13-1447 STATUS: JAYSHREE BYRD DR: Adam Arnold MD [...] Signed (signature on file) Vaishali Mireles MD 1750 END OF REPORT * ML=Testing performed at Main Lab DEPARTMENT OF PATHOLOGY, [address] [place] [address] Lionel Massey M.D. Director [facility] Permit #[id number] 81 Fasting 82 HDL Interpretation: Undesirable: High [...] has been shown to interfere with the Jendrassik-Weweantic method for measuring total bilirubin. Samples from [...] 5 Kidney failure <15 (or dialysis) 101 [facility] 102 CHOLESTEROL INTERPRETATION: Desirable: Less than 200 [...] has been shown to interfere with the Jendrassik-Weweantic method for measuring total bilirubin. Samples from [...] change was based on recommendations from the [place] [employer]. 117 Please note change in reference range effective 07 . 118 A metabolite of Naproxen, O-desmethylnaproxen, has been shown to interfere with the Jendrassik-Weweantic method for measuring total bilirubin. Samples from [...] change was based on recommendations from the [place]. 125 Please note change in [...] MG/DL Procedures Date Code Description Status 07/04/2017 60966 X-Ray Chest 2 V TC Completed 07/04/2017 59526 X-Ray Chest 2 V pc Completed 06/14/2015 96340 Dexa Bone Density Study One Or More Sites Axial Completed Skeleton 09/25/2013 80989 Omt 3 To 4 Body Regions Involved Completed 02/09/2013 91535945 Colonoscopy Completed 09/09/2012 73320087 Mammogram Completed 03/12/2009 62026 Inhalation Therapy Completed 03/12/2009 29314 Vital Capacity, Total Completed Encounters Type Date Location Provider Dx Diagnosis Office Visit 06/07/2018 Main Office Robin Vu, J01.00 Acute maxillary 2:00p D.O. sinusitis, unspecified R06.2 Wheezing R05 Cough [...] Visit 11/08/2017 8:00a Main Office María Elena Real J44.9 Chronic obstructive P.A. pulmonary disease, unspecified F17.210 Nicotine dependence, cigarettes, uncomplicated M16.9 Osteoarthritis of hip, unspecified Z86.14 Personal history of methicillin resis staph infection F32.9 Major depressive disorder, single episode, unspecified Z01.818 Encounter for other preprocedural examination E78.00 Pure hypercholesterolemia, unspecified Office Visit 07/04/2017 11:00a Main Office Marlys Turner PA R04.2 Hemoptysis J44.9 Chronic obstructive pulmonary disease, unspecified F17.210 Nicotine dependence, cigarettes, uncomplicated Z86.14 Personal history of methicillin resis staph infection Office Visit 05/15/2017 8:00a Main Office María Elena Real M16.9 Osteoarthritis of P.A. 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 Lumbar Region 722.10 Intervertebral Disc Displacement Lumbar W/O Myelopathy Office Visit 09/25/2013 1:15p Main Office Robin Vu D.ORenae 724.2 Lumbago 729.1 Myalgia & Myositis Unspec [...] Lumbago Office Visit 02/05/2013 1:15p Main Office Robin Vu, E906.4 Bite Nonvenomous D.O. Arthropod 916.4 Injury Superficial Insect Bite Hip Thigh Leg Ankle NV No Inf Office Visit 11/25/2012 1:30p Main Office [place], 244.0 Hypothyroidism Denita Medina Postsurgical 300.02 Anxiety [...] Office Visit 10/05/2010 1:45p Main Office Adam Arnold, 496 COPD Airway M.D. Obstruction Chronic Not Class Elsewhere 305.1 Tobacco Use Disorder V76.51 Special Screening For Malignant Neoplasms Colon 796.2 Blood Pressure Reading Elevated W/O Hypertension Office Visit 06/21/2010 3:00p Main Office Adam Arnold, 466.0 Bronchitis Acute M.D. 305.1 Tobacco Use Disorder 244.0 Hypothyroidism Postsurgical 796.2 Blood Pressure Reading Elevated W/O Hypertension Office Visit 05/10/2009 4:45p Main Office Adam Arnold, 719.68 Joint Symptoms M.D. Other Other Spec Sites Office Visit 03/12/2009 5:00p Main Office Adam Arnold, 466.0 Bronchitis Acute M.D. 305.1 Tobacco Use Disorder 244.0 Hypothyroidism Postsurgical Office Visit 06/17/2007 3:30p Main Office Adam Arnold, 790.6 Abnormal Blood M.D. Chemistry Other 272.0 Hypercholesterolemia Pure 305.1 Tobacco Use Disorder Office Visit 11/09/2006 1:45p Main Office Adam Arnold, 466.0 Bronchitis Acute M.D. 477.9 Rhinitis Allergic Cause Unspec 305.1 Tobacco Use Disorder Office Visit 11/01/2006 1:15p Main Office vitor 491.21 Bronchitis Obstructive Chronic W/Acute Exacerbation 305.1 Tobacco Use Disorder Office Visit 10/27/2006 10:30a Main Office Clyde Herrera, 466.0 Bronchitis Acute M.D. 305.1 Tobacco Use Disorder Office Visit 12/26/2005 4:00p Main Office Adam Arnold, 300.02 Anxiety Disorder M.D. Generalized 796.2 Blood Pressure Reading Elevated W/O Hypertension 244.0 Hypothyroidism Postsurgical V76.51 Special Screening For Malignant Neoplasms Colon V07.2 Prophylactic Immunotherapy V06.1 Bwrkixzcec-Wkfbjpx-Jxjucfjx Combined (DTaP) Office Visit 09/26/2005 4:00p Main [...] Reading Elevated W/O Hypertension Plan of Treatment 09/11/2018 - Robin Vu D.ORenaeR91.8 Other nonspecific abnormal finding of lung fieldComments:Called and discussed left upper lobe finding with Dr. Douglas he has old reports without change in the plural thickening that is stable.
--- NOTE | 2018-09-30 22:02 | ED ---
Complex/Multi-Sys Presentation - HPI Summary HPI Summary: A 68 y/o F presents to ED referred by her doctor for her elevated potassium onset today. Patient had a DEXA scan this AM as well as blood work. Dr. Vu , PCP, called her and told her to go to the ED because her potassium was too high (6.1). Associated sx: palpitations, tremulous in the AM. Denies v/d, recent illness. Pt ambulates with a walker. PMHx: two back surgeries, bilat hip replacement, spinal compression fx, cardiac stent. Denies supplements or vitamins. - History Of Current Complaint Chief Complaint: EDGeneral Time Seen by Provider: 09/30/18 21:53 Hx Obtained From: Patient Onset/Duration: Sudden Onset, Still Present Timing: Constant Severity Currently: Moderate Severity Initially: Moderate Associated Signs And Symptoms: Positive: Palpitations, Other - pos: mildly tremulous. Negative: Nausea, Vomiting - Allergies/Home Medications Allergies/Adverse Reactions: Allergies Allergy/AdvReac Type Severity Reaction Status Date / Time lisinopril Allergy Intermediate See Comment Verified 09/11/18 13:21 losartan Allergy Intermediate See Comment Verified 09/11/18 13:21 seasonal Allergy Mild Sneezing Uncoded 09/11/18 13:21 PMH/Surg Hx/FS Hx/Imm Hx Previously Healthy: No Endocrine/Hematology History: Reports: Hx Thyroid Disease - ON MEDS Denies: Hx Diabetes Cardiovascular History: Reports: Hx Hypertension - ON MEDS, STATES WELL CONTROLLED, Hx Valvular Heart Disease, Other Cardiovascular Problems/Disorders - AORTIC REGURT Denies: Hx Angina, Hx Coronary Artery Disease, Hx Myocardial Infarction, Hx Pacemaker/ICD Respiratory History: Reports: Hx Chronic Obstructive Pulmonary Disease (COPD) Denies: Hx Asthma History: Denies: Hx Dialysis, Hx Renal Disease Musculoskeletal History: Reports: Hx Arthritis - NECK. HANDS, Other Musculoskeletal History - 07/12/2015 INFECTION IN SPINE/WOUND Denies: Hx Rheumatoid Arthritis, Hx Osteoporosis Sensory History: Reports: Hx Contacts or Glasses Denies: Hx Hearing Aid Opthamlomology History: Reports: Hx Contacts or Glasses Psychiatric History: Reports: Hx Anxiety - ON MEDS Denies: Hx Panic Disorder - Cancer History Cancer Type, Location and Year: hodgkins in 80's Hx Chemotherapy: No Hx Radiation Therapy: No - hodgkins disease- RT to chest/uper neck - Surgical History Surgery Procedure, Year, and Place: 2006 THYROIDECTOMY [facility]. 1981 SPLEENECTOMY [facility]. 12/16/13 [facility] laminectomy L5/S1. [facility] DISCECTOMY L2-L3. bilateral hip replacement 2018. heart stent Hx Anesthesia Reactions: No Infectious Disease History: No Infectious Disease History: Reports: Hx of Known/Suspected MRSA - On continues antibiotic r/t surgery in 01/2016 Denies: Hx Shingles, Hx Tuberculosis, History Other Infectious Disease, Traveled Outside the [place] in Last 30 Days - Family History Known Family History: Positive: Other - Negative: malignant hyperthermia, anesthesia reaction, breast cancer - Social History Occupation: Employed Full-time Lives: Alone Alcohol Use: Daily Alcohol Amount: 2 GLASSES/NIGHT Hx Substance Use: No Substance Use Type: Reports: None Hx Tobacco Use: Yes Smoking Status (MU): Current Every Day Smoker Type: Cigarettes Amount Used/How Often: LESS THEN 1PPD 40 YRS Have You Smoked in the Last Year: Yes Review of Systems Negative: Fever Positive: Palpitations, Other - pos: elevated potassium value Negative: Vomiting, Nausea All Other Systems Reviewed And Are Negative: Yes Physical Exam - Summary Physical Exam Summary: Appearance: Well-appearing, Well-nourished, lying in bed comfortable Skin: Warm, dry, no obvious rash Eyes: sclera anicteric, no conjunctival pallor ENT: mucous membranes moist Neck: deferred Respiratory: No signs of respiratory distress Cardiovascular: Appears well perfused, pulses are nml Abdomen: deferred Musculoskeletal: Moving all 4 extremities without obvious discomfort Neurological: Awake and alert, mentation is normal, speech is fluent and appropriate Psychiatric: affect is normal, does not appear anxious or depressed Triage Information Reviewed: Yes Vital Signs On Initial Exam: Initial Vitals Temp Pulse Resp BP Pulse Ox 98.3 F 95 18 124/65 98 09/30/18 21:25 09/30/18 21:25 09/30/18 21:25 09/30/18 21:25 09/30/18 21:25 Vital Signs Reviewed: Yes Diagnostics - Vital Signs Vital Signs Temp Pulse Resp BP Pulse Ox 09/30/18 21:25 98.3 F 95 18 124/65 98 - Laboratory Result Diagrams: 09/30/18 22:01 09/30/18 22:01 Lab Statement: Any lab studies that have been ordered have been reviewed, and results considered in the medical decision making process. 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 Re-Evaluation - Re-Evaluation 1 Re-Evaluation Time: 22:44 Comment: Discussing results with pt and plans for discharge. Complex Multi-Symp Course/Dx Course Of Treatment: Pt is a 68 y/o F referred by Dr. Vu, PCP, for an elevated potassium value today (6.1). Potassium in ED is WNL. 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 Will discharge patient home. - Diagnoses Provider Diagnoses: Abnormal laboratory test result Discharge - Sign-Out/Discharge Documenting (check all that apply): Patient Departure - DC Patient Received Moderate/Deep Sedation with Procedure: No - Discharge Plan Condition: Good Disposition: HOME Patient Education Materials: Hyperkalemia (ED) Referrals: Robin Vu DO [Primary Care Provider] - If Needed Additional Instructions: Your potassium level tonight is in the normal range at 4.9, so nothing further need be done. I'm not sure why it was measured high earlier. Most likely there was some hemolysis in the sample that was drawn that artificially elevated it. - Billing Disposition and Condition Condition: GOOD Disposition: Home - Attestation Statements Document Initiated by Julisa: Yes Documenting Scribe: Carmelo Varela Provider For Whom Scribe is Documenting (Include Credential): Dr. Patricio Harper MD Scribe Attestation: I, lexa Monacoibed for Dr. Patricio Harper MD on 10/01/18 at 0432. Scribe Documentation Reviewed: Yes Provider Attestation: The documentation as recorded by the Carmelo coronado accurately reflects the service I personally performed and the decisions made by me, Dr. Patricio Harper MD Status of Scribe Document: Viewed
[2018-09-30 22:09] LABS: Hematocrit 35 % (33-41); Hemoglobin 11.9 g/dL (12.0-16.0); Mean Corpuscular HGB Conc 34 g/dL (31-36); Mean Corpuscular Hemoglobin 33 pg (27-31); Mean Corpuscular Volume 97 fL (80-97); Mean Platelet Volume 6.9 fL (7.4-10.4); Platelet Count 356 10^3/uL (150-450); Red Blood Count 3.64 10^6 /uL (3.70-4.87); Red Cell Distribution Width 14 % (10.5-15); White Blood Count 7.1 10^3/uL (3.5-10.8)
[2018-09-30 22:20] LABS: ABS Basophils 0.1 10^3/ul (0-0.2); ABS Eosinophils 0.3 10^3/ul (0-0.6); ABS Lymphocytes 1.1 10^3/ul (1.0-4.8); ABS Monocytes 0.8 10^3/ul (0-0.8); ABS Neutrophils 4.7 10^3/ul (1.5-7.7); ABS Nucleated RBC 0 10^3/ul; Eosinophil % 4.2 %; Lymphocyte % 15.7 %; Nucleated Red Blood Cells % 0.1
[2018-09-30 22:25] LABS: Albumin 4.6 g/dL (3.2-5.2); Albumin/Globulin Ratio 1.5 (1-3); BUN/Creatinine Ratio 13.2 (8-20); Calcium 9.7 mg/dL (8.6-10.3); EGFR African American 62.8 (>60); EGFR Non-African American 51.9 (>60); Globulin 3.1 g/dL (2-4); Potassium 4.9 mmol/L (3.5-5.0); Total Bilirubin 0.4 mg/dL (0.2-1.0); Total Protein 7.7 g/dL (6.4-8.9)
[2018-09-30 22:51] VITALS: BP 134/64
== END 2018-09-30 22:50 | disposition home or self-care (01) ==
LOC: ED 21:20
DX: R79.9 Abnormal finding of blood chemistry, unspecified (principal); D64.9 Anemia, unspecified; I10 Essential (primary) hypertension; I25.10 Atherosclerotic heart disease of native coronary artery without angina pectoris; F41.9 Anxiety disorder, unspecified; J44.9 Chronic obstructive pulmonary disease, unspecified; Z85.71 Personal history of Hodgkin lymphoma; F17.210 Nicotine dependence, cigarettes, uncomplicated
CPT/HCPCS: 36415; 80053; 85025; 93005; 99282

== ENCOUNTER 2020-12-28 14:29 | Inpatient (IN) ==
[2020-12-28 16:26] LABS: Hematocrit 33 % (35-47); Hemoglobin 11.5 g/dL (12.0-16.0); Mean Corpuscular HGB Conc 34 g/dL (31-36); Mean Corpuscular Hemoglobin 35 pg (27-31); Mean Corpuscular Volume 100 fL (80-97); Mean Platelet Volume 7.1 fL (7.4-10.4); Platelet Count 484 10^3/uL (150-450); Red Blood Count 3.32 10^6 /uL (3.70-4.87); Red Cell Distribution Width 14 % (10-15); White Blood Count 13.3 10^3/uL (3.5-10.8)
[2020-12-28 16:29] LABS: ABS Lymphocytes 0.4 10^3/ul (1.0-4.8); ABS Monocytes 1.6 10^3/ul (0-0.8); ABS Neutrophils 11.1 10^3/ul (1.5-7.7); Eosinophil % 0.4 %; Lymphocyte % 3.3 %
[2020-12-28 16:38] LABS: Activated Partial Thrombo Time 31.9 seconds (26.0-38.0); INR 1.07 (0.86-1.15)
[2020-12-28 16:41] LABS: Albumin/Globulin Ratio 1.1 (1-3); C Reactive Protein 160.57 mg/L (<8.01); EGFR Non-African American 97.5 (>60); Globulin 3.5 g/dL (2-4); Potassium 3.6 mmol/L (3.5-5.0); Total Bilirubin 0.4 mg/dL (0.2-1.0); Total Protein 7.5 g/dL (6.4-8.9)
[2020-12-28 16:47] LABS: Rapid COVID-19 Molecular Undetected (Undetected)
[2020-12-28] MEDS ORDERED: Levalbuterol 1.25MG/0.5ML NEB.SOL INH ONE (17:23)
[2020-12-28] MEDS ORDERED: Naloxone 0.4 mg VIAL 0.4 mg/ml 1 ml VIAL IV PRN (17:28)
[2020-12-28] MEDS: HYDROmorphone 1 MG/1 ML SYRINGE IV PRN ×5 (19:59→20:40)
[2020-12-28] MEDS ORDERED: Polyethylene Glycol 3350 BTL 238 GM BTL PO PRN (20:14)
[2020-12-28] MEDS ORDERED: HYDROmorphone 1 MG/1 ML SYRINGE IV PRN (20:47)
[2020-12-28] MEDS: NS 0.9% 1000 ml BAG 1,000 ML IV SCH (21:48)
[2020-12-28] MEDS ORDERED: cefTRIAXone 1 gm/50 mL NS BAG 1 GM/50 ML BAG IVPB SCH (22:00)
[2020-12-28] MEDS ORDERED: Vancomycin 1,000 MG in NS 0.9% 250 ml 250 ML IVPB ONE (22:11)
[2020-12-28] MEDS ORDERED: Vancomycin per Pharmacy 1 EA NOTE FOLLOW UP PRN (22:12)
[2020-12-28 23:28] LABS: Potassium 3.5 mmol/L (3.5-5.0)
[2020-12-29] MEDS: oxyCODONE/Acetamin 5/325 mg TAB PO PRN ×3 (01:38→16:17)
[2020-12-29] MEDS: Albuterol HFA INHALER 8 gm MDI INH PRN (01:49)
[2020-12-29 06:27] LABS: ABS Lymphocytes 0.1 10^3/ul (1.0-4.8); ABS Neutrophils 8.3 10^3/ul (1.5-7.7); Eosinophil % 0.2 %; Hematocrit 29 % (35-47); Hemoglobin 9.9 g/dL (12.0-16.0); Lymphocyte % 0.7 %; Mean Corpuscular HGB Conc 34 g/dL (31-36); Mean Corpuscular Hemoglobin 34 pg (27-31); Mean Corpuscular Volume 101 fL (80-97); Mean Platelet Volume 7.1 fL (7.4-10.4); Platelet Count 427 10^3/uL (150-450); Red Blood Count 2.87 10^6 /uL (3.70-4.87); Red Cell Distribution Width 14 % (10-15); White Blood Count 8.4 10^3/uL (3.5-10.8)
[2020-12-29 06:40] LABS: C Reactive Protein 141.45 mg/L (<8.01); Calcium 7.6 mg/dL (8.6-10.3); EGFR Non-African American 97.5 (>60); Potassium 3.2 mmol/L (3.5-5.0)
[2020-12-29] MEDS: Nicotine PATCH 21 MG/24 HR PATCH TRANSDERM SCH (09:12)
[2020-12-29] MEDS: Aspirin EC 81 mg TAB.EC (enteric coated) PO SCH (09:13)
[2020-12-29] MEDS: NS 0.9% 1000 ml BAG 1,000 ML IV SCH (10:54)
[2020-12-29] MEDS: Vancomycin 1000 MG in NS 0.9% 250 ML IVPB SCH ×2 (12:02→23:40)
[2020-12-29] MEDS ORDERED: Potassium Chlor 20 meq TAB.ER PO ONE ×2 (13:30→13:45)
[2020-12-29 13:40] LABS: Magnesium 1.6 mg/dL (1.9-2.7)
[2020-12-29] MEDS ORDERED: Gadoteridol (CONTRAST) 279.3 MG/ML 10 ML IV ONE (18:16)
[2020-12-29] MEDS ORDERED: Magnesium Sulfate IV 3 GM in NS 0.9% 100 ml BAG 100 ML IVPB ONE (18:57)
[2020-12-29 20:40] LABS: TSH Ultra Thyroid Stim Horm 2.31 mcIU/mL (0.34-5.60)
[2020-12-29] MEDS ORDERED: NS 0.9% 100 ml BAG 100 ML ONE (21:20)
[2020-12-29] MEDS: Mometasone/Formoter 200/5 MDI INH SCH (23:32)
[2020-12-30] MEDS: oxyCODONE/Acetamin 5/325 mg TAB PO PRN ×3 (00:40→22:43)
[2020-12-30] MEDS: NS 0.9% 1000 ml BAG 1,000 ML IV SCH (03:57)
[2020-12-30 06:19] LABS: Hematocrit 28 % (35-47); Hemoglobin 9.5 g/dL (12.0-16.0); Mean Corpuscular HGB Conc 34 g/dL (31-36); Mean Corpuscular Hemoglobin 34 pg (27-31); Mean Corpuscular Volume 101 fL (80-97); Mean Platelet Volume 7.2 fL (7.4-10.4); Platelet Count 449 10^3/uL (150-450); Red Blood Count 2.77 10^6 /uL (3.70-4.87); Red Cell Distribution Width 14 % (10-15); White Blood Count 14.1 10^3/uL (3.5-10.8)
[2020-12-30 06:43] LABS: Calcium 7.4 mg/dL (8.6-10.3); EGFR African American 87.6 (>60); EGFR Non-African American 72.4 (>60); Magnesium 2.9 mg/dL (1.9-2.7); Potassium 3.6 mmol/L (3.5-5.0)
[2020-12-30] MEDS ORDERED: Potassium Chlor 10 meq TAB PO SCH (09:00)
[2020-12-30] MEDS: Aspirin EC 81 mg TAB.EC (enteric coated) PO SCH (09:24)
[2020-12-30] MEDS: Nicotine PATCH 21 MG/24 HR PATCH TRANSDERM SCH (09:24)
[2020-12-30] MEDS: Mometasone/Formoter 200/5 MDI INH SCH ×2 (09:25→19:42)
[2020-12-30] MEDS ORDERED: Vancomycin Trough Check NOTE FOLLOW UP ONE (11:30)
[2020-12-30 12:08] LABS: EGFR African American 88.9 (>60); EGFR Non-African American 73.4 (>60)
[2020-12-30 12:39] LABS: Vancomycin Trough 18.4 mcg/mL
[2020-12-30] MEDS: Vancomycin 1000 MG in NS 0.9% 250 ML IVPB SCH (12:47)
[2020-12-31 06:49] LABS: Hematocrit 27 % (35-47); Hemoglobin 9.3 g/dL (12.0-16.0); Mean Corpuscular HGB Conc 34 g/dL (31-36); Mean Corpuscular Hemoglobin 35 pg (27-31); Mean Corpuscular Volume 100 fL (80-97); Mean Platelet Volume 7.4 fL (7.4-10.4); Platelet Count 459 10^3/uL (150-450); Red Cell Distribution Width 14 % (10-15); White Blood Count 11.6 10^3/uL (3.5-10.8)
[2020-12-31 07:04] LABS: Calcium 7.8 mg/dL (8.6-10.3); EGFR African American 81.6 (>60); EGFR Non-African American 67.4 (>60); Potassium 3.3 mmol/L (3.5-5.0)
[2020-12-31] MEDS: Nicotine PATCH 21 MG/24 HR PATCH TRANSDERM SCH (10:10)
[2020-12-31] MEDS: Aspirin EC 81 mg TAB.EC (enteric coated) PO SCH (10:11)
[2020-12-31] MEDS: Mometasone/Formoter 200/5 MDI INH SCH ×2 (10:12→19:21)
[2020-12-31] MEDS ORDERED: Potassium Chlor 20 meq TAB.ER PO ONE (10:34)
[2020-12-31 10:53] LABS: Magnesium 2.3 mg/dL (1.9-2.7)
[2020-12-31] MEDS: oxyCODONE/Acetamin 5/325 mg TAB PO PRN ×2 (11:04→22:28)
[2020-12-31] MEDS: Vancomycin 1000 MG in NS 0.9% 250 ML IVPB SCH (13:00)
[2021-01-01 05:30] LABS: Hematocrit 28 % (35-47); Hemoglobin 9.5 g/dL (12.0-16.0); Mean Corpuscular HGB Conc 34 g/dL (31-36); Mean Corpuscular Hemoglobin 34 pg (27-31); Mean Corpuscular Volume 100 fL (80-97); Platelet Count 468 10^3/uL (150-450); Red Blood Count 2.78 10^6 /uL (3.70-4.87); Red Cell Distribution Width 14 % (10-15); White Blood Count 7.7 10^3/uL (3.5-10.8)
[2021-01-01 05:46] LABS: Calcium 7.9 mg/dL (8.6-10.3); EGFR African American 90.2 (>60); EGFR Non-African American 74.5 (>60); Potassium 3.1 mmol/L (3.5-5.0)
[2021-01-01] MEDS ORDERED: Potassium Chlor 20 meq TAB.ER PO ONE (06:59)
[2021-01-01] MEDS: Mometasone/Formoter 200/5 MDI INH SCH ×2 (07:03→19:20)
[2021-01-01] MEDS: Aspirin EC 81 mg TAB.EC (enteric coated) PO SCH (08:19)
[2021-01-01] MEDS: Nicotine PATCH 21 MG/24 HR PATCH TRANSDERM SCH (08:20)
[2021-01-01] MEDS: Vancomycin 1000 MG in NS 0.9% 250 ML IVPB SCH (11:56)
[2021-01-01] MEDS: Polyethylene Glycol 3350 17 GM PACKET PO PRN (11:57)
[2021-01-01] MEDS: oxyCODONE/Acetamin 5/325 mg TAB PO PRN ×2 (11:57→20:56)
[2021-01-02 05:35] LABS: Calcium 8.4 mg/dL (8.6-10.3); EGFR African American 78.3 (>60); EGFR Non-African American 64.7 (>60); Potassium 3.5 mmol/L (3.5-5.0)
[2021-01-02] MEDS: Mometasone/Formoter 200/5 MDI INH SCH ×2 (07:20→19:38)
[2021-01-02] MEDS: Nicotine PATCH 21 MG/24 HR PATCH TRANSDERM SCH (08:39)
[2021-01-02] MEDS: Aspirin EC 81 mg TAB.EC (enteric coated) PO SCH (08:40)
[2021-01-02] MEDS: Vancomycin 1000 MG in NS 0.9% 250 ML IVPB SCH (13:02)
[2021-01-02] MEDS: oxyCODONE/Acetamin 5/325 mg TAB PO PRN (17:43)
[2021-01-02] MEDS: Polyethylene Glycol 3350 17 GM PACKET PO PRN (21:50)
[2021-01-03 06:33] LABS: Hematocrit 31 % (35-47); Hemoglobin 10.7 g/dL (12.0-16.0); Mean Corpuscular HGB Conc 35 g/dL (31-36); Mean Corpuscular Hemoglobin 35 pg (27-31); Mean Corpuscular Volume 99 fL (80-97); Mean Platelet Volume 7.8 fL (7.4-10.4); Platelet Count 518 10^3/uL (150-450); Red Blood Count 3.08 10^6 /uL (3.70-4.87); Red Cell Distribution Width 14 % (10-15); White Blood Count 7.1 10^3/uL (3.5-10.8)
[2021-01-03 06:48] LABS: Calcium 8.5 mg/dL (8.6-10.3); EGFR African American 88.9 (>60); EGFR Non-African American 73.4 (>60); Potassium 3.1 mmol/L (3.5-5.0)
[2021-01-03] MEDS ORDERED: Potassium Chlor 20 meq TAB.ER PO ONE ×2 (07:00→16:26)
[2021-01-03] MEDS: Mometasone/Formoter 200/5 MDI INH SCH ×3 (07:05→21:42)
[2021-01-03] MEDS ORDERED: KCL 20 MEQ/100 ML IVPREMIX 20 MEQ/100 ML BAG IV ONE (07:44)
[2021-01-03] MEDS: Nicotine PATCH 21 MG/24 HR PATCH TRANSDERM SCH (08:34)
[2021-01-03] MEDS: Aspirin EC 81 mg TAB.EC (enteric coated) PO SCH (08:35)
[2021-01-03] MEDS: oxyCODONE/Acetamin 5/325 mg TAB PO PRN ×2 (08:35→13:20)
[2021-01-03] MEDS ORDERED: Vancomycin Trough Check NOTE FOLLOW UP ONE (11:30)
[2021-01-03] MEDS: Vancomycin 1000 MG in NS 0.9% 250 ML IVPB SCH (13:05)
[2021-01-03 21:12] LABS: Albumin 2.3 g/dL (3.4-4.7); Albumin/Globulin Ratio 0.81; Gamma Globulin 0.8 g/dL (0.6-1.6); Total Protein(PEP) 5.1 g/dL (6.3 - 7.9)
[2021-01-03] MEDS: Albuterol HFA INHALER 8 gm MDI INH PRN (21:20)
[2021-01-03] MEDS: Polyethylene Glycol 3350 17 GM PACKET PO PRN (21:40)
[2021-01-04 08:22] LABS: C Reactive Protein 33.99 mg/L (<8.01)
[2021-01-04] MEDS: Aspirin EC 81 mg TAB.EC (enteric coated) PO SCH (09:00)
[2021-01-04] MEDS ORDERED: Vancomycin 1,250 MG in NS 0.9% 250 ml 250 ML IVPB SCH (09:00)
[2021-01-04] MEDS: Nicotine PATCH 21 MG/24 HR PATCH TRANSDERM SCH (09:01)
[2021-01-04] MEDS: oxyCODONE/Acetamin 5/325 mg TAB PO PRN ×2 (09:06→14:45)
[2021-01-04] MEDS: Mometasone/Formoter 200/5 MDI INH SCH (09:08)
[2021-01-04] MEDS ORDERED: DAPTOmycin SDV 500 MG in NS 0.9% 50 ML 50 ML IVPB SCH (10:00)
[2021-01-04] MEDS ORDERED: DAPTOmycin 500 MG/10 ML SYRINGE IVPB SCH (10:00)
[2021-01-04 11:51] VITALS: BP 112/40
[2021-01-04 21:17] LABS: Albumin 9.9 mg/dL; Albumin/Globulin Ratio 0.43; Gamma Globulin 6.9 mg/dL; Protein,Total, Random Urine 33 mg/dL
[2021-01-04 23:45] LABS: Albumin 2.3 g/dL (3.4-4.7); Albumin/Globulin Ratio 0.78; Gamma Globulin 0.8 g/dL (0.6-1.6); Total Protein(PEP) 5.3 g/dL (6.3 - 7.9)
[2021-01-07] MEDS ORDERED: Vancomycin Trough Check NOTE FOLLOW UP ONE (08:30)
== END 2021-01-04 15:10 | disposition home or self-care (01) | DRG 92 ==
LOC: ED 14:29 → SSU 21:42
PROVIDERS: ADMIT Hospitalist; ATTEND Internal Medicine

== ENCOUNTER 2021-09-16 10:55 | Observation (INO) ==
[~2021-09-16 10:55] MED LIST: Buffered Lidocaine 1% SYRIN 1 ml INTRADERM ONE; Dexamethasone IV 4 MG/ML VIAL 1 ml VIAL ONE; Lactated Ringers 1000 ml BAG 1,000 ML IV SCH; Lidocaine 2% PF 5 ML VIAL ONE; Midazolam 2 mg/2 ml VIAL 1 mg/ml 2 ml VIAL (2 mg) ONE; Propofol 10 MG/ML 20 ML BTL ONE; Rocuronium 50 mg VIAL 10 mg/ml 5 ml VIAL (50 mg) ONE; fentaNYL 100 mcg/2 ml 50 MCG/ML VIAL ONE
[2021-09-16] MEDS ORDERED: Methylene Blue 0.5 % 50 MG/10 ML AMP IV ONE (11:06)
[2021-09-16] MEDS ORDERED: Mineral Oil Sterile, TOPICAL 25 ML BTL ONE (11:13)
[2021-09-16] MEDS ORDERED: ceFAZolin VIAL 1 GM in NS 0.9% 50 ML 50 ML IVPB ONE (12:00)
[2021-09-16] MEDS ORDERED: HYDROmorphone 0.5 MG/0.5 ML SYRINGE ONE (12:40)
[2021-09-16] MEDS ORDERED: Lidocaine 2% w/ EPI 1:200,000 MPF 20 ML SDV VIAL ONE (12:43)
[2021-09-16] MEDS ORDERED: fentaNYL 100 mcg/2 ml 50 MCG/ML VIAL IV PRN (13:17)
[2021-09-16] MEDS ORDERED: Ondansetron 4 mg VIAL 2 MG/ML 2 ml VIAL IV PRN (13:17)
[2021-09-16] MEDS ORDERED: Metoclopramide 5 MG/ML VIAL (10 mg) IV PRN (13:17)
[2021-09-16] MEDS ORDERED: Naloxone 0.4 mg VIAL 0.4 mg/ml 1 ml VIAL IV PRN (13:17)
[2021-09-16] MEDS ORDERED: Ondansetron 4 mg VIAL 2 MG/ML 2 ml VIAL ONE (14:35)
[2021-09-16] MEDS ORDERED: Phenylephrine 40 mcg/mL 10mL (400mcg) SYRINGE ONE (15:04)
[2021-09-16] MEDS ORDERED: Propofol 10 MG/ML 20 ML BTL ONE (15:13)
[2021-09-16] MEDS ORDERED: HYDROmorphone 1 MG/1 ML SYRINGE ONE (16:43)
[2021-09-16] MEDS ORDERED: Acetaminophen IV 1 GM/100ML 100 ML IV ONE (16:43)
[2021-09-16] MEDS: HYDROmorphone 1 MG/1 ML SYRINGE IV PRN ×2 (16:45→17:17)
[2021-09-16] MEDS ORDERED: Morphine 2 MG/ML SYRINGE IV PRN (17:03)
[2021-09-16] MEDS: Mometasone/Formoter 100/5 MDI INH SCH (23:08)
[2021-09-17 05:53] LABS: ABS Lymphocytes 0.5 10^3/ul (1.0-4.8); ABS Monocytes 0.4 10^3/ul (0-0.8); ABS Neutrophils 6.6 10^3/ul (1.5-7.7); Hematocrit 34 % (35-47); Hemoglobin 11.4 g/dL (12.0-16.0); Lymphocyte % 6.6 %; Mean Corpuscular HGB Conc 34 g/dL (31-36); Mean Corpuscular Hemoglobin 33 pg (27-31); Mean Corpuscular Volume 98 fL (80-97); Mean Platelet Volume 7.4 fL (7.4-10.4); Platelet Count 358 10^3/uL (150-450); Red Blood Count 3.42 10^6 /uL (3.70-4.87); Red Cell Distribution Width 13 % (10-15); White Blood Count 7.6 10^3/uL (3.5-10.8)
[2021-09-17 06:02] LABS: Calcium 9.8 mg/dL (8.6-10.3); eGFR CKD-EPI 97.9 (>60)
[2021-09-17 06:06] LABS: Potassium 5.3 mmol/L (3.5-5.0)
[2021-09-17] MEDS: Mometasone/Formoter 100/5 MDI INH SCH (07:52)
[2021-09-17] MEDS ORDERED: oxyCODONE/Acetamin 5/325 mg TAB PO PRN (08:37)
[2021-09-17 12:03] VITALS: BP 132/45
== END 2021-09-17 12:26 | disposition home or self-care (01) ==
LOC: OR 10:55 → SSU 10:55
PROVIDERS: ADMIT Otolaryngology; ATTEND Internal Medicine

== ENCOUNTER 2023-03-08 08:11 | Observation (INO) ==
[2023-03-08 09:13] LABS: Hematocrit 22.8 % (35-45); Hemoglobin 7.8 g/dL (11.5-14.3); Mean Corpuscular Hemoglobin 30.6 pg (27-33); Mean Corpuscular Hgb Conc 34.4 g/dL (31-36); Mean Platelet Volume 7.9 fL (7.5-11.2); Platelet Count 197 10^3/uL (150-450); Red Blood Count 2.56 10^6/uL (3.63-4.92); Red Cell Distribution Width 14.3 % (12-17); White Blood Count 1.1 10^3/uL (3.8-11.8)
[2023-03-08 09:15] LABS: Activated Partial Thrombo Time 24.5 seconds (26.0-38.0); INR 1.05 (0.83-1.13)
[2023-03-08 09:22] LABS: Albumin 3.6 g/dL (3.2-5.2); Albumin/Globulin Ratio 1.2 (1-3); Creatinine, Serum 0.42 mg/dL (0.51-0.95); Potassium 4.1 mmol/L (3.5-5.0); Total Bilirubin 0.3 mg/dL (0.2-1.0); Total Protein 6.6 g/dL (6.4-8.9); eGFR CKD-EPI 105.2 (>60)
[2023-03-08 09:45] LABS: ABS Lymphocytes 0.2 10^3/uL (1.0-4.8); ABS Monocytes 0.1 10^3/uL (0.0-0.9); ABS Nucleated RBC 0.01 10^3/ul; Eosinophil % 0.2 %; Lymphocyte % 15.3 %; Nucleated Red Blood Cells % 0.7 /100 WBC (0.0-0.4)
[2023-03-08 09:55] LABS: Burr Cells 3+
[2023-03-08 10:19] LABS: ABS Neutrophils 0.8 10^3/uL (1.5-7.6)
[2023-03-08] MEDS ORDERED: Pantoprazole VIAL 40 MG VIAL IV ONE (10:42)
[2023-03-08] MEDS ORDERED: Lactated Ringers 1000 ml BAG 1,000 ML IV ONE (11:24)
[2023-03-08] MEDS ORDERED: NS 0.9% 1000 ml BAG 1,000 ML IV ONE (11:25)
[2023-03-08] MEDS: Mometasone/Formoter 200/5 MDI INH SCH ×2 (14:39→19:26)
[2023-03-08] MEDS: oxyCODONE/Acetamin 5/325 mg TAB PO PRN (14:45)
[2023-03-08] MEDS ORDERED: Lorazepam PYXIS KEY PRN (15:30)
[2023-03-08] MEDS ORDERED: LORazepam 2 mg VIAL 1 ml IV PUSH ONE (15:31)
[2023-03-08 17:25] LABS: Hematocrit 15.4 % (35-45); Hemoglobin 5.3 g/dL (11.5-14.3)
[2023-03-08] MEDS ORDERED: Pantoprazole VIAL 40 MG VIAL IV SCH (21:00)
[2023-03-08] MEDS: buPROPion SR 100 mg TAB.SR PO SCH ×2 (23:01→23:03)
[2023-03-08] MEDS: Chlorhexidine MOUTHWASH 0.12% 15 ML UDC SWISH SPIT SCH (23:02)
[2023-03-08 23:18] LABS: Hematocrit 20.1 % (35-45); Hemoglobin 7.1 g/dL (11.5-14.3)
[2023-03-09 06:34] LABS: Hematocrit 26.1 % (35-45); Hemoglobin 9.4 g/dL (11.5-14.3); Mean Corpuscular Hemoglobin 32.6 pg (27-33); Mean Corpuscular Hgb Conc 36.1 g/dL (31-36); Mean Corpuscular Volume 90.3 fL (80-97); Mean Platelet Volume 8.1 fL (7.5-11.2); Platelet Count 119 10^3/uL (150-450); Red Blood Count 2.89 10^6/uL (3.63-4.92); Red Cell Distribution Width 14.4 % (12-17)
[2023-03-09 06:55] LABS: Calcium 8.2 mg/dL (8.6-10.3); Creatinine, Serum 0.38 mg/dL (0.51-0.95); Magnesium 1.5 mg/dL (1.9-2.7); Potassium 3.5 mmol/L (3.5-5.0); eGFR CKD-EPI 107.7 (>60)
[2023-03-09] MEDS ORDERED: Magnesium Sulfate IV 3 GM in NS 0.9% 100 ml BAG 100 ML IVPB ONE (07:07)
[2023-03-09] MEDS: oxyCODONE/Acetamin 5/325 mg TAB PO PRN (07:19)
[2023-03-09] MEDS: Chlorhexidine MOUTHWASH 0.12% 15 ML UDC SWISH SPIT SCH ×2 (07:21→21:39)
[2023-03-09] MEDS: Mometasone/Formoter 200/5 MDI INH SCH ×2 (07:22→19:29)
[2023-03-09 08:30] LABS: ABS Lymphocytes 0.2 10^3/uL (1.0-4.8); ABS Monocytes 0.2 10^3/uL (0.0-0.9); ABS Neutrophils 0.6 10^3/uL (1.5-7.6); Eosinophil % 0.4 %; Lymphocyte % 18.2 %
[2023-03-09] MEDS ORDERED: Cholecalciferol (VIT D3) 1,000 unit TAB PO SCH (09:00)
[2023-03-09] MEDS ORDERED: Polyethylene Glycol 3350 17 GM PACKET PO SCH (09:00)
[2023-03-09] MEDS ORDERED: Iohexol 350 (CONTRAST) 500 ML MDV IV ONE (10:07)
[2023-03-09] MEDS ORDERED: oxyCODONE 5 mg/5 ml ORAL.SOLN UDC PO PRN (11:31)
[2023-03-09 15:30] LABS: Hematocrit 27.5 % (35-45); Hemoglobin 9.9 g/dL (11.5-14.3)
[2023-03-09] MEDS: oxyCODONE/Acetamin 5/325 mg TAB PEG TUBE PRN (16:58)
[2023-03-09] MEDS: Nystatin TOP POWDER 15 GM BTL TOPICAL SCH ×2 (18:18→21:40)
[2023-03-09] MEDS: Albuterol HFA INHALER 8 gm MDI INH PRN (19:41)
[2023-03-10] MEDS: oxyCODONE/Acetamin 5/325 mg TAB PEG TUBE PRN ×2 (05:57→20:40)
[2023-03-10 06:20] LABS: Calcium 8.3 mg/dL (8.6-10.3); Creatinine, Serum 0.31 mg/dL (0.51-0.95); Magnesium 1.7 mg/dL (1.9-2.7); Potassium 3.5 mmol/L (3.5-5.0); eGFR CKD-EPI 113.1 (>60)
[2023-03-10 06:42] LABS: Acanthocytes 2+
[2023-03-10 06:45] LABS: Spherocytes 1+
[2023-03-10 06:46] LABS: Burr Cells 2+
[2023-03-10 07:11] LABS: ABS Lymphocytes 0.2 10^3/uL (1.0-4.8); ABS Monocytes 0.3 10^3/uL (0.0-0.9); ABS Neutrophils 0.4 10^3/uL (1.5-7.6); ABS Nucleated RBC 0.03 10^3/ul; Eosinophil % 0.5 %; Hematocrit 25.4 % (35-45); Hemoglobin 9.2 g/dL (11.5-14.3); Lymphocyte % 19.9 %; Mean Corpuscular Hemoglobin 32.6 pg (27-33); Mean Corpuscular Hgb Conc 36.2 g/dL (31-36); Mean Corpuscular Volume 90.1 fL (80-97); Mean Platelet Volume 8.2 fL (7.5-11.2); Nucleated Red Blood Cells % 3.5 /100 WBC (0.0-0.4); Platelet Count 116 10^3/uL (150-450); Red Blood Count 2.82 10^6/uL (3.63-4.92); Red Cell Distribution Width 14.2 % (12-17); White Blood Count 0.9 10^3/uL (3.8-11.8)
[2023-03-10 07:12] LABS: Howell Jolly Bodies Present
[2023-03-10] MEDS ORDERED: Magnesium Sulfate 2 gm BAG 2 GM/50 ML BAG IVPB ONE (07:22)
[2023-03-10] MEDS: Albuterol HFA INHALER 8 gm MDI INH PRN ×3 (07:40→22:21)
[2023-03-10] MEDS: Mometasone/Formoter 200/5 MDI INH SCH ×2 (07:40→19:32)
[2023-03-10] MEDS: Polyethylene Glycol 3350 17 GM PACKET PEG TUBE SCH (10:15)
[2023-03-10] MEDS: Cholecalciferol (VIT D3) 1,000 unit TAB PEG TUBE SCH (10:16)
[2023-03-10] MEDS: Nystatin TOP POWDER 15 GM BTL TOPICAL SCH ×3 (10:18→20:47)
[2023-03-10] MEDS: Chlorhexidine MOUTHWASH 0.12% 15 ML UDC SWISH SPIT SCH ×2 (10:19→20:40)
[2023-03-11] MEDS: oxyCODONE/Acetamin 5/325 mg TAB PEG TUBE PRN (06:29)
[2023-03-11 06:55] LABS: Hematocrit 28.4 % (35-45); Mean Corpuscular Hemoglobin 31.9 pg (27-33); Mean Corpuscular Hgb Conc 35.2 g/dL (31-36); Mean Corpuscular Volume 90.5 fL (80-97); Red Blood Count 3.14 10^6/uL (3.63-4.92); Red Cell Distribution Width 14.8 % (12-17); White Blood Count 1.1 10^3/uL (3.8-11.8)
[2023-03-11 07:21] LABS: Calcium 8.3 mg/dL (8.6-10.3); Creatinine, Serum 0.32 mg/dL (0.51-0.95); Magnesium 1.7 mg/dL (1.9-2.7); Potassium 3.4 mmol/L (3.5-5.0); eGFR CKD-EPI 112.3 (>60)
[2023-03-11] MEDS ORDERED: Magnesium Sulfate IV 3 GM in NS 0.9% 100 ml BAG 100 ML IVPB ONE (07:25)
[2023-03-11 07:35] LABS: ABS Lymphocytes 0.2 10^3/uL (1.0-4.8); ABS Monocytes 0.4 10^3/uL (0.0-0.9); ABS Nucleated RBC 0.05 10^3/ul; Eosinophil % 0.7 %; Lymphocyte % 18.3 %; Nucleated Red Blood Cells % 4.2 /100 WBC (0.0-0.4); Platelet Count 116 10^3/uL (150-450)
[2023-03-11 07:36] LABS: ABS Neutrophils 0.5 10^3/uL (1.5-7.6)
[2023-03-11] MEDS: Albuterol HFA INHALER 8 gm MDI INH PRN (07:43)
[2023-03-11] MEDS: Mometasone/Formoter 200/5 MDI INH SCH (07:44)
[2023-03-11] MEDS: Cholecalciferol (VIT D3) 1,000 unit TAB PEG TUBE SCH (08:52)
[2023-03-11] MEDS: Chlorhexidine MOUTHWASH 0.12% 15 ML UDC SWISH SPIT SCH (08:52)
[2023-03-11] MEDS: Nystatin TOP POWDER 15 GM BTL TOPICAL SCH (09:50)
[2023-03-11] MEDS: Polyethylene Glycol 3350 17 GM PACKET PEG TUBE SCH (09:51)
[2023-03-11 10:06] VITALS: BP 105/42
== END 2023-03-11 11:30 | disposition home or self-care (01) ==
LOC: EDHOLD 08:11 → ED 08:11 → SUATTDRO 10:38 → MEDTELE 03-09 10:36
PROVIDERS: ADMIT Internal Medicine; ATTEND Internal Medicine

== ENCOUNTER 2023-06-29 14:06 | Inpatient (IN) ==
[2023-06-29] MEDS ORDERED: LACTATED RINGERS SEPSIS IV ONE (15:18)
[2023-06-29] MEDS ORDERED: Albuterol/Ipratropium NEB.SOL (2.5/0.5 MG) 3 ML NEB.SOLN INH ONE (15:20)
[2023-06-29 15:45] LABS: Hematocrit 24.1 % (35-45); Hemoglobin 8.2 g/dL (11.5-14.3); Mean Corpuscular Hemoglobin 34.6 pg (27-33); Mean Corpuscular Hgb Conc 34.1 g/dL (31-36); Mean Corpuscular Volume 101.5 fL (80-97); Mean Platelet Volume 8.2 fL (7.5-11.2); Platelet Count 174 10^3/uL (150-450); Red Blood Count 2.38 10^6/uL (3.63-4.92); Red Cell Distribution Width 17.4 % (12-17); White Blood Count 2.9 10^3/uL (3.8-11.8)
[2023-06-29 15:56] LABS: Activated Partial Thrombo Time 37.5 seconds (26.0-38.0); INR 1.36 (0.83-1.13)
[2023-06-29 15:57] LABS: Influenza A Molecular POSITIVE (Negative)
[2023-06-29 16:00] LABS: Rapid COVID-19 Molecular Undetected (Undetected)
[2023-06-29 16:04] LABS: Albumin 2.9 g/dL (3.2-5.2); C Reactive Protein 243.78 mg/L (<8.01); Calcium 7.2 mg/dL (8.6-10.3); Creatinine, Serum 0.6 mg/dL (0.51-0.95); Globulin 2.8 g/dL (2-4); Total Bilirubin 0.5 mg/dL (0.2-1.0); Total Protein 5.7 g/dL (6.4-8.9); eGFR CKD-EPI 95.9 (>60)
[2023-06-29 16:26] LABS: ABS Lymphocytes 0.2 10^3/uL (1.0-4.8); ABS Monocytes 0.4 10^3/uL (0.0-0.9); ABS Neutrophils 2.3 10^3/uL (1.5-7.6); ABS Nucleated RBC 0.01 10^3/ul; Lymphocyte % 5.7 %; Nucleated Red Blood Cells % 0.4 %/100WBC (0.0-0.8)
[2023-06-29 16:30] LABS: Magnesium 1.4 mg/dL (1.9-2.7)
[2023-06-29] MEDS ORDERED: Oseltamivir SUSP ORALSYR 6 MG/ML PO ONE (16:30)
[2023-06-29] MEDS ORDERED: Potassium Chloride LIQUID 20 MEQ/15 ML LIQUID PO ONE (16:31)
[2023-06-29] MEDS ORDERED: Magnesium Sulfate 2 gm BAG 2 GM/50 ML BAG IVPB ONE (16:36)
[2023-06-29 17:02] LABS: Urine Appearance Cloudy; Urine Bilirubin Negative (Negative); Urine Blood 1+ (Negative); Urine Color Amber; Urine Glucose Negative (Negative); Urine Ketones Trace (Negative); Urine Nitrite Positive (Negative); Urine Protein 3+(>=500 mg/dL) (Negative); Urine Specific Gravity 1.019 (1.002-1.030); Urine Urobilinogen Positive (Negative)
[2023-06-29 17:28] LABS: Urine Bacteria 1+ (Absent); Urine Red Blood Cell Trace(0-2/hpf) (Absent); Urine White Blood Cell 1+(6-10/hpf) (Absent)
[2023-06-29] MEDS ORDERED: Nicotine PATCH 21 MG/24 HR PATCH TRANSDERM ONE (17:30)
[2023-06-29 17:46] LABS: High Sensitivity Troponin 1 Hr 175 pg/mL (<15)
[2023-06-29] MEDS ORDERED: cefTRIAXone 1 gm/50 mL D5W 1 GM/50 ML BAG IV ONE (17:49)
[2023-06-29] MEDS ORDERED: Azithromycin 500 mg/250 ml NS 500 MG/250 ML BAG IVPB ONE (20:00)
[2023-06-29] MEDS ORDERED: Iohexol 350 (CONTRAST) 500 ML MDV IV ONE (21:26)
[2023-06-29] MEDS ORDERED: Naloxone Nasal Spray 4 MG/0.1 ML NASAL.SPR INTRANASAL PRN (22:51)
[2023-06-29] MEDS ORDERED: Mometasone/Formoter 200/5 MDI INH PRN (23:34)
[2023-06-30] MEDS: Enoxaparin 40 MG/0.4 ML SYR SUBCUT SCH ×2 (01:24→23:32)
[2023-06-30 08:53] LABS: Hematocrit 24.8 % (35-45); Hemoglobin 8.5 g/dL (11.5-14.3); Mean Corpuscular Hemoglobin 34.8 pg (27-33); Mean Corpuscular Hgb Conc 34.4 g/dL (31-36); Mean Corpuscular Volume 101.1 fL (80-97); Mean Platelet Volume 8.3 fL (7.5-11.2); Platelet Count 175 10^3/uL (150-450); Red Blood Count 2.45 10^6/uL (3.63-4.92); Red Cell Distribution Width 17.2 % (12-17); White Blood Count 2.6 10^3/uL (3.8-11.8)
[2023-06-30] MEDS ORDERED: Piperacillin/Tazobac 3.375 BAG 3.375 GM/100 ML BAG IV ONE (09:37)
[2023-06-30 09:42] LABS: ABS Lymphocytes 0.2 10^3/uL (1.0-4.8); ABS Monocytes 0.4 10^3/uL (0.0-0.9); ABS Neutrophils 1.9 10^3/uL (1.5-7.6); ABS Nucleated RBC 0.01 10^3/ul; Calcium 8.3 mg/dL (8.6-10.3); Creatinine, Serum 0.54 mg/dL (0.51-0.95); Eosinophil % 0.1 %; Lymphocyte % 7.8 %; Magnesium 2.1 mg/dL (1.9-2.7); Nucleated Red Blood Cells % 0.5 %/100WBC (0.0-0.8); Potassium 3.7 mmol/L (3.5-5.0); eGFR CKD-EPI 98.4 (>60)
[2023-06-30 09:57] LABS: Folate > 20.00 ng/mL (5.90-24.80)
[2023-06-30 09:58] LABS: Vitamin B12 > 1450 pg/mL (180-914)
[2023-06-30] MEDS ORDERED: Zosyn per Pharmacy NOTE FOLLOW UP SCH ×2 (10:00)
[2023-06-30] MEDS: Aspirin EC 81 mg TAB.EC (enteric coated) PO SCH (10:47)
[2023-06-30] MEDS: Cholecalciferol (VIT D3) 1,000 unit TAB PO SCH (10:48)
[2023-06-30] MEDS ORDERED: Lactated Ringers 1000 ml BAG 1,000 ML IV SCH (11:00)
[2023-06-30] MEDS ORDERED: LORazepam 2 mg VIAL 1 ml IV PUSH ONE (13:48)
[2023-06-30] MEDS ORDERED: Lorazepam PYXIS KEY PRN (13:48)
[2023-06-30] MEDS: ZOSYN 3.375 GM Q8H per EXTENDED INFUSION IV SCH ×2 (17:29→18:24)
[2023-06-30] MEDS ORDERED: cefTRIAXone 1 gm/50 mL D5W 1 GM/50 ML BAG IV SCH (18:00)
[2023-06-30] MEDS ORDERED: NS 0.9% 1000 ml BAG 1,000 ML IV SCH (18:30)
[2023-06-30] MEDS: Azithromycin 500 mg/250 ml NS 500 MG/250 ML BAG IVPB SCH (22:17)
[2023-07-01] MEDS: ZOSYN 3.375 GM Q8H per EXTENDED INFUSION IV SCH ×2 (00:15→09:23)
[2023-07-01] MEDS: Levothyroxine 100 MCG/5 ML VIAL IV SCH (05:52)
[2023-07-01] MEDS ORDERED: Albuterol/Ipratropium NEB.SOL (2.5/0.5 MG) 3 ML NEB.SOLN INH PRN (09:38)
[2023-07-01] MEDS ORDERED: cefTRIAXone 2 gm/50 mL D5W 2 GM/50 ML BAG IV SCH (10:00)
[2023-07-01 10:16] LABS: Hematocrit 26.9 % (35-45); Hemoglobin 9.1 g/dL (11.5-14.3); Mean Corpuscular Hemoglobin 34.4 pg (27-33); Mean Corpuscular Hgb Conc 33.7 g/dL (31-36); Mean Platelet Volume 8.4 fL (7.5-11.2); Platelet Count 175 10^3/uL (150-450); Red Blood Count 2.64 10^6/uL (3.63-4.92); Red Cell Distribution Width 17.4 % (12-17); White Blood Count 3.5 10^3/uL (3.8-11.8)
[2023-07-01 10:33] LABS: Calcium 8.4 mg/dL (8.6-10.3); Creatinine, Serum 0.6 mg/dL (0.51-0.95); Magnesium 1.9 mg/dL (1.9-2.7); Potassium 3.4 mmol/L (3.5-5.0); eGFR CKD-EPI 95.9 (>60)
[2023-07-01] MEDS: Aspirin EC 81 mg TAB.EC (enteric coated) PO SCH (10:47)
[2023-07-01] MEDS: Cholecalciferol (VIT D3) 1,000 unit TAB PO SCH (10:47)
[2023-07-01 10:48] LABS: ABS Basophils 0.1 10^3/uL (0.0-0.1); ABS Lymphocytes 0.2 10^3/uL (1.0-4.8); ABS Monocytes 0.4 10^3/uL (0.0-0.9); ABS Neutrophils 2.9 10^3/uL (1.5-7.6); ABS Nucleated RBC 0.02 10^3/ul; Eosinophil % 0.4 %; Lymphocyte % 5.1 %; Nucleated Red Blood Cells % 0.4 %/100WBC (0.0-0.8)
[2023-07-01] MEDS ORDERED: Albuterol/Ipratropium NEB.SOL (2.5/0.5 MG) 3 ML NEB.SOLN ONE (13:36)
[2023-07-01] MEDS: cefTRIAXone 2 GM ADDV.VIAL 2 GM in NS 0.9% 100 ml BAG 100 ML IV SCH (13:42)
[2023-07-01] MEDS ORDERED: ACETAMINOPHEN IV ONE ×3 (13:59→15:00)
[2023-07-01] MEDS ORDERED: Potassium Chloride LIQUID 20 MEQ/15 ML LIQUID PO ONE ×2 (14:00→18:00)
[2023-07-01] MEDS: Albuterol/Ipratropium NEB.SOL (2.5/0.5 MG) 3 ML NEB.SOLN INH SCH ×2 (14:03→18:40)
[2023-07-01 17:58] LABS: PCO2 Arterial 61 mmHg (35-45); PO2 Arterial 132 mmHg (80-100)
[2023-07-01] MEDS ORDERED: Bumetanide IV 0.25 MG/ML 4 ml VIAL (1 mg) IV SLOW PU PRN (18:13)
[2023-07-01] MEDS: methylPREDNISolone SOD SUCC 125 mg 2 ML VIAL IV SCH (18:42)
[2023-07-01 19:53] LABS: High Sensitivity Troponin 1 Hr 65 pg/mL (<15)
[2023-07-01] MEDS: Enoxaparin 40 MG/0.4 ML SYR SUBCUT SCH (21:11)
[2023-07-01] MEDS: Azithromycin 500 mg/250 ml NS 500 MG/250 ML BAG IVPB SCH (22:33)
[2023-07-01] MEDS ORDERED: Furosemide 40 mg/4 ml IV VIAL IV ONE (23:37)
[2023-07-02] MEDS: Albuterol/Ipratropium NEB.SOL (2.5/0.5 MG) 3 ML NEB.SOLN INH SCH ×4 (01:26→19:32)
[2023-07-02] MEDS: Levothyroxine 100 MCG/5 ML VIAL IV SCH (05:36)
[2023-07-02 06:59] LABS: Hematocrit 25.6 % (35-45); Hemoglobin 8.7 g/dL (11.5-14.3); Mean Corpuscular Hemoglobin 34.4 pg (27-33); Mean Corpuscular Volume 101.2 fL (80-97); Mean Platelet Volume 8.9 fL (7.5-11.2); Platelet Count 143 10^3/uL (150-450); Red Blood Count 2.53 10^6/uL (3.63-4.92); Red Cell Distribution Width 17.4 % (12-17); White Blood Count 3.2 10^3/uL (3.8-11.8)
[2023-07-02 07:25] LABS: ABS Lymphocytes 0.1 10^3/uL (1.0-4.8); ABS Monocytes 0.2 10^3/uL (0.0-0.9); ABS Neutrophils 2.8 10^3/uL (1.5-7.6); ABS Nucleated RBC 0.01 10^3/ul; Eosinophil % 0.2 %; Lymphocyte % 4.2 %; Nucleated Red Blood Cells % 0.3 %/100WBC (0.0-0.8)
[2023-07-02 08:11] LABS: Anion Gap 19 mmol/L (2-16); Blood Urea Nitrogen 14 mg/dL (6-24); CO2 Carbon Dioxide 28 mmol/L (22-32); Calcium 8.9 mg/dL (8.6-10.3); Chloride 96 mmol/L (101-111); Creatinine, Serum 0.77 mg/dL (0.51-0.95); Glucose 120 mg/dL (70-100); Magnesium 1.6 mg/dL (1.9-2.7); Sodium 143 mmol/L (135-145); eGFR CKD-EPI 82.4 (>60)
[2023-07-02] MEDS ORDERED: Morphine 2 MG/ML SYRINGE IV PRN (09:07)
[2023-07-02] MEDS ORDERED: Magnesium Sulfate 2 gm BAG 2 GM/50 ML BAG IVPB ONE (09:17)
[2023-07-02 10:01] LABS: Potassium, Whole Blood 3.3 mmol/L (3.4-4.5)
[2023-07-02 10:18] LABS: Potassium Redraw 3.2 mmol/L (3.5-5.0)
[2023-07-02] MEDS ORDERED: ACETAMINOPHEN IV PRN (10:24)
[2023-07-02] MEDS: cefTRIAXone 2 GM ADDV.VIAL 2 GM in NS 0.9% 100 ml BAG 100 ML IV SCH (11:09)
[2023-07-02] MEDS: methylPREDNISolone SOD SUCC 125 mg 2 ML VIAL IV SCH ×2 (11:09→19:51)
[2023-07-02] MEDS ORDERED: Magnesium Sulfate IV 1GM/100ML 1 GM/100 ML BAG IV ONE (11:17)
[2023-07-02] MEDS: Cholecalciferol (VIT D3) 1,000 unit TAB PO SCH (11:52)
[2023-07-02] MEDS: Aspirin EC 81 mg TAB.EC (enteric coated) PO SCH (11:52)
[2023-07-02] MEDS: Morphine 2 MG/ML SYRINGE IV PRN (13:39)
[2023-07-02] MEDS: KCL 20 MEQ/100 ML IVPREMIX 20 MEQ/100 ML BAG IV SCH ×2 (13:59→16:24)
[2023-07-02] MEDS: NS 0.9% 1000 ml BAG 1,000 ML IV SCH (18:30)
[2023-07-02] MEDS ORDERED: diazePAM INJ CARPUJECT 5 MG/ML SYRINGE IV ONE (20:12)
[2023-07-02] MEDS: Azithromycin 500 mg/250 ml NS 500 MG/250 ML BAG IVPB SCH (21:34)
[2023-07-02] MEDS: Enoxaparin 40 MG/0.4 ML SYR SUBCUT SCH (23:23)
[2023-07-03] MEDS: Albuterol/Ipratropium NEB.SOL (2.5/0.5 MG) 3 ML NEB.SOLN INH SCH ×4 (01:24→19:27)
[2023-07-03] MEDS: NS 0.9% 1000 ml BAG 1,000 ML IV SCH ×3 (03:01→18:44)
[2023-07-03] MEDS: Levothyroxine 100 MCG/5 ML VIAL IV SCH (05:38)
[2023-07-03 06:13] LABS: Hematocrit 24.7 % (35-45); Hemoglobin 8.3 g/dL (11.5-14.3); Mean Corpuscular Hemoglobin 33.5 pg (27-33); Mean Corpuscular Hgb Conc 33.6 g/dL (31-36); Mean Corpuscular Volume 99.7 fL (80-97); Mean Platelet Volume 9.1 fL (7.5-11.2); Platelet Count 151 10^3/uL (150-450); Red Blood Count 2.47 10^6/uL (3.63-4.92); White Blood Count 3.9 10^3/uL (3.8-11.8)
[2023-07-03 06:36] LABS: ABS Lymphocytes 0.1 10^3/uL (1.0-4.8); ABS Monocytes 0.4 10^3/uL (0.0-0.9); ABS Neutrophils 3.4 10^3/uL (1.5-7.6); ABS Nucleated RBC 0.01 10^3/ul; Lymphocyte % 2.5 %; Nucleated Red Blood Cells % 0.2 %/100WBC (0.0-0.8)
[2023-07-03 06:44] LABS: Calcium 8.5 mg/dL (8.6-10.3); Creatinine, Serum 0.7 mg/dL (0.51-0.95); Magnesium 1.9 mg/dL (1.9-2.7); Phosphorus 2.9 mg/dL (2.5-5.0); Potassium 2.7 mmol/L (3.5-5.0); eGFR CKD-EPI 92.4 (>60)
[2023-07-03] MEDS ORDERED: Magnesium Sulfate IV 1GM/100ML 1 GM/100 ML BAG IV ONE (07:21)
[2023-07-03] MEDS: methylPREDNISolone SOD SUCC 125 mg 2 ML VIAL IV SCH ×2 (08:25→18:37)
[2023-07-03] MEDS: KCL 10 MEQ/50 ML IVPREMIX 10 MEQ/50 ML BAG IV SCH ×2 (08:31→09:37)
[2023-07-03] MEDS: Nicotine PATCH 7 MG/24 HR PATCH TRANSDERM SCH (08:34)
[2023-07-03] MEDS: cefTRIAXone 2 GM ADDV.VIAL 2 GM in NS 0.9% 100 ml BAG 100 ML IV SCH (09:41)
[2023-07-03] MEDS ORDERED: Furosemide 40 mg/4 ml IV VIAL IV ONE (09:53)
[2023-07-03] MEDS: KCL 20 MEQ/100 ML IVPREMIX 20 MEQ/100 ML BAG IV SCH ×2 (16:13→18:41)
[2023-07-03] MEDS ORDERED: Lorazepam PYXIS KEY PRN ×2 (17:06→17:17)
[2023-07-03] MEDS ORDERED: LORazepam 2 mg VIAL 1 ml IV PUSH PRN (17:06)
[2023-07-03] MEDS: Azithromycin 500 mg/250 ml NS 500 MG/250 ML BAG IVPB SCH (21:54)
[2023-07-03] MEDS: Enoxaparin 40 MG/0.4 ML SYR SUBCUT SCH (21:59)
[2023-07-03] MEDS: LORazepam 2 mg VIAL 1 ml IV PUSH PRN (22:21)
[2023-07-04] MEDS: Albuterol/Ipratropium NEB.SOL (2.5/0.5 MG) 3 ML NEB.SOLN INH SCH ×4 (01:24→20:09)
[2023-07-04] MEDS: NS 0.9% 1000 ml BAG 1,000 ML IV SCH (05:46)
[2023-07-04] MEDS: methylPREDNISolone SOD SUCC 125 mg 2 ML VIAL IV SCH (05:48)
[2023-07-04 07:54] LABS: ABS Lymphocytes 0.1 10^3/uL (1.0-4.8); ABS Monocytes 0.5 10^3/uL (0.0-0.9); ABS Neutrophils 3.3 10^3/uL (1.5-7.6); ABS Nucleated RBC 0.01 10^3/ul; Eosinophil % 0.1 %; Hematocrit 25.1 % (35-45); Hemoglobin 8.5 g/dL (11.5-14.3); Mean Corpuscular Hemoglobin 33.5 pg (27-33); Mean Corpuscular Volume 98.5 fL (80-97); Mean Platelet Volume 8.8 fL (7.5-11.2); Nucleated Red Blood Cells % 0.3 %/100WBC (0.0-0.8); Platelet Count 147 10^3/uL (150-450); Red Blood Count 2.55 10^6/uL (3.63-4.92); Red Cell Distribution Width 16.6 % (12-17); White Blood Count 3.9 10^3/uL (3.8-11.8)
[2023-07-04 08:22] LABS: C Reactive Protein 99.26 mg/L (<8.01); Creatinine, Serum 0.49 mg/dL (0.51-0.95); Magnesium 1.4 mg/dL (1.9-2.7); Phosphorus 1.7 mg/dL (2.5-5.0); Potassium 2.4 mmol/L (3.5-5.0); eGFR CKD-EPI 100.7 (>60)
[2023-07-04] MEDS ORDERED: Magnesium Sulfate 2 gm BAG 2 GM/50 ML BAG IVPB ONE (08:27)
[2023-07-04] MEDS ORDERED: LORazepam 2 mg VIAL 1 ml IV PUSH SCH (09:00)
[2023-07-04] MEDS: KCL 20 MEQ/100 ML IVPREMIX 20 MEQ/100 ML BAG IV SCH ×4 (09:40→17:42)
[2023-07-04] MEDS: Nicotine PATCH 7 MG/24 HR PATCH TRANSDERM SCH (09:46)
[2023-07-04] MEDS: Escitalopram SOLN ORALSYR 5 MG/5 ML NG TUBE SCH (09:57)
[2023-07-04] MEDS ORDERED: Magnesium Sulfate IV 1GM/100ML 1 GM/100 ML BAG IV ONE (10:27)
[2023-07-04] MEDS: cefTRIAXone 2 GM ADDV.VIAL 2 GM in NS 0.9% 100 ml BAG 100 ML IV SCH (11:10)
[2023-07-04] MEDS: LORazepam 2 mg VIAL 1 ml IV PUSH PRN (18:04)
[2023-07-04] MEDS ORDERED: Potassium & Sodium Phos 250 mg = 1 PACKET PO SCH (21:00)
[2023-07-04] MEDS: Enoxaparin 40 MG/0.4 ML SYR SUBCUT SCH (21:55)
[2023-07-05] MEDS: Albuterol/Ipratropium NEB.SOL (2.5/0.5 MG) 3 ML NEB.SOLN INH SCH ×4 (01:48→19:43)
[2023-07-05 06:30] LABS: Calcium 7.8 mg/dL (8.6-10.3); Creatinine, Serum 0.41 mg/dL (0.51-0.95); Magnesium 1.7 mg/dL (1.9-2.7); Phosphorus 1.5 mg/dL (2.5-5.0); eGFR CKD-EPI 105.1 (>60)
[2023-07-05] MEDS ORDERED: methylPREDNISolone SOD SUCC 125 mg 2 ML VIAL IV SCH (09:00)
[2023-07-05] MEDS: Escitalopram SOLN ORALSYR 5 MG/5 ML NG TUBE SCH (09:14)
[2023-07-05] MEDS: Nicotine PATCH 7 MG/24 HR PATCH TRANSDERM SCH (09:15)
[2023-07-05] MEDS ORDERED: Magnesium Sulfate 2 gm BAG 2 GM/50 ML BAG IVPB ONE (09:30)
[2023-07-05] MEDS: Potassium & Sodium Phos 250 mg = 1 PACKET PO SCH ×3 (09:30→22:07)
[2023-07-05] MEDS: KCL 20 MEQ/100 ML IVPREMIX 20 MEQ/100 ML BAG IV SCH ×2 (09:34→11:44)
[2023-07-05] MEDS ORDERED: Magnesium Sulfate IV 1GM/100ML 1 GM/100 ML BAG IV ONE (10:30)
[2023-07-05] MEDS: cefTRIAXone 2 GM ADDV.VIAL 2 GM in NS 0.9% 100 ml BAG 100 ML IV SCH (11:37)
[2023-07-05] MEDS ORDERED: Potassium Chloride LIQUID 20 MEQ/15 ML LIQUID PO ONE (16:49)
[2023-07-05] MEDS: Enoxaparin 40 MG/0.4 ML SYR SUBCUT SCH (22:07)
[2023-07-06] MEDS: Albuterol/Ipratropium NEB.SOL (2.5/0.5 MG) 3 ML NEB.SOLN INH SCH ×2 (06:55→19:42)
[2023-07-06 07:19] LABS: Calcium 8.4 mg/dL (8.6-10.3); Creatinine, Serum 0.43 mg/dL (0.51-0.95); Phosphorus 2.9 mg/dL (2.5-5.0); eGFR CKD-EPI 103.9 (>60)
[2023-07-06] MEDS ORDERED: methylPREDNISolone SOD SUCC 40 mg/ml 1 ml VIAL IV SCH (09:00)
[2023-07-06] MEDS: Escitalopram SOLN ORALSYR 5 MG/5 ML NG TUBE SCH (10:09)
[2023-07-06] MEDS: Potassium & Sodium Phos 250 mg = 1 PACKET PO SCH ×3 (10:09→22:50)
[2023-07-06] MEDS: cefTRIAXone 2 GM ADDV.VIAL 2 GM in NS 0.9% 100 ml BAG 100 ML IV SCH (10:19)
[2023-07-06] MEDS: Nicotine PATCH 7 MG/24 HR PATCH TRANSDERM SCH (11:27)
[2023-07-06] MEDS: Mometasone/Formoter 200/5 MDI INH SCH ×2 (14:43→19:39)
[2023-07-06] MEDS: Enoxaparin 40 MG/0.4 ML SYR SUBCUT SCH (22:57)
[2023-07-07] MEDS: Potassium & Sodium Phos 250 mg = 1 PACKET PO SCH ×3 (07:35→21:54)
[2023-07-07] MEDS: Nicotine PATCH 7 MG/24 HR PATCH TRANSDERM SCH (07:36)
[2023-07-07] MEDS: Escitalopram SOLN ORALSYR 5 MG/5 ML NG TUBE SCH (07:36)
[2023-07-07] MEDS: Mometasone/Formoter 200/5 MDI INH SCH ×2 (07:45→18:06)
[2023-07-07] MEDS: Albuterol/Ipratropium NEB.SOL (2.5/0.5 MG) 3 ML NEB.SOLN INH SCH ×2 (07:46→18:06)
[2023-07-07 09:37] LABS: Calcium 8.4 mg/dL (8.6-10.3); Creatinine, Serum 0.44 mg/dL (0.51-0.95); Magnesium 1.7 mg/dL (1.9-2.7); eGFR CKD-EPI 103.3 (>60)
[2023-07-07] MEDS: cefTRIAXone 2 GM ADDV.VIAL 2 GM in NS 0.9% 100 ml BAG 100 ML IV SCH (09:53)
[2023-07-07] MEDS ORDERED: Albuterol HFA INHALER 8 gm MDI INH PRN (13:38)
[2023-07-07] MEDS ORDERED: Magnesium Sulfate 2 gm BAG 2 GM/50 ML BAG IVPB ONE (13:48)
[2023-07-07] MEDS ORDERED: Magnesium Sulfate IV 1GM/100ML 1 GM/100 ML BAG IV ONE (15:48)
[2023-07-07] MEDS: Enoxaparin 40 MG/0.4 ML SYR SUBCUT SCH (21:27)
[2023-07-08] MEDS: Albuterol/Ipratropium NEB.SOL (2.5/0.5 MG) 3 ML NEB.SOLN INH SCH ×2 (08:02→19:57)
[2023-07-08] MEDS: Mometasone/Formoter 200/5 MDI INH SCH ×2 (08:02→19:57)
[2023-07-08 08:50] LABS: Calcium 8.2 mg/dL (8.6-10.3); Creatinine, Serum 0.42 mg/dL (0.51-0.95); Magnesium 2.1 mg/dL (1.9-2.7); Phosphorus 4.2 mg/dL (2.5-5.0); Potassium 3.6 mmol/L (3.5-5.0); eGFR CKD-EPI 104.5 (>60)
[2023-07-08] MEDS ORDERED: Potassium Chloride LIQUID 20 MEQ/15 ML LIQUID PO ONE (09:40)
[2023-07-08] MEDS: Potassium & Sodium Phos 250 mg = 1 PACKET PO SCH ×3 (10:19→20:20)
[2023-07-08] MEDS: Escitalopram SOLN ORALSYR 5 MG/5 ML NG TUBE SCH (10:20)
[2023-07-08] MEDS: Nicotine PATCH 7 MG/24 HR PATCH TRANSDERM SCH (10:20)
[2023-07-08] MEDS: Enoxaparin 40 MG/0.4 ML SYR SUBCUT SCH (20:27)
[2023-07-09 06:02] LABS: Platelet Count 133 10^3/uL (150-450)
[2023-07-09 06:06] LABS: Mean Platelet Volume 10.2 fL (7.5-11.2)
[2023-07-09 06:19] LABS: INR 0.93 (0.83-1.13)
[2023-07-09 06:21] LABS: Calcium 8.2 mg/dL (8.6-10.3); Creatinine, Serum 0.39 mg/dL (0.51-0.95); Magnesium 1.8 mg/dL (1.9-2.7); Phosphorus 4.2 mg/dL (2.5-5.0); Potassium 4.2 mmol/L (3.5-5.0); eGFR CKD-EPI 106.4 (>60)
[2023-07-09] MEDS ORDERED: LORazepam 2 mg VIAL 1 ml IV PUSH ONE (07:16)
[2023-07-09] MEDS ORDERED: Lorazepam PYXIS KEY PRN (07:16)
[2023-07-09] MEDS ORDERED: Magnesium Sulfate 2 gm BAG 2 GM/50 ML BAG IVPB ONE (07:21)
[2023-07-09] MEDS: Nicotine PATCH 7 MG/24 HR PATCH TRANSDERM SCH (07:25)
[2023-07-09] MEDS: Escitalopram SOLN ORALSYR 5 MG/5 ML NG TUBE SCH (07:25)
[2023-07-09] MEDS: Potassium & Sodium Phos 250 mg = 1 PACKET PO SCH ×3 (07:26→21:06)
[2023-07-09] MEDS: Albuterol/Ipratropium NEB.SOL (2.5/0.5 MG) 3 ML NEB.SOLN INH SCH ×2 (08:29→19:46)
[2023-07-09] MEDS: Mometasone/Formoter 200/5 MDI INH SCH ×2 (08:30→19:46)
[2023-07-09] MEDS ORDERED: Propofol 10 MG/ML 20 ML BTL ONE (09:04)
[2023-07-09] MEDS ORDERED: Lidocaine 2% PF 5 ML VIAL ONE (09:04)
[2023-07-09] MEDS ORDERED: Naloxone 0.4 mg VIAL 0.4 mg/ml 1 ml VIAL IV PRN (10:16)
[2023-07-09] MEDS ORDERED: Ondansetron 4 mg VIAL 2 MG/ML 2 ml VIAL IV PRN (10:16)
[2023-07-09] MEDS: Enoxaparin 40 MG/0.4 ML SYR SUBCUT SCH (21:06)
[2023-07-10 06:06] LABS: Albumin 2.9 g/dL (3.2-5.2); Albumin/Globulin Ratio 1.1 (1-3); Calcium 8.2 mg/dL (8.6-10.3); Creatinine, Serum 0.43 mg/dL (0.51-0.95); Globulin 2.7 g/dL (2-4); Magnesium 1.9 mg/dL (1.9-2.7); Potassium 3.8 mmol/L (3.5-5.0); Total Bilirubin 0.4 mg/dL (0.2-1.0); Total Protein 5.6 g/dL (6.4-8.9); eGFR CKD-EPI 103.9 (>60)
[2023-07-10] MEDS: Mometasone/Formoter 200/5 MDI INH SCH ×2 (07:49→20:09)
[2023-07-10] MEDS: Albuterol/Ipratropium NEB.SOL (2.5/0.5 MG) 3 ML NEB.SOLN INH SCH ×2 (07:50→20:08)
[2023-07-10] MEDS: Nicotine PATCH 7 MG/24 HR PATCH TRANSDERM SCH (11:46)
[2023-07-10] MEDS: Escitalopram SOLN ORALSYR 5 MG/5 ML NG TUBE SCH ×2 (11:46→14:23)
[2023-07-10] MEDS: Potassium & Sodium Phos 250 mg = 1 PACKET PO SCH ×3 (11:47→20:57)
[2023-07-10] MEDS: Enoxaparin 40 MG/0.4 ML SYR SUBCUT SCH (20:55)
[2023-07-11 06:45] LABS: Calcium 8.9 mg/dL (8.6-10.3); Creatinine, Serum 0.49 mg/dL (0.51-0.95); Magnesium 1.8 mg/dL (1.9-2.7); Phosphorus 4.2 mg/dL (2.5-5.0); eGFR CKD-EPI 100.7 (>60)
[2023-07-11 06:51] LABS: ABS Lymphocytes 0.3 10^3/uL (1.0-4.8); ABS Monocytes 0.4 10^3/uL (0.0-0.9); ABS Neutrophils 2.9 10^3/uL (1.5-7.6); Eosinophil % 0.1 %; Hematocrit 26.3 % (35-45); Lymphocyte % 8.6 %; Mean Corpuscular Hemoglobin 33.6 pg (27-33); Mean Corpuscular Hgb Conc 34.1 g/dL (31-36); Mean Corpuscular Volume 98.5 fL (80-97); Mean Platelet Volume 10.7 fL (7.5-11.2); Nucleated Red Blood Cells % 0.1 %/100WBC (0.0-0.8); Platelet Count 156 10^3/uL (150-450); Red Blood Count 2.67 10^6/uL (3.63-4.92); Red Cell Distribution Width 16.3 % (12-17); White Blood Count 3.7 10^3/uL (3.8-11.8)
[2023-07-11] MEDS: Mometasone/Formoter 200/5 MDI INH SCH ×2 (07:13→20:10)
[2023-07-11] MEDS: Albuterol/Ipratropium NEB.SOL (2.5/0.5 MG) 3 ML NEB.SOLN INH SCH ×2 (07:14→20:09)
[2023-07-11] MEDS ORDERED: Magnesium Sulfate IV 1GM/100ML 1 GM/100 ML BAG IV ONE (07:32)
[2023-07-11] MEDS ORDERED: Influenza vaccine *QUAD* *2023-24* 0.5 ML SYRINGE IM ONE (09:00)
[2023-07-11] MEDS: Escitalopram SOLN ORALSYR 5 MG/5 ML NG TUBE SCH (10:55)
[2023-07-11] MEDS: Potassium & Sodium Phos 250 mg = 1 PACKET PO SCH ×3 (10:56→21:11)
[2023-07-11] MEDS: Nicotine PATCH 7 MG/24 HR PATCH TRANSDERM SCH (11:04)
[2023-07-11] MEDS ORDERED: ceFAZolin 1 GM ADVAN 1 GM ADDV.VIAL IVPB ONE (14:17)
[2023-07-11] MEDS ORDERED: Glucagon 1 mg VIAL KIT ONE (14:34)
[2023-07-11] MEDS ORDERED: Midazolam 2 mg/2 ml VIAL 1 mg/ml 2 ml VIAL (2 mg) ONE (15:24)
[2023-07-11] MEDS ORDERED: fentaNYL 100 mcg/2 ml 50 MCG/ML VIAL ONE ×2 (15:24→15:41)
[2023-07-11] MEDS ORDERED: Bupivacaine 0.5% SDV PF 30ML VIAL ONE (16:21)
[2023-07-11] MEDS ORDERED: NS 0.9% 1000 ml BAG 1,000 ML IV SCH (18:00)
[2023-07-11] MEDS: Enoxaparin 40 MG/0.4 ML SYR SUBCUT SCH (20:58)
[2023-07-11] MEDS: Morphine 2 MG/ML SYRINGE IV PRN (20:59)
[2023-07-11] MEDS ORDERED: LORazepam 2 mg VIAL 1 ml IV PUSH ONE (23:23)
[2023-07-11] MEDS ORDERED: Lorazepam PYXIS KEY PRN (23:23)
[2023-07-12 06:36] LABS: Hemoglobin 7.9 g/dL (11.5-14.3); Mean Corpuscular Hemoglobin 34.1 pg (27-33); Mean Corpuscular Hgb Conc 34.5 g/dL (31-36); Mean Corpuscular Volume 98.9 fL (80-97); Red Blood Count 2.32 10^6/uL (3.63-4.92); Red Cell Distribution Width 15.8 % (12-17); White Blood Count 3.6 10^3/uL (3.8-11.8)
[2023-07-12 06:47] LABS: Creatinine, Serum 0.36 mg/dL (0.51-0.95); Magnesium 1.7 mg/dL (1.9-2.7); Phosphorus 3.2 mg/dL (2.5-5.0); Potassium 3.1 mmol/L (3.5-5.0); eGFR CKD-EPI 108.5 (>60)
[2023-07-12] MEDS: Albuterol/Ipratropium NEB.SOL (2.5/0.5 MG) 3 ML NEB.SOLN INH SCH (07:10)
[2023-07-12] MEDS: Mometasone/Formoter 200/5 MDI INH SCH (07:10)
[2023-07-12 07:14] LABS: ABS Lymphocytes 0.5 10^3/uL (1.0-4.8); ABS Monocytes 0.5 10^3/uL (0.0-0.9); ABS Neutrophils 2.6 10^3/uL (1.5-7.6); ABS Nucleated RBC 0.01 10^3/ul; Eosinophil % 0.1 %; Lymphocyte % 12.7 %; Mean Platelet Volume 9.6 fL (7.5-11.2); Nucleated Red Blood Cells % 0.4 %/100WBC (0.0-0.8); Platelet Count 156 10^3/uL (150-450)
[2023-07-12] MEDS: Morphine 2 MG/ML SYRINGE IV PRN (08:35)
[2023-07-12] MEDS: Nicotine PATCH 7 MG/24 HR PATCH TRANSDERM SCH (11:18)
[2023-07-12] MEDS: Potassium & Sodium Phos 250 mg = 1 PACKET PO SCH (12:48)
[2023-07-12] MEDS: Escitalopram SOLN ORALSYR 5 MG/5 ML NG TUBE SCH (12:48)
[2023-07-12] MEDS ORDERED: Albuterol/Ipratropium NEB.SOL (2.5/0.5 MG) 3 ML NEB.SOLN INH PRN (12:56)
[2023-07-12 14:06] VITALS: BP 136/50
== END 2023-07-12 16:45 | disposition home or self-care (01) | DRG 871 ==
LOC: ED 14:06 → EDHOLD 14:06 → SUATTDRO 22:12 → MED 22:47 → SUATTDRO 06-30 09:55
PROVIDERS: ADMIT Internal Medicine; ATTEND Hospitalist
PROC: O.GIEGD (2023-07-09 08:35)